=== PATIENT | male | born 1960 | race Caucasian/White ===

== ENCOUNTER 2022-01-18 12:34 | Outpatient (REF) | payer MEDICARE, SELFPAY ==
[2022-01-18 14:09] LABS: MANUAL DIFF FLAG NO
[2022-01-18 14:13] LABS: Basophils Percent Auto 0.7 % (0-2); Eosinophils Absolute Auto 0.2 X10*3/uL (0.0-0.4); Eosinophils Percent Auto 3.2 % (0-4); Hematocrit 46.2 % (42.0-52.0); Hemoglobin 15.7 g/dl (14.0-18.0); Imm Gran Abs Auto 0.02 X10*3/uL (0.00-0.03); Imm Gran Pct Auto 0.3 % (0.0-0.4); Lymphocytes Absolute Auto 1.5 X10*3/uL (1.2-4.9); Lymphocytes Percent Auto 25.3 % (20-40); Mean Corpuscular Hemoglobin 30.5 pg (27.0-33.0); Mean Corpuscular Volume 89.7 fL (80.0-98.0); Mean Platelet Volume 11.4 fL (9.4-12.4); Monocytes Absolute Auto 0.6 X10*3/uL (0.1-1.2); Monocytes Percent Auto 9.5 % (2-11); Neutrophils Absolute Auto 3.7 x10*3/uL (2.0-8.3); Platelet Count 189 X10*3/uL (160-400); Red Blood Count 5.15 X10*6/uL (4.60-5.80); Red Cell Distribution Width 12.2 % (11.0-16.0)
[2022-01-18 14:46] LABS: Alanine Aminotransferase 23 U/L (0-40); Albumin Level 4.3 g/dL (3.5-5.0); Alkaline Phosphatase 110 U/L (39-117); Anion Gap 14 (12-20); Aspartate Amino Transferase 19 U/L (5-37); Bilirubin Total 0.8 mg/dL (0.0-1.0); Blood Urea Nitrogen 15 mg/dL (9-16); Calcium 9.3 mg/dL (8.4-10.2); Carbon Dioxide 26 mmol/L (22-29); Chloride 103 mmol/L (96-108); Cholesterol 183 mg/dL; Estimated Glomerular Filt Rate > 60; Glucose Fasting 87 mg/dL (60-99); HDL Cholesterol 40 mg/dL; LDL Cholesterol Calculated 115 mg/dl; Potassium 3.9 mmol/L (3.3-5.1); Sodium 139 mmol/L (135-145); Total Protein 6.6 g/dL (6.5-8.0); Triglycerides 143 mg/dL
[2022-01-18 15:08] LABS: Prostate Specific Antigen Scr 1.89 ng/mL (<0.05-4.0); TSH reflex Free T4 0.88 uIU/mL (0.32-4.0)
[2022-01-22 18:23] LABS: Testosterone, Free 63.3 pg/mL (35.0-155.0); Testosterone, Total 386 ng/dL (250-1100)
== END 2022-01-18 12:35 | disposition home or self-care (01) ==
LOC: HO.WFDLDS 12:34
PROVIDERS: Visit Provider Family Medicine
DX: Z00.00 Encounter for general adult medical examination without abnormal findings (principal); Z12.5 Encounter for screening for malignant neoplasm of prostate; M54.9 Dorsalgia, unspecified; G89.29 Other chronic pain
CPT/HCPCS: 36415; 80053; 80061; 84153; 84402; 84403; 84443; 85025

== ENCOUNTER 2022-02-15 11:00 | Outpatient (RCR) | payer MEDICARE, SELFPAY ==
[2022-01-28 10:13] VITALS: BP 120/78; PULSE 60; O2SAT 97
== END 2022-03-22 12:37 | disposition home or self-care (01) ==
LOC: HO.PTWFD 11:00
PROVIDERS: Visit Provider Family Medicine
DX: M54.9 Dorsalgia, unspecified (principal)
CPT/HCPCS: 97110; 97162; 97530

== ENCOUNTER → 2022-09-15 09:39 | Outpatient (BNVA) | payer MEDICARE, SELFPAY | PROVIDERS: PCP Family Medicine; Visit Provider Urology | DX: N53.19 Other ejaculatory dysfunction (principal) | CPT/HCPCS: 99202 ==

== ENCOUNTER 2022-12-14 07:49 | Outpatient (REF) | payer MEDICARE, SELFPAY ==
[2022-12-18 18:04] LABS: Testosterone, Free 71.6 pg/mL (35.0-155.0); Testosterone, Total 296 ng/dL (250-1100)
== END 2022-12-14 07:50 | disposition home or self-care (01) ==
LOC: HO.WFDLDS 07:49
PROVIDERS: Visit Provider Urology
DX: N53.19 Other ejaculatory dysfunction (principal)
CPT/HCPCS: 36415; 84402; 84403

== ENCOUNTER 2022-12-21 11:08 | Outpatient (AMB) | payer MEDICARE, SELFPAY ==
--- NOTE | 2022-12-21 11:10 | A.OFFVIS_ITS ---
Intake Intake Visit Reasons: 3M Testosterone(Pending) Intake Note: Patient is present for Telephone Testosterone Urology Med:Tadalafil Antibiotic Allergy: none Blood Thinner: none [facility] Allergies meperidine [Demerol] Allergy (Unknown, Verified 12/21/22 11:11) hives bandages Allergy (Mild, Uncoded 12/21/22 11:11) itchy rash Medication List - Last Reconciled 12/21/22 by Tevin Murray MD albuterol sulfate 90 mcg/actuation 2 puffs PO Q4-6H PRN gabapentin 300 mg PO QID PRN lisinopril-hydrochlorothiazide 10-12.5 mg 1 tab PO DAILY 30 days montelukast 10 mg PO BEDTIME 90 days multivitamin (One Daily Multivitamin tablet) 1 tab PO DAILY HPI HPI Comments History of Present Illness Details Aaron is a pleasant male. He is a patient of Dr. Davis. He seen for the following urologic conditions - erectile disorder Telemedicine Evaluation 15 min Consultation [facility] Te[employer] Video attempted Had to stop medications due to heartburn - both daily low dose and on demand Will trial 100 mg sildenafil Erectile disorder Cannot maintain erection Has trouble reaching climax Minimal ejaculatory volume Subsequent secondary depression Baseline labs 01/11 T 386, 12/12 T 300 Fr 72 Failed daily tadalafil with heartburn Understands therapy directed towards obtaining and maintaining erection Further treatment may be required for climax PFSH Social History Housing: House Alcohol intake: current Alcohol intake frequency: holidays/special occasions only Alcohol type: wine Patient Tobacco Use Status: Former Tobacco user e-Cigarette/Vaping Use: Never Used Second Hand Smoke Exposure: No Substance Use Type: Marijuana service: No Current occupational status: retired and disabled Current occupational exposures/hazards: No Cognitive needs: Yes (cane, walker, wheelchair) Hearing needs: No Vision needs: Yes (glasses) Review of Systems Const All systems reviewed & are unremarkable except as noted in HPI and below Reports no additional complaints Resp Reports no additional complaints GI Reports no additional complaints Reports as per HPI Musc Reports no additional complaints Physical Exam Telemedicine evaluation Appropriate responses Regular breathing rate and rhythm HEENT Head: Yes normal to inspection Ears: hearing grossly normal bilaterally Eyes General: appearance normal, both eyes and all related structures Neck Neck: Yes normal visual inspection Chest Chest palpation & inspection: normal inspection of the chest Resp Effort & Inspection: normal respiratory effort and able to speak in complete sentences Assessment & Plan Assessment & Plan (1) Erectile dysfunction: Code(s): N52.9 - Male erectile dysfunction, unspecified Plan Trial sildenafil Medications: New sildenafil administer 60 minutes before intended activity 100 mg PO ONCE 30 days PRN 30 tabs 1RF sexual activity N52.9 - Male erectile dysfunction, unspecified Discontinued tadalafil Discontinued Reason: Patient Completed Course 5 mg PO DAILY 90 days 90 tabs 0RF sexual activity N53.19 - Other ejaculatory dysfunction tadalafil Discontinued Reason: Patient Completed Course 20 mg PO DAILY 30 days PRN 30 tabs 0RF sexual activity N53.19 - Other ejaculatory dysfunction Patient Instructions: Imaging studies, laboratory and physical exam results were discussed and reviewed in detail. No major barriers to patient understanding were identified. An opportunity to ask questions regarding the treatment plan was provided. All questions were answered. The patient expressed understanding and agreement with the above treatment plan. The patient is aware they should contact our office by phone for worsening of their current condition or the appearance of new urologic symptoms. Compliance is encouraged with any medications and followup testing that is ordered. It is a privilege to participate in the urologic care of your patient. If you have any questions or concerns regarding treatment for the above conditions, or other urologic issues, please do not hesitate to contact me. The office telephone contact is [phone]. This note is constructed using voice recognition software. While every effort has been made to ensure accuracy welding lead burner errors may have been included. Yours sincerely, Dr Tevin Murray MD, [facility] - Urology Providers of Expert, Compassionate Care for the Genitourinary System Telehealth Telehealth Location of provider rendering services: practice address Location of patient: address on file Patient Identification confirmed using: Name, : Yes Telehealth method: video Patient verbally consented to treatment: Yes Patient verbally consented to billing insurance company: Yes Patient informed of any privacy concerns related to visit: Yes Coding Level of Care Code Tele Est Pt Level 4 (89054) Diagnoses Erectile dysfunction N52.9
== END 2022-12-21 11:41 | disposition home or self-care (01) ==
LOC: HO.HUSH 11:08
PROVIDERS: PCP Family Medicine; Visit Provider Urology
DX: N52.9 Male erectile dysfunction, unspecified (principal)
CPT/HCPCS: 99214

== ENCOUNTER → 2022-12-21 11:08 | Outpatient (BNVA) | payer MEDICARE, SELFPAY | PROVIDERS: PCP Family Medicine; Visit Provider Urology ==

== ENCOUNTER 2023-02-03 13:15 | Outpatient (REF) | payer MEDICARE, SELFPAY ==
--- NOTE | ~2023-02-03 | MR_ITS ---
EXAMINATION: MR BRAIN WITHOUT AND WITH CONTRAST CLINICAL INFORMATION: Pituitary adenoma. Acoustic neuroma. COMPARISON: Brain MRI 12/04/2021. TECHNIQUE: Multiplanar, multisequence imaging of the brain was performed before and after the intravenous administration of 5 mL of Gadavist. FINDINGS: There is nodular enhancement within the right internal auditory canal measuring up to 6 x 3 mm which appears stable compared with 12/18/2020 and is compatible with patient's known vestibular schwannoma. The inner ear structures are otherwise unremarkable. There is a hypoenhancing lesion within the left aspect of the pituitary gland extending into the cavernous sinus measuring up to 1.3 x 1.2 cm compatible with pituitary adenoma. This lesion appears stable in size compared with 12/18/2020. The normal left cavernous carotid flow void appears maintained. There is no compression of the optic apparatus. There is no acute infarction, hemorrhage, or extra-axial fluid collection. The cerebellar tonsils terminate at the foramen magnum. Mild nonspecific foci of T2/FLAIR hyperintensity are seen within the cerebral white matter. There is a stable right middle cranial fossa arachnoid cyst with mild mass effect on the temporal lobe parenchyma. No hydrocephalus is seen. No abnormal parenchymal enhancement is seen. The arterial flow voids are preserved at the skull base. There is mild paranasal sinus mucosal thickening. MR/MR head/brain wo/w con IMPRESSION: 1. Stable appearance of the right-sided vestibular schwannoma measuring up to 6 x 3 mm. 2. Stable appearance of the left-sided pituitary adenoma measuring up to 1.3 x 1.2 cm. 3. Stable right middle cranial fossa arachnoid cyst.
[2023-02-03] MEDS: gadobutroL 7.5 ML VIAL IVPUSH (14:33)
== END 2023-02-03 13:16 | disposition home or self-care (01) ==
LOC: HO.MRI 13:15
PROVIDERS: PCP Family Medicine; Visit Provider Neurological Surgery
DX: D49.7 Neoplasm of unspecified behavior of endocrine glands and other parts of nervous system (principal); D33.3 Benign neoplasm of cranial nerves
CPT/HCPCS: 70553; A9585

== ENCOUNTER 2023-02-14 11:29 | Outpatient (AMB) | payer MEDICARE, SELFPAY ==
--- NOTE | 2023-02-14 11:35 | A.OFFPC_ITS ---
Vital Signs 02/14/23 11:37 Height 5 ft 9 in Weight 260 lb BMI 38.4 BP 142/78 H Blood Pressure Location Lt brachial Position Sitting Pulse 76 Pulse Source Pulse Oximeter Pulse Oximetry (%) 96 Oxygen Delivery Method Room Air Intake Visit Reasons: f/u hypertension Intake Note: Patient is here to follow up on hypertension today. Allergies meperidine [Demerol] Allergy (Unknown, Verified 02/14/23 11:39) hives bandages Allergy (Mild, Uncoded 02/14/23 11:39) itchy rash Tobacco use date assessed: 02/14/23 Dental Screening Dental Screen Date: 02/14/23 Did you have a dental visit in the last 12 months?: Yes Did you have a dental problem in the last 6 months where you did not have access to dental care?: No Was dental information given to patient?: Patient has dentist HPI f/u hypertension HPI Details 62 y/o male presents to f/u hypertension and chronic conditions. Blood pressure today 142/78. He is on lisinopril-HCTZ 10-12.5mg daily. Pt reports ongoing chronic back pain. [facility] Social History Housing: House Alcohol intake: current Alcohol intake frequency: holidays/special occasions only Alcohol type: wine Patient Tobacco Use Status: Former Tobacco user e-Cigarette/Vaping Use: Never Used Second Hand Smoke Exposure: No Substance Use Type: Marijuana service: No Current occupational status: retired and disabled Current occupational exposures/hazards: No Cognitive needs: Yes (cane, walker, wheelchair) Hearing needs: No Vision needs: Yes (glasses) Questionnaire Thrive Questionnaire Date Thrive assessed: 01/11/22 SHWETA-7 AMB Questionnaire SHWETA-7 Date SHWETA - 7 assessed: 04/05/22 Source: Developed by Drs. Federico Kwan, Raven Anderson, Arnulfo Cooley and colleagues, with an educational jacob from [employer]. Review of Systems Const Denies chills, Denies fatigue, Denies fever(s), Denies headache(s) and Denies weakness ENT Denies dizziness and Denies headache(s) Card Denies chest pain, Denies lightheadedness, Denies dyspnea and Denies other (Palpitations) Resp Denies cough, Denies dyspnea, Denies wheezing and Denies other ( shortness of breath) Musc Denies numbness and Denies tingling Neuro Denies dizziness, Denies headache(s), Denies numbness, Denies tingling, Denies paresthesias and Denies weakness Psych Denies anxiety and Denies depression Endo Denies fatigue Aller/Immun Denies wheezing Physical exam (Primary Care) Vital Signs: Last Vital Signs Pulse 76 02/14/23 11:37 BP 142/78 H 02/14/23 11:37 Pulse Ox 96 02/14/23 11:37 Oxygen Delivery Method Room Air 02/14/23 11:37 BMI result Body Mass Index 38.4 Tobacco/Smoking Status: Tobacco use Status Tobacco use date assessed 02/14/23 02/14/23 11:40 Patient Tobacco Use Status Former Tobacco user 02/14/23 11:37 e-Cigarette/Vaping Use Never Used 02/14/23 11:37 Thrive Assessment: Date of Thrive Assessment Date Thrive assessed 01/11/22 02/14/23 11:37 Const General: no acute distress and well developed Nutritional Appearance: well nourished Orientation/consciousness: patient oriented x3 HENMT Head: Yes normocephalic and Yes atraumatic Eyes General: appearance normal, both eyes and all related structures Pupils: Equal, round and reactive pupils present EOM: EOMs intact bilaterally Resp Effort & Inspection: normal respiratory effort Auscultation: clear to auscultation bilaterally Cardio Rate: regular rate Rhythm: regular rhythm Heart sounds: S1 normal heart sound present, S2 normal heart sound present, no gallops, no murmurs and no rubs Neuro General: patient oriented x3 and gait normal Cranial nerves: Yes Equal, round and reactive pupils present Psych Affect: normal affect Assessment and Plan Assessment & Plan (1) Hypertension: Code(s): I10 - Essential (primary) hypertension Plan: Blood pressure is above goal of less than 140/90 Increase lisinopril an lisinopril-hydrochlorothiazide combo pill (2) Chronic back pain: Code(s): M54.9 - Dorsalgia, unspecified; G89.29 - Other chronic pain Plan: Chronic back pain with neuropathic pain in legs bilaterally He uses gabapentin at night which is not fully control his pain Trial switching to pregabalin (3) Neuropathic pain: Code(s): M79.2 - Neuralgia and neuritis, unspecified Plan: As above Medications: New pregabalin (Lyrica) 100 mg PO BID 60 caps 1RF 30 days lisinopril-hydrochlorothiazide 20-12.5 mg 1 tab PO DAILY 90 tabs 2RF 90 days Discontinued lisinopril-hydrochlorothiazide 10-12.5 mg Discontinued Reason: Doctor's Order 1 tab PO DAILY 30 tabs 2RF 30 days gabapentin Discontinued Reason: Doctor's Order 300 mg PO QID PRN 120 caps 11RF for pain Coding Level of Care Code Est Pt Level 3 (01683) Diagnoses Hypertension I10 Chronic back pain M54.9; G89.29 Neuropathic pain M79.2
[2023-02-14 11:37] VITALS: BP 142/78; PULSE 76; O2SAT 96; BMI 38.4
== END 2023-02-14 12:25 | disposition home or self-care (01) ==
PROVIDERS: PCP Family Medicine; Visit Provider Family Medicine
DX: I10 Essential (primary) hypertension (principal); M54.9 Dorsalgia, unspecified; G89.29 Other chronic pain; M79.2 Neuralgia and neuritis, unspecified
CPT/HCPCS: 99213

== ENCOUNTER 2023-03-14 09:13 | Outpatient (AMB) | payer MEDICARE, SELFPAY ==
--- NOTE | 2023-03-14 09:15 | A.OFFPC_ITS ---
Vital Signs 03/14/23 09:16 Height 5 ft 9 in Weight 262 lb BMI 38.7 BP 138/80 Blood Pressure Location Lt brachial Position Sitting Pulse 73 Pulse Source Pulse Oximeter Pulse Oximetry (%) 95 Oxygen Delivery Method Room Air Intake Visit Reasons: f/u hypertension and chronic neuropathic pain Intake Note: Patient is here for follow up on hypertension and chronic neuropathic pain. Allergies meperidine [Demerol] Allergy (Unknown, Verified 03/14/23 09:19) hives bandages Allergy (Mild, Uncoded 03/14/23 09:19) itchy rash Medication List - Last Reconciled 03/14/23 by Santy Davis MD albuterol sulfate 90 mcg/actuation 2 puffs PO Q4-6H PRN lisinopril-hydrochlorothiazide 20-12.5 mg 1 tab PO DAILY 90 days montelukast 10 mg PO BEDTIME 90 days multivitamin (One Daily Multivitamin tablet) 1 tab PO DAILY pregabalin (Lyrica) 100 mg PO BID 30 days sildenafil 100 mg PO ONCE PRN 30 days Tobacco use date assessed: 03/14/23 Dental Screening Dental Screen Date: 03/14/23 Did you have a dental visit in the last 12 months?: Yes Did you have a dental problem in the last 6 months where you did not have access to dental care?: No Was dental information given to patient?: Patient has dentist HPI f/u hypertension and chronic neuropathic pain HPI Details 62 y/o male presents to f/u hypertension and chronic neuropathic pain. Blood pressure today 138/80. He is on lisinopril-HCTZ 20-12.5mg daily. Had switched gabapentin to Lyrica last office visit. He notes lyrica has been making him tired and has a difficult time getting used to it. [facility] Social History Housing: House Alcohol intake: current Alcohol intake frequency: holidays/special occasions only Alcohol type: wine Patient Tobacco Use Status: Former Tobacco user e-Cigarette/Vaping Use: Never Used Second Hand Smoke Exposure: No Substance Use Type: Marijuana service: No Current occupational status: retired and disabled Current occupational exposures/hazards: No Cognitive needs: Yes (cane, walker, wheelchair) Hearing needs: No Vision needs: Yes (glasses) Questionnaire Thrive Questionnaire Date Thrive assessed: 01/11/22 SHWETA-7 AMB Questionnaire SHWETA-7 Date SHWETA - 7 assessed: 04/05/22 Source: Developed by Drs. Federico Kwan, Raven Anderson, Arnulfo Cooley and colleagues, with an educational jacob from [employer] Review of Systems Const Denies chills, Denies fatigue, Denies fever(s), Denies headache(s) and Denies weakness ENT Denies dizziness and Denies headache(s) Card Denies dyspnea Resp Denies cough, Denies dyspnea, Denies wheezing and Denies other (shortness of breath) Musc Denies numbness and Denies tingling Neuro Denies dizziness, Denies headache(s), Denies numbness, Denies tingling and Denies weakness Psych Denies anxiety and Denies depression Endo Denies fatigue Aller/Immun Denies wheezing Physical exam (Primary Care) Vital Signs: Last Vital Signs Pulse 73 03/14/23 09:16 BP 138/80 03/14/23 09:16 Pulse Ox 95 03/14/23 09:16 Oxygen Delivery Method Room Air 03/14/23 09:16 BMI result Body Mass Index 38.7 Tobacco/Smoking Status: Tobacco use Status Tobacco use date assessed 03/14/23 03/14/23 09:22 Patient Tobacco Use Status Former Tobacco user 03/14/23 09:22 e-Cigarette/Vaping Use Never Used 03/14/23 09:22 Thrive Assessment: Date of Thrive Assessment Date Thrive assessed 01/11/22 03/14/23 09:22 Const General: well developed; No acute distress Nutritional Appearance: well nourished Orientation/consciousness: patient oriented x3 HENMT Head: Yes normocephalic and Yes atraumatic Eyes General: appearance normal, both eyes and all related structures Pupils: Equal, round and reactive pupils present EOM: EOMs intact bilaterally Resp Effort & Inspection: normal respiratory effort Auscultation: clear to auscultation bilaterally Cardio Rate: regular rate Rhythm: regular rhythm Heart sounds: S1 normal heart sound present, S2 normal heart sound present, no gallops, no murmurs and no rubs Neuro General: patient oriented x3 and gait normal Cranial nerves: Yes Equal, round and reactive pupils present Psych Affect: normal affect Assessment and Plan Assessment & Plan (1) Hypertension: Code(s): I10 - Essential (primary) hypertension Plan: Blood?pressure?is?controlled.??Goal?is?less?than?140/90 No?change?to?current?medication?regimen Encouraged?low-sodium?diet,?weight?loss?and?exercise?as?tolerated. (2) Neuropathic pain: Code(s): M79.2 - Neuralgia and neuritis, unspecified Plan: Ongoing?lower?extremity?pain?and?weakness Tolerating?Lyrica?except?for?having?some?sleepiness?from?this. Take?Lyrica?earlier?in?the?evening. Will?increase?dose?of?Lyrica?from?100?mg?q.h.s.?to?200?mg?q.h.s. (3) Chronic back pain: Code(s): M54.9 - Dorsalgia, unspecified; G89.29 - Other chronic pain Plan: Significant?low?back?pain Started?Lyrica?and?he?is?tolerating?it?fairly?well?but?still?has?pain?and?neurop athic?pain?in?lower?extremities. Adjusting?Lyrica?as?above Patient?has?difficulty?adjusting?bed?an d?pillows?as?well?as?pill?is?under?his?legs?to?get?comfortable?while?sleeping. This?is?likely?affecting?his?ability?to?improve?and?recover. He?will?benefit?from?an electric?adjustable?bed.??Ordered. Orders: Orders Prostate Specific Antigen Scr Today Z12.5 - Encounter for screening for malign ant neoplasm of prostate Lipid Panel Today Z00.00 - Encounter for general adult medical examination without abnormal findings TSH reflex Free T4 Today Z00.00 - Encounter for general adult medical examination without abnormal findings Comprehensive [place]. Panel Fast Today Z00.00 - Encounter for general adult medical examination without abnormal findings Microalbumin, Random (w Creat) Today I10 - Essential (primary) hypertension UA and rflx microscopic Today Z00.00 - Encounter for general adult medical examination without abnormal findings Medications: New hospital bed (bed,hospital) Electric adjustable bed, Daily As directed, 999 days 1 ea 0RF G89.29 - Other chronic pain, M54.9 - Dorsalgia, unspecified, M79.2 - Neuralgia and neuritis, unspecified, R26.81 - Unsteadiness on feet, R53.1 - Weakness Changed From pregabalin (Lyrica) 100 mg PO BID 30 days 60 caps 1RF To pregabalin (Lyrica) 200 mg (2 x 100 mg) PO BEDTIME 30 days 60 caps 1RF Coding Level of Care Code Est Pt Level 4 (97705) Diagnoses Hypertension I10 Neuropathic pain M79.2 Chronic back pain M54.9; G89.29
[2023-03-14 09:16] VITALS: BP 138/80; PULSE 73; O2SAT 95; BMI 38.7
== END 2023-03-14 10:10 | disposition home or self-care (01) ==
PROVIDERS: PCP Family Medicine; Visit Provider Family Medicine
DX: I10 Essential (primary) hypertension (principal); M79.2 Neuralgia and neuritis, unspecified; M54.9 Dorsalgia, unspecified; G89.29 Other chronic pain
CPT/HCPCS: 99214

== ENCOUNTER 2023-03-24 12:09 | Outpatient (AMB) | payer MEDICARE, SELFPAY ==
--- NOTE | 2023-03-24 12:10 | MHC.OFFVIS ---
Intake Intake Visit Reasons: 3m follow up Intake Note: Patient is present for Telephone Testosterone Urology Med:Tadalafil Blood Thinner: none Service Station Helper Required: No Allergies latex Allergy (Mild, Verified 04/25/23 11:08) rash meperidine [Demerol] Allergy (Unknown, Verified 04/25/23 11:08) hives bandages Allergy (Mild, Uncoded 04/25/23 11:08) itchy rash HPI HPI Comments History of Present Illness Details Aaron is a pleasant male. He is a patient of Dr. Davis. He seen for the following urologic conditions - erectile disorder - lower urinary tract symptoms Telemedicine Evaluation 15 min Consultation [employer] Tereso Video attempted Had to stop tadalafil medications due to heartburn - both daily low dose and on demand Will trial 100 mg sildenafil Also notes weakness of stream - trial alpha liv Erectile disorder Cannot maintain erection Has trouble reaching climax Minimal ejaculatory volume Subsequent secondary depression Baseline labs 01/11 T 386, 12/12 T 300 Fr 72 Failed daily tadalafil with heartburn Understands therapy directed towards obtaining and maintaining erection Further treatment may be required for climax PFSH Surgical History (Updated 04/25/23 @ 11:12 by Kaye Garcia [facility]) History of spinal fusion History of eye surgery Social History Housing: House Alcohol intake: current Alcohol intake frequency: holidays/special occasions only Alcohol type: wine Patient Tobacco Use Status: Former Tobacco user e-Cigarette/Vaping Use: Never Used Second Hand Smoke Exposure: No Substance Use Type: Marijuana service: No Current occupational status: retired and disabled Current occupational exposures/hazards: No Cognitive needs: Yes (cane, walker, wheelchair) Hearing needs: No Vision needs: Yes (glasses) Review of Systems Const All systems reviewed & are unremarkable except as noted in HPI and below Reports no additional complaints Resp Reports no additional complaints GI Reports no additional complaints Reports as per HPI Musc Reports no additional complaints Physical Exam Telemedicine evaluation Appropriate responses Regular breathing rate and rhythm HEENT Head: Yes normal to inspection Ears: hearing grossly normal bilaterally Eyes General: appearance normal, both eyes and all related structures Neck Neck: Yes normal visual inspection Chest Chest palpation & inspection: normal inspection of the chest Resp Effort & Inspection: normal respiratory effort and able to speak in complete sentences Assessment & Plan Assessment & Plan (1) Bladder outlet obstruction: Code(s): N32.0 - Bladder-neck obstruction Plan Two month follow-up PVR Orders: Orders US bladder 03/24/23 R39.12 - Poor urinary stream, N32.0 - Bladder-neck obstruction Medications: New tamsulosin 0.4 mg PO BEDTIME 30 caps 1RF 30 days N32.0 - Bladder-neck obstruction, R35.1 - Nocturia, N40.1 - Benign prostatic hyperplasia with lower urinary tract symptoms Patient Instructions: Imaging studies, laboratory and physical exam results were discussed and reviewed in detail. No major barriers to patient understanding were identified. An opportunity to ask questions regarding the treatment plan was provided. All questions were answered. The patient expressed understanding and agreement with the above treatment plan. The patient is aware they should contact our office by phone for worsening of their current condition or the appearance of new urologic symptoms. Compliance is encouraged with any medications and followup testing that is ordered. It is a privilege to participate in the urologic care of your patient. If you have any questions or concerns regarding treatment for the above conditions, or other urologic issues, please do not hesitate to contact me. The office telephone contact is [phone]. This note is constructed using voice recognition software. While every effort has been made to ensure accuracy client service coordinator errors may have been included. Yours sincerely, Dr Tevin Murray MD, [facility] - Urology Providers of Expert, Compassionate Care for the Genitourinary System Telehealth Telehealth Location of provider rendering services: practice address Location of patient: address on file Patient Identification confirmed using: Name, : Yes Telehealth method: video Patient verbally consented to treatment: Yes Patient verbally consented to billing insurance company: Yes Patient informed of any privacy concerns related to visit: Yes Coding Level of Care Code Tele Est Pt Level 4 (43994) Diagnoses Bladder outlet obstruction N32.0
== END 2023-03-24 12:31 | disposition home or self-care (01) ==
LOC: HO.HUSH 12:10
PROVIDERS: PCP Family Medicine; Visit Provider Urology
DX: N32.0 Bladder-neck obstruction (principal)
CPT/HCPCS: 99214

== ENCOUNTER → 2023-03-24 12:09 | Outpatient (BNVA) | payer MEDICARE, SELFPAY | PROVIDERS: PCP Family Medicine; Visit Provider Urology ==

== ENCOUNTER 2023-04-25 10:52 | Outpatient (AMB) | payer MEDICARE, SELFPAY ==
--- NOTE | 2023-04-25 10:56 | MHC.PC.OV ---
Vital Signs 04/25/23 10:57 Height 5 ft 9 in Weight 280 lb BMI 41.3 BP 138/64 Blood Pressure Location Lt brachial Position Sitting Respiration 14 Pulse 82 Pulse Source Pulse Oximeter Pulse Oximetry (%) 97 Oxygen Delivery Method Room Air Intake Visit Reasons: Annual Physical Intake Note: Patient is here for a physical and he reports he would like a dermatology referral for a skin check. 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 No recent labs to review. Pt is requesting dermatology referral for a skin check. Pt reports he has not been able to exercise much due to his back pain. Has seen pain management. Followed by urology. He reports he thinks he is due for a colonoscopy. [facility] Surgical History (Updated 04/25/23 @ 11:12 by Kaye Garcia [facility]) History of spinal fusion History of eye surgery Social History Housing: House Alcohol intake: current Alcohol intake frequency: holidays/special occasions only Alcohol type: wine Patient Tobacco Use Status: Former Tobacco user e-Cigarette/Vaping Use: Never Used Second Hand Smoke Exposure: No Substance Use Type: Marijuana service: No Current occupational status: retired and disabled Current occupational exposures/hazards: No Cognitive needs: Yes (cane, walker, wheelchair) Hearing needs: No Vision needs: Yes (glasses) Questionnaire PHQ-9 Over the last 2 weeks, how often have you been bothered by any of the following problems? 1. Little interest or pleasure in doing things: not at all 2. Feeling down, depressed, or hopeless: not at all 3. Trouble falling or staying asleep, or sleeping too much: not at all 4. Feeling tired or having little energy: not at all 5. Poor appetite or overeating: not at all 6. Feeling bad about yourself - or that you are a failure or have let yourself or your family down: not at all 7. Trouble concentrating on things, such as reading the newspaper or watching television: not at all 8. Moving or speaking so slowly that other people could have noticed. Or the opposite - being so fidgety or restless that you have been moving around a lot more than usual: not at all 9. Thoughts that you would be better off or of hurting yourself in some way: not at all Total score: 0 Depression Screening Interpretation: Negative Depression Screening Done: Yes [id number] - PHQ-9 Billing: Yes Source: Developed by Drs. Federico Kwan, Raven Anderson, Arnulfo Cooley and colleagues, with an educational jacob from [employer]. Thrive Questionnaire Date Thrive assessed: 04/25/23 I am a: Patient What is your living situation today?: I have a steady place to live Within the past 12 months, did the food you bought not last and you didn't have the money to get more?: Never true Within the past 12 months, did you worry whether your food would run out before you got money to buy more?: Never true Do you have trouble paying for medicines?: No Do you have trouble getting transportation to medical appointments?: No Do you have trouble paying your heating and electricity bill?: No Do you have trouble taking care of your child, family member or friend?: No Do you have trouble with day-to-day activities such as bathing, preparing meals, shopping, managing finances, etc.?: No Are you currently unemployed and looking for a job?: No Are you interested in more education?: No Please select the resources that you would like help with: None Currently or been in a relationship where the following occur: no concerns reported AUDIT C Alcohol Use Questionnaire (AUDIT-C) 1. How often do you have a drink containing alcohol?: Never 3. How often do you have six or more drinks on one occasion?: Never Total Score: 0 SHWETA-7 AMB Questionnaire SHWETA-7 Date SHWETA - 7 assessed: 04/25/23 Feeling nervous, anxious, or on edge: 0 = Not at all Not being able to stop or control worryin = Not at all Worrying too much about different things: 0 = Not at all Trouble relaxin = Not at all Being so restless that it is hard to sit still: 0 = Not at all Becoming easily annoyed or irritable: 0 = Not at all Feeling afraid as if something awful might happen: 0 = Not at all Total SHWETA-7 score (0-4 normal; 5-9 mild; 10-14 moderate; 15-21 severe): 0 Source: Developed by Drs. Federico Kwan, Raven Anderson, Arnulfo Cooley and colleagues, with an educational jacob from [employer]. SHWETA-7 Assessment Billing SHWETA-7 Assessment Tool: SHWETA-7 Assessment 16103 ACT Questionnaire In the past 4 weeks, how much of the time did your asthma keep you from getting as much done at work, school or at home?: None of the time During the past 4 weeks, how often have you had shortness of breath?: 1-2 times a week During the past 4 weeks, how often did your asthma symptoms wake you up at night or earlier than usual in the morning?: Not at all During the past 4 weeks, how often have you had to use your rescue inhaler or nebulizer medication?: Once a week or less How would you rate your asthma control during the past 4 weeks?: Completely controlled ACT Interpretation: Negative Score: 23 Review of Systems Const Denies chills, Denies fatigue, Denies fever(s), Denies headache(s) and Denies weakness Eyes Denies change in vision ENT Denies dizziness, Denies headache(s), Denies hearing loss, Denies nasal congestion, Denies sinus pain, Denies sinus pressure and Denies sore throat Card Denies chest pain, Denies lightheadedness, Denies dyspnea and Denies other (palpitations) Resp Denies cough, Denies dyspnea and Denies wheezing GI Denies abdominal pain, Denies melena, Denies hematochezia, Denies change in bowel habits, Denies dyspepsia and Denies nausea Denies hematuria and Denies dysuria Musc Denies abnormal gait, Denies myalgias, Denies arthralgias, Denies numbness and Denies tingling Skin/Breast Denies rash, Denies unusual bruising and Denies wounds Neuro Denies abnormal gait, Denies dizziness, Denies headache(s), Denies memory loss, Denies numbness, Denies Sensory deficit (Neuro), Denies tingling and Denies weakness Psych Denies anxiety, Denies depression and Denies memory loss Endo Denies cold intolerance, Denies fatigue, Denies heat intolerance, Denies polydipsia and Denies polyuria Rudy/Lymph Denies easy bleeding and Denies easy bruising Aller/Immun Denies wheezing Physical exam (Primary Care) Vital Signs: Last Vital Signs Pulse 82 04/25/23 10:57 Resp 14 04/25/23 10:57 BP 138/64 04/25/23 10:57 Pulse Ox 97 04/25/23 10:57 Oxygen Delivery Method Room Air 04/25/23 10:57 BMI result Body Mass Index 41.3 Tobacco/Smoking Status: Tobacco use Status Tobacco use date assessed 03/14/23 04/25/23 10:56 Patient Tobacco Use Status Former Tobacco user 04/25/23 10:56 e-Cigarette/Vaping Use Never Used 04/25/23 10:56 PHQ-9: PHQ-9 Score PHQ-9: Total score 0 04/25/23 11:46 Depression Screening Interpretation: Negative Thrive Assessment: Date of Thrive Assessment Date Thrive assessed 04/25/23 04/25/23 11:15 Currently or been in a relationship where the following occur: no concerns reported Const General: no acute distress, well developed, alert and awake Nutritional Appearance: well nourished Orientation/consciousness: patient oriented x3 HENMT Head: Yes normocephalic and Yes atraumatic Ears: hearing grossly normal bilaterally and TM's normal bilaterally General nose exam: Normal external nose present and Normal nares present Mouth: Normal oral and palatal mucosa present and moist mucous membranes Teeth and gingiva: dentition normal Throat: Yes posterior oropharynx normal Eyes General: appearance normal, both eyes and all related structures Pupils: Equal, round and reactive pupils present and Pupil accommodation reflex normal EOM: EOMs intact bilaterally Neck Neck: Yes normal visual inspection, Yes no lymphadenopathy and Yes trachea midline Thyroid: Thyroid normal Carotids: no bruits Lymphatic: no lymphadenopathy noted Chest Chest palpation & inspection: normal inspection of the chest Resp Effort & Inspection: normal respiratory effort Auscultation: clear to auscultation bilaterally Cardio Rate: regular rate Rhythm: regular rhythm Heart sounds: S1 normal heart sound present, S2 normal heart sound present, no gallops, no murmurs and no rubs Bruits: no abdominal aortic bruits and no carotid bruits GI Palpation (GI): No Abdominal aortic bruit present, Soft to palpation, nontender, No hepatosplenomegaly present and No Rebound tenderness present Auscultation: normal bowel sounds General: Yes no CVA tenderness Back/Spine/Pelvis Back: no CVA tenderness Cervical Spine: cervical ROM normal and No Cervical spine tenderness Thoracic/Lumbar Spine: thoraco-lumbar ROM normal, No pain with thoraco-lumbar ROM, No thoracic spinal tenderness and No lumbar spinal tenderness Skin Lesions: no lesions Rashes: no rashes Trauma: no lacerations or abrasions Wounds: no wounds Nails: normal Neuro General: patient oriented x3 Cranial nerves: Yes Equal, round and reactive pupils present Cognition (Neuro): normal cognition Gait exam (Neuro): Normal gait present Motor exam (neuro): 5/5 motor strength present throughout Sensory Exam: No Sensory deficit (Neuro) Deep tendon reflexes (DTR's): Right patellar reflex intensity grade: 2+ and Left patellar reflex intensity grade: 2+ Extrem General: Yes normal to inspection and No edema Psych Appearance: grossly normal Affect: normal affect Attitude: cooperative Thought process: Normal thought process present Office Procedures Flu Questionnaire Does the patient have a severe egg allergy?: No Does the patient have severe life threatening allergies?: No Does the patient have a fever or illness today?: No Has the patient ever had Guillain-Hammond Syndrome?: No Has the patient ever had any past reaction to a flu shot?: No Pulmonary Testing Pulmonary Testing Details: [phone] Personal best is 440 All charges added?: Additional procedure code (CPT) needed Immunizations flu vacc [id number] 6mos up(PF) 60 mcg(15 mcgx4)/0.5 mL IM syringe Performing Provider: Santy Davis MD Performing Location: [facility] Administered by: Kaye Garcia CMA on 04/25/23 12:17 Dose Route Admin Location Dispensed Lot Number Expiration Date NDC Per Diem Physical Therapist Assistant 0.5 mL IM Left Deltoid 0.5 mL [id number] 11/20/23 50628-013-11 Relead VIS Given Date VIS Provided VIS Publication Date 04/25/23 Single Vaccine 20 Eligibility Eligibility Date Funding Source Not [facility] Eligible 04/25/23 Private Assessment and Plan Assessment & Plan (1) Adult general medical exam: Code(s): Z00.00 - Encounter for general adult medical examination without abnormal findings Plan: 63-year-old?male?presents?for?complete?physical?exam (2) Asthma: Code(s): J45.909 - Unspecified asthma, uncomplicated Plan: Appears?well?controlled Continue?current?medication?regimen (3) GERD (gastroesophageal reflux disease): Code(s): K21.9 - Gastro-esophageal reflux disease without esophagitis Plan: Stable?and?controlled (4) Chronic back pain: Code(s): M54.9 - Dorsalgia, unspecified; G89.29 - Other chronic pain Plan: Ongoing?back?pain. Continue?pregabalin Trial?meloxicam Patient?has?tried?numerous?therapies?including?physical?therapy?and?pain?management?with?ablation?therapy. (5) Hypertension: Code(s): I10 - Essential (primary) hypertension Plan: Blood?pressure?is?controlled.??Goal?is?less?than?140/90 Continue?current?medication?regimen (6) Screening for colon cancer: Code(s): Z12.11 - Encounter for screening for malignant neoplasm of colon Plan: Due?for?colon?cancer?screening?follow-up. He?would?like?a?new?referral.??Will?refer?to?[facility] (7) Screening for prostate cancer: Code(s): Z12.5 - Encounter for screening for malignant neoplasm of prostate Plan: Followed?by?urology (8) Immunization counseling: Code(s): Z71.85 - Encounter for immunization safety counseling Plan: Gait?patient?flu?shot?today. Advised?next?COVID?shot?and?also?shingles?shot. Orders: Orders Pulmonary Test/Procedure Today R06.00 - Dyspnea, unspecified Influenza [id number] Immunization Today Z23 - Encounter for immunization Referrals Gastroenterology Referral Z12.11 - Encounter for screening for malignant neoplasm of colon Dermatology Referral Z12.83 - Encounter for screening for malignant neoplasm of skin, Z80.8 - Family history of malignant neoplasm of other organs or systems Medications: New meloxicam 15 mg PO DAILY 30 tabs 2RF 30 days Coding Level of Care Code Est Pt Level 3 (31814) Est Pt Prev Care 40-64y(79952) Diagnoses Adult general medical exam Z00.00 Asthma J45.909 GERD (gastroesophageal reflux disease) K21.9 Chronic back pain M54.9; G89.29 Hypertension I10 Screening for colon cancer Z12.11 Screening for prostate cancer Z12.5 Immunization counseling Z71.85 Additional Codes SHWETA-7 Assessment Billing - SHWETA-7 Assessment Tool: SHWETA-7 Assessment [id number] ([id number])
[2023-04-25 10:57] VITALS: BP 138/64; PULSE 82; RESP 14; O2SAT 97; BMI 41.3
== END 2023-04-25 12:10 | disposition home or self-care (01) ==
PROVIDERS: PCP Family Medicine; Visit Provider Family Medicine
DX: Z00.00 Encounter for general adult medical examination without abnormal findings (principal); J45.909 Unspecified asthma, uncomplicated; K21.9 Gastro-esophageal reflux disease without esophagitis; Z23 Encounter for immunization; M54.9 Dorsalgia, unspecified; G89.29 Other chronic pain; I10 Essential (primary) hypertension; Z12.11 Encounter for screening for malignant neoplasm of colon; Z12.5 Encounter for screening for malignant neoplasm of prostate; Z71.85 Encounter for immunization safety counseling
CPT/HCPCS: 90471; 90686; 99396

== ENCOUNTER 2023-04-29 09:49 | Outpatient (REF) | payer MEDICARE, SELFPAY ==
[2023-04-29 12:14] LABS: Appearance Urine Clear; Color Urine Yellow; Glucose Urine UA Negative (Negative); Leukocyte Esterase Urine Negative (Negative); Nitrite Urine Negative (Negative); PH 6.5 (5.0-9.0); Urine Blood Negative (Negative); Urine Ketones Negative (Negative); Urine Protein Negative (Neg-Trace)
[2023-04-29 12:46] LABS: Creatinine Urine 156.63 mg/dL; Microalbum/Creatinine Ratio Ur 30.6 ug/mg cr (<30)
[2023-04-29 13:12] LABS: Prostate Specific Antigen Scr 2.12 ng/mL (<0.05-4.0)
[2023-04-29 13:15] LABS: Alanine Aminotransferase 42 U/L (0-40); Albumin Level 4.3 g/dL (3.5-5.0); Alkaline Phosphatase 95 U/L (39-117); Anion Gap 12 (12-20); Aspartate Amino Transferase 26 U/L (5-37); Bilirubin Total 0.7 mg/dL (0.0-1.0); Blood Urea Nitrogen 19 mg/dL (9-16); Calcium 9.7 mg/dL (8.4-10.2); Carbon Dioxide 29 mmol/L (22-29); Chloride 104 mmol/L (96-108); Cholesterol 169 mg/dL (<200); Estimated Glomerular Filt Rate > 60; Glucose Fasting 94 mg/dL (60-99); HDL Cholesterol 39 mg/dL (>40); LDL Cholesterol Calculated 99 mg/dL (<100); Potassium 3.8 mmol/L (3.3-5.1); Sodium 141 mmol/L (135-145); Triglycerides 158 mg/dL (<150)
[2023-04-29 13:49] LABS: TSH reflex Free T4 1.28 uIU/mL (0.32-4.0)
== END 2023-04-29 09:50 | disposition home or self-care (01) ==
LOC: HO.WFDLDS 09:49
PROVIDERS: Visit Provider Family Medicine
DX: Z00.00 Encounter for general adult medical examination without abnormal findings (principal); Z12.5 Encounter for screening for malignant neoplasm of prostate; I10 Essential (primary) hypertension
CPT/HCPCS: 36415; 80053; 80061; 81003; 82043; 82570; 84153; 84443

== ENCOUNTER 2023-06-03 15:35 | Outpatient (REF) | payer MEDICARE, SELFPAY ==
--- NOTE | ~2023-06-03 | US_ITS ---
EXAMINATION: US PELVIS LIMITED (BLADDER) CLINICAL INFORMATION: Poor urinary stream. COMPARISON: None available. TECHNIQUE: Real-time imaging of the bladder. FINDINGS: BLADDER: Well distended and normal. Bilateral ureteral jets are demonstrated. Prevoid bladder volume is 632 mL. Postvoid bladder volume is 170 mL. ADDITIONAL FINDINGS: Prostate dimensions are 5.5 x 6.1 x 6.1 cm (volume 107.8 mL). US/US bladder IMPRESSION: 1. There is marked prostatomegaly. 2. There is an increased post-void residual volume.
== END 2023-06-03 15:36 | disposition home or self-care (01) ==
LOC: HO.US 15:35
PROVIDERS: PCP Family Medicine; Visit Provider Urology
DX: R39.12 Poor urinary stream (principal); N32.0 Bladder-neck obstruction
CPT/HCPCS: 76857

== ENCOUNTER 2023-06-09 15:16 | Outpatient (AMB) | payer MEDICARE, SELFPAY ==
--- NOTE | 2023-06-09 15:08 | MHC.PC.OV ---
Intake Visit Reasons: f/u CPE-labs Intake Note: Patient states that he stopped taking meloxicam due to him having a headache that lasted for days and was told he was unable to take aspirin or aleve while taking meloxicam. 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 Labs were drawn 04/29/23. Reviewed labs with pt. Mildly elevated ALT of 42. Triglycerides 158. TC 169. LDL 99. HDL low at 39. Pt notes he has not been able to exercise due to the pain. Had given him meloxicam but he states this did not do anything. Has been using Lyrica 200mg. Pt states he had been to pain management. [facility] Surgical History (Updated 04/25/23 @ 11:12 by Kaye Garcia [facility]) History of spinal fusion History of eye surgery Social History Housing: House Alcohol intake: current Alcohol intake frequency: holidays/special occasions only Alcohol type: wine Patient Tobacco Use Status: Former Tobacco user e-Cigarette/Vaping Use: Never Used Second Hand Smoke Exposure: No Substance Use Type: Marijuana service: No Current occupational status: retired and disabled Current occupational exposures/hazards: No Cognitive needs: Yes (cane, walker, wheelchair) Hearing needs: No Vision needs: Yes (glasses) Questionnaire Thrive Questionnaire Date Thrive assessed: 04/25/23 SHWETA-7 AMB Questionnaire SHWETA-7 Date SHWETA - 7 assessed: 04/25/23 Source: Developed by Drs. Federico Kwan, Raven Anderson, Arnulfo Cooley and colleagues, with an educational jacob from [employer]. Review of Systems Const Denies chills, Denies fatigue, Denies fever(s), Denies headache(s) and Denies weakness ENT Denies dizziness and Denies headache(s) Card Denies dyspnea Resp Denies cough, Denies dyspnea, Denies wheezing and Denies other (shortness of breath) Musc Denies numbness and Denies tingling Neuro Denies dizziness, Denies headache(s), Denies numbness, Denies tingling and Denies weakness Psych Denies anxiety and Denies depression Endo Denies fatigue Aller/Immun Denies wheezing Physical exam (Primary Care) Tobacco/Smoking Status: Tobacco use Status Tobacco use date assessed 03/14/23 06/09/23 15:15 Patient Tobacco Use Status Former Tobacco user 06/09/23 15:15 e-Cigarette/Vaping Use Never Used 06/09/23 15:15 Thrive Assessment: Date of Thrive Assessment Date Thrive assessed 04/25/23 06/09/23 15:15 Telehealth Telehealth Location of provider rendering services: practice address Location of patient: address on file Patient Identification confirmed using: Name, : Yes Telehealth method: voice only Patient verbally consented to treatment: Yes Patient verbally consented to billing insurance company: Yes Patient informed of any privacy concerns related to visit: Yes Minutes spent on Phone/Video with Pt.: 20 Assessment and Plan Assessment & Plan (1) Elevated liver enzymes: Code(s): R74.8 - Abnormal levels of other serum enzymes Plan: Encouraged?weight?loss.??Patient?is?having?difficulty?with?this?due?to?significant?pain. Will?try?to?help?him?with?weight?loss Continue?to?work?at?diet (2) Chronic back pain: Code(s): M54.9 - Dorsalgia, unspecified; G89.29 - Other chronic pain Plan: Will?increase?his?pregabalin?tto?100?mg?in?the?morning?and?200?mg?at?night (3) Low HDL (under 40): Code(s): E78.6 - Lipoprotein deficiency Plan: Increase?flaxseed?oil Work?at?exercise?when?able (4) Microalbuminuria: Code(s): R80.9 - Proteinuria, unspecified Plan: Elevated?microalbumin?creatinine?ratio We?discussed?that?we?may?want?to?tighten?control?of?his?blood?pressure?if?this?remains?elevated. Will?recheck?prior?to?his?next?visit Medications: New semaglutide (weight loss) (Kavita) administer weeks 1 through 4 of therapy 0.25 mg (0.5 mL) subcut QWEEK 2 mL 2RF 28 days E66.9 - Obesity, unspecified, G89.29 - Other chronic pain, M54.9 - Dorsalgia, unspecified Changed From pregabalin (Lyrica) 200 mg (2 x 100 mg) PO BEDTIME 30 days 60 caps 1RF To pregabalin (Lyrica) 1 cap (100mg) AM and 2 caps (200mg) PM orally 2 times a day; 90 caps 1RF 30 days Coding Level of Care Code Tele Est Pt Level 3 (20449) Diagnoses Elevated liver enzymes R74.8 Chronic back pain M54.9; G89.29 Low HDL (under 40) E78.6 Microalbuminuria R80.9
== END 2023-06-09 16:00 ==
LOC: HO.HMGFM 15:16
PROVIDERS: PCP Family Medicine; Visit Provider Family Medicine
DX: R74.8 Abnormal levels of other serum enzymes (principal); M54.9 Dorsalgia, unspecified; G89.29 Other chronic pain; E78.6 Lipoprotein deficiency; R80.9 Proteinuria, unspecified
CPT/HCPCS: 99442

== ENCOUNTER 2023-06-27 08:52 | Outpatient (AMB) | payer MEDICARE, SELFPAY ==
--- NOTE | 2023-06-27 08:54 | A.OFFVIS_ITS ---
Intake Vital Signs 06/27/23 08:55 Height 5 ft 9 in Weight 279 lb 8.738 oz BMI 41.3 BP 144/65 H Blood Pressure Location Rt brachial Position Sitting Pulse 82 Pulse Source Pulse Oximeter Intake Visit Reasons: Colonoscopy Screening Intake Note: Pt presents to the office today for a colonoscopy screening. Pt states he is feeling well but states he has had issues with constipation since he was a child. Pt states he sometimes can go 2-3 weeks without having a bowel movement. Pt denies any other GI concerns at this. Allergies latex Allergy (Mild, Verified 06/27/23 08:55) rash meperidine [Demerol] Allergy (Unknown, Verified 06/27/23 08:55) hives meloxicam Adverse Reaction (Intermediate, Verified 06/27/23 08:55) Migraine bandages Allergy (Mild, Uncoded 06/27/23 08:55) itchy rash HPI Colonoscopy Screening HPI Details 63-year-old male with past medical histo ry of hypertension, asthma, anxiety, depression, GERD is here today for initial consultation. Patient was sent to us for colonoscopy screening. Last colonoscopy in February of 2019, no polyps, previously patient was found to have polyps on colonoscopies. Patient has a family history of CRC. Both of patient's brothers had CRC. Patient reports that he has been constipated, sometimes no BM for 1-2 weeks. Patient is taking Metamucil. In the past use MiraLax without any success. Patient reports that he has had constipation since childhood. Patient denies any melena, hematochezia, unintentional weight loss or ribbon like stools. Patient denies any dyspepsia, dysphagia or odynophagia. Patient denies any other GI concerning symptoms. Will be due to go for colonoscopy in February. [facility] Surgical History (Updated 06/27/23 @ 08:58 by Pallavi Gonsalez MA) H/O colonoscopy (~02/2019) History of spinal fusion History of eye surgery Family History (Updated 06/27/23 @ 08:59 by Pallavi Gonsalez MA) Brother Colon cancer Social History Housing: House Alcohol intake: current Alcohol intake frequency: holidays/special occasions only Alcohol type: wine Patient Tobacco Use Status: Former Tobacco user e-Cigarette/Vaping Use: Never Used Second Hand Smoke Exposure: No Substance Use Type: Marijuana service: No Current occupational status: retired and disabled Current occupational exposures/hazards: No Cognitive needs: Yes (cane, walker, wheelchair) Hearing needs: No Vision needs: Yes (glasses) Review of Systems Const Denies weight gain and Denies weight loss ENT Reports no additional complaints, Denies dysphagia and Denies odynophagia Card Reports no additional complaints Resp Reports no additional complaints GI Denies abdominal pain, Denies belching, Denies melena, Denies bloating, Reports constipation, Denies dysphagia, Denies excessive flatus, Denies dyspepsia, Denies heartburn, Denies diarrhea, Denies loose stools, Denies nausea, Denies odynophagia and Denies vomiting Reports no additional complaints Musc Reports no additional complaints Neuro Reports no additional complaints Psych Reports no additional complaints Endo Reports no additional complaints Physical Exam Vital Signs: Last Vital Signs Pulse 82 06/27/23 08:55 BP 144/65 H 06/27/23 08:55 BMI result Body Mass Index 41.3 Const General: healthy appearing, no acute distress and well developed Nutritional Appearance: well nourished Orientation/consciousness: patient oriented x3 Resp Effort & Inspection: normal respiratory effort, able to speak in complete sentences, no tracheal deviation and symmetric chest movement Auscultation: clear to auscultation bilaterally Cardio Rate: regular rate GI Inspection: Yes normal to inspection and No distended Palpation (GI): Soft to palpation, not firm, nontender and No hepatosplenomegaly present Auscultation: normal bowel sounds General: Yes no CVA tenderness Back/Spine/Pelvis Back: no CVA tenderness Skin General skin exam: elasticity normal, turgor normal and dry skin Neuro General: patient oriented x3 Psych Appearance: grossly normal Mental Status: mental status grossly normal Assessment & Plan Assessment & Plan (1) GERD (gastroesophageal reflux disease): Code(s): K21.9 - Gastro-esophageal reflux disease without esophagitis Qualifiers: Esophagitis presence: esophagitis presence not specified Qualified Code(s): K21.9 - Gastro-esophageal reflux disease without esophagitis (2) Screening for colon cancer: Code(s): Z12.11 - Encounter for screening for malignant neoplasm of colon (3) Chronic idiopathic constipation: Code(s): K59.04 - Chronic idiopathic constipation Plan Patient will return in January to discuss colonoscopy. In the meantime patient will try to take Dulcolax tablets every evening to help him move his bowels. Patient will call the office if he will have any issues with the medication or if he will continue to be constipated. Patient was encouraged to increase fluid intake and activity to promote better bowel motility. He is agreeable to this plan and verbalizes understanding of instructions. He was given the opportunity to ask questions all questions answered. Thank you for allowing me to participate in his care Medications: New bisacodyl (Dulcolax (bisacodyl)) 10 mg (2 x 5 mg) PO BEDTIME 180 tabs 4RF Coding Level of Care Code New Pt Level 3 (31980) Diagnoses Gastroesophageal reflux disease, unspecified whether esophagitis present K21.9 Esophagitis presence: esophagitis presence not specified Screening for colon cancer Z12.11 Chronic idiopathic constipation K59.04 Time Spent (min) 40 Comment 30 minutes spent with patient and additional 10 minutes spent reviewing his records
[2023-06-27 08:55] VITALS: BP 144/65; PULSE 82; BMI 41.3
== END 2023-06-27 09:30 | disposition home or self-care (01) ==
PROVIDERS: PCP Family Medicine; Visit Provider Nurse Practitioner Family
DX: K21.9 Gastro-esophageal reflux disease without esophagitis (principal); Z12.11 Encounter for screening for malignant neoplasm of colon; K59.04 Chronic idiopathic constipation
CPT/HCPCS: 99203

== ENCOUNTER → 2023-06-27 08:52 | Outpatient (BNVA) | payer MEDICARE, SELFPAY | PROVIDERS: PCP Family Medicine; Visit Provider Nurse Practitioner Family | DX: K21.9 Gastro-esophageal reflux disease without esophagitis (principal); K59.04 Chronic idiopathic constipation | CPT/HCPCS: 99202 ==

== ENCOUNTER 2023-08-08 08:39 | Outpatient (AMB) | payer MEDICARE, SELFPAY ==
--- NOTE | 2023-08-08 08:57 | MHC.PC.OV ---
Vital Signs 08/08/23 08:59 Height 5 ft 9 in Weight 280 lb 8 oz BMI 41.4 BP 146/86 H Blood Pressure Location Rt brachial Position Sitting Respiration 14 Pulse 77 Pulse Source Pulse Oximeter Pulse Oximetry (%) 94 Oxygen Delivery Method Room Air Intake Visit Reasons: F/U HTN and microalbumin Intake Note: Patient is here to follow up on hypertension and microalbumin. Patient reports no concerns at this time. 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 Blood pressure today 146/86. He is on lisinopril-HCTZ 20-12.5mg daily. Had some microalbuminuria from labs drawn in April. No recent labs to review. He reports he has not gotten Wegovy yet. Weight unchanged since last checked in June. [facility] Medical History (Updated 08/08/23 @ 09:15 by Roberto Coulter) No pertinent past medical history Surgical History H/O colonoscopy (~02/2019) History of spinal fusion History of eye surgery Family History Brother Colon cancer Social History (Updated 08/08/23 @ 09:06 by Kaye Garcia CMA) Household Members: Other Housing: House Are you a primary health care manager to a significant other at home: No Do you presently have visiting nurse or other home services: No 75 years or older and lives alone: No Alcohol intake: current Alcohol intake frequency: holidays/special occasions only Alcohol type: wine Patient Tobacco Use Status: Former Tobacco user e-Cigarette/Vaping Use: Never Used Second Hand Smoke Exposure: No Substance Use Type: Marijuana Have you been hit, kicked, punched, or otherwise hurt by someone within the past year? If so, by whom?: No Do you feel safe in your current relationship?: No Current Relationship Is there a partner from a previous relationship who is making you feel unsafe now?: No Are you made to feel afraid or neglected: No service: No Current occupational status: retired and disabled Current occupational exposures/hazards: No Sexual orientation: Unable to collect Gender identity: Unable to collect Cognitive needs: Yes (cane, walker, wheelchair) Hearing needs: No Vision needs: Yes (glasses) Questionnaire Thrive Questionnaire Date Thrive assessed: 04/25/23 SHWETA-7 AMB Questionnaire SHWETA-7 Date SHWETA - 7 assessed: 04/25/23 Source: Developed by Drs. Federico Kwan, Raven Anderson, Arnulfo Cooley and colleagues, with an educational jacob from [employer]. Review of Systems Const Denies chills, Denies fatigue, Denies fever(s), Denies headache(s) and Denies weakness ENT Denies dizziness and Denies headache(s) Card Denies chest pain, Denies lightheadedness, Denies dyspnea and Denies other (Palpitations) Resp Denies cough, Denies dyspnea, Denies wheezing and Denies other ( shortness of breath) Musc Denies numbness and Denies tingling Neuro Denies dizziness, Denies headache(s), Denies numbness, Denies tingling, Denies paresthesias and Denies weakness Psych Denies anxiety and Denies depression Endo Denies fatigue Aller/Immun Denies wheezing Physical exam (Primary Care) Vital Signs: Last Vital Signs Pulse 77 08/08/23 08:59 Resp 14 08/08/23 08:59 BP 146/86 H 08/08/23 08:59 Pulse Ox 94 08/08/23 08:59 Oxygen Delivery Method Room Air 08/08/23 08:59 BMI result Body Mass Index 41.4 Tobacco/Smoking Status: Tobacco use Status Tobacco use date assessed 08/08/23 08/08/23 09:02 Patient Tobacco Use Status Former Tobacco user 08/08/23 09:06 e-Cigarette/Vaping Use Never Used 08/08/23 09:06 Thrive Assessment: Date of Thrive Assessment Date Thrive assessed 04/25/23 08/08/23 09:02 Const General: no acute distress and well developed Nutritional Appearance: well nourished Orientation/consciousness: patient oriented x3 HENMA Head: Yes normocephalic and Yes atraumatic Eyes General: appearance normal, both eyes and all related structures Pupils: Equal, round and reactive pupils present EOM: EOMs intact bilaterally Resp Effort & Inspection: normal respiratory effort Auscultation: clear to auscultation bilaterally Cardio Rate: regular rate Rhythm: regular rhythm Heart sounds: S1 normal heart sound present, S2 normal heart sound present, no gallops, no murmurs and no rubs Neuro General: patient oriented x3 and gait normal Cranial nerves: Yes Equal, round and reactive pupils present Psych Affect: normal affect Assessment and Plan Assessment & Plan (1) Hypertension: Code(s): I10 - Essential (primary) hypertension Plan: Blood?pressure?is?high.??Will?increase?hydrochlorothiazide?in?his?combo?pill. Goal?is?less?than?140/90 New?dose: ?Lisinopril-hydrochlorothiazide?20-25. (2) Microalbuminuria: Code(s): R80.9 - Proteinuria, unspecified Plan: Microalbumin?was?slightly?elevated?at?last?visit We?discussed?this?is?another?reason?to?work?at?better?blood?pressure?control. Will?follow (3) Morbid obesity with BMI of 40.0-44.9, adult: Code(s): E66.01 - Morbid (severe) obesity due to excess calories; Z68.41 - Body mass index [BMI] 40.0-44.9, adult Plan: Had?tried?prescribing?Wegovy. He?has?not?received?this?medication.??Asking?nurse?to?look?in?to?results?on?this. Coding Level of Care Code Est Pt Level 3 (63294) Diagnoses Hypertension I10 Microalbuminuria R80.9 Morbid obesity with BMI of 40.0-44.9, adult E66.01; Z68.41
[2023-08-08 08:59] VITALS: BP 146/86; PULSE 77; RESP 14; O2SAT 94; BMI 41.4
== END 2023-08-08 09:21 | disposition home or self-care (01) ==
PROVIDERS: PCP Family Medicine; Visit Provider Family Medicine
DX: I10 Essential (primary) hypertension (principal); R80.9 Proteinuria, unspecified; E66.01 Morbid (severe) obesity due to excess calories; Z68.41 Body mass index [BMI] 40.0-44.9, adult
CPT/HCPCS: 99213

== ENCOUNTER 2023-08-12 11:06 | Outpatient (AMB) | payer MEDICARE, SELFPAY ==
--- NOTE | 2023-08-12 11:11 | A.OFFVIS_ITS ---
Intake Intake Visit Reasons: PVR/US(set) Intake Note: Patient is Present for Follow Up Urology Medication: Sildenafil, Tamsulosin Antibiotic Allergies: None Blood Thinners: None PVR: 0 Allergies latex Allergy (Mild, Verified 08/08/23 09:02) rash meperidine [Demerol] Allergy (Unknown, Verified 08/08/23 09:02) hives meloxicam Adverse Reaction (Intermediate, Verified 08/08/23 09:02) Migraine bandages Allergy (Mild, Uncoded 08/08/23 09:02) itchy rash HPI HPI Comments History of Present Illness Details Aaron is a pleasant male. He is a patient of Dr. Davis. He seen for the following urologic conditions - erectile disorder - lower urinary tract symptoms PVR 100 cc Sildenafil 100 mg follow-up - good response - may go as high as 200 - regular limiting factor is headache Tamsulosin trial follow-up - good response - would like to continue Had to stop tadalafil medications due to heartburn - both daily low dose and on demand Erectile disorder Cannot maintain erection Has trouble reaching climax Minimal ejaculatory volume Subsequent secondary depression Baseline labs 01/11 T 386, 12/12 T 300 Fr 72 Failed daily tadalafil with heartburn Understands therapy directed towards obtaining and maintaining erection Further treatment may be required for climax PFSH Medical History (Updated 08/08/23 @ 09:15 by Roberto Coulter) No pertinent past medical history Surgical History H/O colonoscopy (~02/2019) History of spinal fusion History of eye surgery Family History Brother Colon cancer Social History (Updated 08/08/23 @ 09:06 by Kaye Garcia CMA) Household Members: Other Housing: House Are you a primary behavioral health care coordinator to a significant other at home: No Do you presently have visiting nurse or other home services: No 75 years or older and lives alone: No Alcohol intake: current Alcohol intake frequency: holidays/special occasions only Alcohol type: wine Patient Tobacco Use Status: Former Tobacco user e-Cigarette/Vaping Use: Never Used Second Hand Smoke Exposure: No Substance Use Type: Marijuana service: No Current occupational status: retired and disabled Current occupational exposures/hazards: No Sexual orientation: Unable to collect Gender identity: Unable to collect Cognitive needs: Yes (cane, walker, wheelchair) Hearing needs: No Vision needs: Yes (glasses) Review of Systems Const Denies chills and Denies fever(s) Card Reports no additional complaints and Denies syncope Resp Denies cough GI Denies abdominal pain and Denies heartburn Reports as per HPI and Denies change in libido Neuro Denies syncope Psych Denies change in libido Endo Denies change in libido Physical Exam Const General: cooperative, healthy appearing, comfortable and no acute distress Orientation/consciousness: patient oriented x3 HEENT Face and sinus: Yes normal facial exam Mouth: moist mucous membranes Neck Neck: Yes normal visual inspection, Yes full ROM and Yes trachea midline Chest Chest palpation & inspection: normal inspection of the chest Resp Effort & Inspection: normal respiratory effort, able to speak in complete sentences and no respiratory distress GI Inspection: Yes normal to inspection Back/Spine/Pelvis Cervical Spine: normal cervical lordosis Thoracic/Lumbar Spine: thoracic and lumbar spine normal to inspection Skin General skin exam: no rashes or lesions noted Neuro General: patient oriented x3, gait normal, tone normal and moves all extremities Extrem General: Yes normal to inspection and Yes capillary refill normal Office Procedures Post Void Residual Post Residual Void Post Void Residual (PVR): 0 [id number] Void Residual by ultrasound Assessment & Plan Assessment & Plan (1) Bladder outlet obstruction: Code(s): N32.0 - Bladder-neck obstruction (2) Erectile dysfunction: Code(s): N52.9 - Male erectile dysfunction, unspecified Plan Six-month follow-up tele Orders: Orders AMB Post Void Residual by ultrasound Today N32.0 - Bladder-neck obstruction Medications: Changed From tamsulosin 0.4 mg PO BEDTIME 30 caps 1RF N32.0 - Bladder-neck obstruction, N40.1 - Benign prostatic hyperplasia with lower urinary tract symptoms, R35.1 - Nocturia To tamsulosin 0.4 mg PO BEDTIME 90 days 90 caps 1RF N32.0 - Bladder-neck obstruction, N40.1 - Benign prostatic hyperplasia with lower urinary tract symptoms, R35.1 - Nocturia Refilled sildenafil administer 60 minutes before intended activity 100 mg PO ONCE 30 days PRN 30 tabs 3RF sexual activity N52.9 - Male erectile dysfunction, unspecified Patient Instructions: Imaging studies, laboratory and physical exam results were discussed and reviewed in detail. No major barriers to patient understanding were identified. An opportunity to ask questions regarding the treatment plan was provided. All questions were answered. The patient expressed understanding and agreement with the above treatment plan. The patient is aware they should contact our office by phone for worsening of their current condition or the appearance of new urologic symptoms. Compliance is encouraged with any medications and followup testing that is ordered. It is a privilege to participate in the urologic care of your patient. If you have any questions or concerns regarding treatment for the above conditions, or other urologic issues, please do not hesitate to contact me. The office telephone contact is [phone]. This note is constructed using voice recognition software. While every effort has been made to ensure accuracy hourly caregiver errors may have been included. Yours sincerely, Dr Tevin Murray MD, [facility] - Urology Providers of Expert, Compassionate Care for the Genitourinary System Coding Level of Care Code Est Pt Level 3 (73624) Diagnoses Bladder outlet obstruction N32.0 Erectile dysfunction N52.9 CPT Codes Post Residual Void - PVR CPT Code: 50092-[id number] Void Residual by ultrasound ([id number])
== END 2023-08-12 11:28 | disposition home or self-care (01) ==
PROVIDERS: PCP Family Medicine; Visit Provider Urology
DX: N32.0 Bladder-neck obstruction (principal); N52.9 Male erectile dysfunction, unspecified
CPT/HCPCS: 99213

== ENCOUNTER → 2023-08-12 11:06 | Outpatient (BNVA) | payer MEDICARE, SELFPAY | PROVIDERS: PCP Family Medicine; Visit Provider Urology | DX: N52.9 Male erectile dysfunction, unspecified (principal); N32.0 Bladder-neck obstruction; N40.1 Benign prostatic hyperplasia with lower urinary tract symptoms; R35.1 Nocturia | CPT/HCPCS: 51798; 99212 ==

== ENCOUNTER 2023-11-07 08:23 | Outpatient (AMB) | payer MEDICARE, SELFPAY ==
[2023-11-07 08:34] VITALS: BP 134/76; PULSE 79; O2SAT 97; BMI 40.2
--- NOTE | 2023-11-07 08:34 | MHC.PC.OV ---
Vital Signs 11/07/23 08:34 Height 5 ft 9 in Weight 272 lb BMI 40.2 BP 134/76 Blood Pressure Location Lt brachial Position Sitting Pulse 79 Pulse Source Pulse Oximeter Pulse Oximetry (%) 97 Oxygen Delivery Method Room Air Intake Visit Reasons: 3 month f/u Intake Note: Patient is here for follow up on hypertension and weight. Allergies latex Allergy (Mild, Verified 11/07/23 08:47) rash meperidine [Demerol] Allergy (Unknown, Verified 11/07/23 08:47) hives meloxicam Adverse Reaction (Intermediate, Verified 11/07/23 08:47) Migraine bandages Allergy (Mild, Uncoded 11/07/23 08:47) itchy rash Tobacco use date assessed: 11/07/23 Dental Screening Dental Screen Date: 11/07/23 Did you have a dental visit in the last 12 months?: Yes Did you have a dental problem in the last 6 months where you did not have access to dental care?: No Was dental information given to patient?: Patient has dentist HPI 3 month f/u HPI Details 63 y/o male presents to f/u hypertension and weight. Blood pressure today 134/76. He is on lisinopril-hydrochlorothiazide 20-25mg daily. Had lost about 8 lbs since last office visit. He notes he had been fasting as much as he can to lose weight. [facility] Medical History No pertinent past medical history Surgical History H/O colonoscopy (~02/2019) History of spinal fusion History of eye surgery Family History Brother Colon cancer Social History Household Members: Other Housing: House Are you a primary day care provider to a significant other at home: No Do you presently have visiting nurse or other home services: No Alcohol intake: current Alcohol intake frequency: holidays/special occasions only Alcohol type: wine Patient Tobacco Use Status: Former Tobacco user e-Cigarette/Vaping Use: Never Used Second Hand Smoke Exposure: No Substance Use Type: Marijuana service: No Current occupational status: retired and disabled Current occupational exposures/hazards: No Sexual orientation: Unable to collect Gender identity: Unable to collect Cognitive needs: Yes (cane, walker, wheelchair) Hearing needs: No Vision needs: Yes (glasses) Questionnaire Thrive Questionnaire Date Thrive assessed: 04/25/23 SHWETA-7 AMB Questionnaire SHWETA-7 Date SHWETA - 7 assessed: 04/25/23 Source: Developed by Drs. Federico Kwan, Raven Anderson, Arnulfo Cooley and colleagues, with an educational jacob from [employer]. Review of Systems Const Denies chills, Denies fatigue, Denies fever(s), Denies headache(s) and Denies weakness ENT Denies dizziness and Denies headache(s) Card Denies chest pain, Denies lightheadedness, Denies dyspnea and Denies other (Palpitations) Resp Denies cough, Denies dyspnea, Denies wheezing and Denies other ( shortness of breath) Musc Denies numbness and Denies tingling Neuro Denies dizziness, Denies headache(s), Denies numbness, Denies tingling, Denies paresthesias and Denies weakness Psych Denies anxiety and Denies depression Endo Denies fatigue Aller/Immun Denies wheezing Physical exam (Primary Care) Vital Signs: Last Vital Signs Pulse 79 11/07/23 08:34 BP 134/76 11/07/23 08:34 Pulse Ox 97 11/07/23 08:34 Oxygen Delivery Method Room Air 11/07/23 08:34 BMI result Body Mass Index 40.2 Tobacco/Smoking Status: Tobacco use Status Tobacco use date assessed 11/07/23 11/07/23 08:48 Patient Tobacco Use Status Former Tobacco user 11/07/23 08:43 e-Cigarette/Vaping Use Never Used 11/07/23 08:43 Thrive Assessment: Date of Thrive Assessment Date Thrive assessed 04/25/23 11/07/23 08:43 Const General: no acute distress and well developed Nutritional Appearance: well nourished and obese morbidly obese Orientation/consciousness: patient oriented x3 HENMT Head: Yes normocephalic and Yes atraumatic Eyes General: appearance normal, both eyes and all related structures Pupils: Equal, round and reactive pupils present EOM: EOMs intact bilaterally Resp Effort & Inspection: normal respiratory effort Auscultation: clear to auscultation bilaterally Cardio Rate: regular rate Rhythm: regular rhythm Heart sounds: S1 normal heart sound present, S2 normal heart sound present, no gallops, no murmurs and no rubs Neuro General: patient oriented x3 and gait normal Cranial nerves: Yes Equal, round and reactive pupils present Psych Affect: normal affect Assessment and Plan Assessment & Plan (1) Hypertension: Code(s): I10 - Essential (primary) hypertension Plan: Blood?pressure?is?improved?after?adjusting?his?lisinopril-hydrochlorothiazide He?is?also?lost?about?8?lb Continue?current?medication?regimen (2) Morbid obesity with BMI of 40.0-44.9, adult: Code(s): E66.01 - Morbid (severe) obesity due to excess calories; Z68.41 - Body mass index [BMI] 40.0-44.9, adult Plan: Patient?continues?to?work?at?weight?loss He?is?doing?some?intermittent?fasting?and?has?lost?about?8?lb Encouraged?healthy?nutrition Continue?weight?loss Coding Level of Care Code Est Pt Level 3 (48496) Diagnoses Hypertension I10 Morbid obesity with BMI of 40.0-44.9, adult E66.01; Z68.41
== END 2023-11-07 09:02 | disposition home or self-care (01) ==
PROVIDERS: PCP Family Medicine; Visit Provider Family Medicine
DX: I10 Essential (primary) hypertension (principal); E66.01 Morbid (severe) obesity due to excess calories; Z68.41 Body mass index [BMI] 40.0-44.9, adult
CPT/HCPCS: 99213

== ENCOUNTER 2023-11-07 08:34 | Outpatient (REF) | payer MEDICARE, SELFPAY ==
[2023-11-07 11:45] LABS: Alanine Aminotransferase 35 U/L (0-40); Albumin Level 4.3 g/dL (3.5-5.0); Alkaline Phosphatase 135 U/L (39-117); Anion Gap 12 (12-20); Aspartate Amino Transferase 39 U/L (5-37); Bilirubin Total 0.3 mg/dL (0.0-1.0); Blood Urea Nitrogen 22 mg/dL (9-16); Calcium 9.3 mg/dL (8.4-10.2); Carbon Dioxide 28 mmol/L (22-29); Chloride 102 mmol/L (96-108); Cholesterol 156 mg/dL (<200); Estimated Glomerular Filt Rate > 60; Glucose Fasting 119 mg/dL (60-99); HDL Cholesterol 36 mg/dL (>40); LDL Cholesterol Calculated 80 mg/dL (<100); Potassium 3.4 mmol/L (3.3-5.1); Sodium 139 mmol/L (135-145); Triglycerides 203 mg/dL (<150)
[2023-11-07 12:12] LABS: Creatinine Urine 132.66 mg/dL; Microalbum/Creatinine Ratio Ur 48.9 ug/mg cr (<30)
== END 2023-11-07 08:35 | disposition home or self-care (01) ==
LOC: HO.WFDLDS 08:34
PROVIDERS: Visit Provider Family Medicine
DX: Z00.00 Encounter for general adult medical examination without abnormal findings (principal); R80.9 Proteinuria, unspecified; I10 Essential (primary) hypertension; R74.8 Abnormal levels of other serum enzymes; E78.6 Lipoprotein deficiency
CPT/HCPCS: 36415; 80053; 80061; 82043; 82570

== ENCOUNTER 2024-02-06 08:55 | Outpatient (AMB) | payer MEDICARE, SELFPAY ==
--- NOTE | 2024-02-06 09:08 | A.OFFVIS_ITS ---
Vital Signs 02/06/24 09:09 Height 5 ft 9 in Weight 273 lb 5.971 oz BMI 40.4 BP 136/82 Blood Pressure Location Lt brachial Position Sitting Pulse 82 Pulse Source Pulse Oximeter Pulse Oximetry (%) 93 Oxygen Delivery Method Room Air Intake Visit Reasons: discuss prep per cher Intake Note: Aaron presents in office today for a scheduled FUV to discuss procedure prep. CC: Pt reports that they are still experiencing constipation. Pt had been taking the prescribed medication for constipation which works but is slightly too effective. Pt has been taking the medication PRN which seems to work OK. Pt would like to discuss other alternatives if possible. Access Specialist Required: No Allergies latex Allergy (Mild, Verified 02/06/24 09:09) rash meperidine [Demerol] Allergy (Unknown, Verified 02/06/24 09:09) hives meloxicam Adverse Reaction (Intermediate, Verified 02/06/24 09:09) Migraine bandages Allergy (Mild, Uncoded 11/07/23 08:47) itchy rash HPI HPI discuss prep per cher: Details: LAST VISIT: GERD (gastroesophageal reflux disease) Screening for colon cancer Chronic idiopathic constipation Plan Patient will return in January to discuss colonoscopy. In the meantime patient will try to take Dulcolax tablets every evening to help him move his bowels. Patient will call the office if he will have any issues with the medication or if he will continue to be constipated. Patient was encouraged to increase fluid intake and activity to promote better bowel motility. He is agreeable to this plan and verbalizes understanding of instructions. He was given the opportunity to ask questions all questions answered. ? Thank you for allowing me to participate in his care Medications New bisacodyl (Dulcolax (bisacodyl)) 10 mg (2 x 5 mg) PO BEDTIME 180 tabs 4RF TODAY'S VISIT: Patient is here today for follow-up and to discuss going for colonoscopy. Patient reports that he is taking Dulcolax 2 tablets every other day as it makes him have diarrhea if he takes it daily. Patient states that he tried taking 1 Dulcolax tablets and it was not helpful. Patient denies melena, hematochezia, unintentional weight loss or ribbon like stools. Patient denies any dyspepsia, reports dysphagia. Patient states that he has been having trouble swallowing mainly small things like medications. Patient feels like he has to eat something in the order for that pill to go down. Patient denies choking episodes. Denies any issues with anesthesia. Colonoscopy scheduled for March. Unable to add upper endoscopy as schedule is full. Patient will be sent for barium swallow. No trouble swallowing liquids and no trouble swallowing large solid pieces. [facility] Medical History No pertinent past medical history Surgical History H/O colonoscopy (~02/2019) History of spinal fusion History of eye surgery Family History Brother Colon cancer Social History Household Members: Other Housing: House Are you a primary neonatal intensive care unit nurse to a significant other at home: No Do you presently have visiting nurse or other home services: No Alcohol intake: current Alcohol intake frequency: holidays/special occasions only Alcohol type: wine Patient Tobacco Use Status: Former Tobacco user e-Cigarette/Vaping Use: Never Used Second Hand Smoke Exposure: No Substance Use Type: Marijuana service: No Current occupational status: retired and disabled Current occupational exposures/hazards: No Sexual orientation: Unable to collect Gender identity: Unable to collect Cognitive needs: Yes (cane, walker, wheelchair) Hearing needs: No Vision needs: Yes (glasses) Review of Systems Const Denies weight gain and Denies weight loss Card Reports no additional complaints Resp Reports no additional complaints GI Denies abdominal pain, Denies belching, Denies melena, Denies bloating, Reports constipation, Denies excessive flatus, Denies dyspepsia, Denies heartburn, Denies diarrhea, Denies loose stools, Denies nausea and Denies vomiting Reports no additional complaints Musc Reports no additional complaints Neuro Reports no additional complaints Psych Reports no additional complaints Endo Reports no additional complaints Physical Exam Vital Signs: Last Vital Signs Pulse 82 02/06/24 09:09 BP 136/82 02/06/24 09:09 Pulse Ox 93 02/06/24 09:09 Oxygen Delivery Method Room Air 02/06/24 09:09 BMI result Body Mass Index 40.4 Const Other: Ambulating with cane General: healthy appearing and no acute distress Nutritional Appearance: obese Orientation/consciousness: patient oriented x3 Resp Effort & Inspection: normal respiratory effort, able to speak in complete sentences, no tracheal deviation and symmetric chest movement Auscultation: clear to auscultation bilaterally Cardio Rate: regular rate GI Inspection: Yes normal to inspection, No distended and Yes obesity Palpation (GI): Soft to palpation, not firm, nontender and No hepatosplenomegaly present Auscultation: normal bowel sounds General: Yes no CVA tenderness Back/Spine/Pelvis Back: no CVA tenderness Skin General skin exam: elasticity normal, turgor normal and dry skin Neuro General: patient oriented x3 Psych Appearance: grossly normal Mental Status: mental status grossly normal Assessment & Plan Assessment & Plan (1) GERD (gastroesophageal reflux disease): Code(s): K21.9 - Gastro-esophageal reflux disease without esophagitis Category: Medical Qualifiers: Esophagitis presence: esophagitis presence not specified Qualified Code(s): K21.9 - Gastro-esophageal reflux disease without esophagitis (2) Screening for colon cancer: Code(s): Z12.11 - Encounter for screening for malignant neoplasm of colon Category: Medical (3) Dysphagia: Code(s): R13.10 - Dysphagia, unspecified Qualifiers: Dysphagia type: oropharyngeal phase Qualified Code(s): R13.12 - Dysphagia, oropharyngeal phase (4) Constipation: Code(s): K59.00 - Constipation, unspecified Qualifiers: Constipation type: slow transit constipation Qualified Code(s): K59.01 - Slow transit constipation Plan Patient will continue taking Dulcolax on as needed basis. Patient was instruct ed to try to take Dulcolax few days before procedure to help him empty better. MiraLax prep prep discussed with patient. What to expect before during and after procedure discussed with him as well. Patient will be sent for barium swallow. Patient reports that he has had trach when he was a child. Symptoms on and off of dysphagia in the past few years. Patient denies pain or any reflux at this time. Patient will follow-up in the office after the procedure, sooner on as needed basis. He is agreeable to this plan and verbalizes understanding of instructions. He was given the opportunity to ask questions and all questions answered. Thank you for allowing me to participate in his care Orders: Orders FL barium swallow Today R13.10 - Dysphagia, unspecified Medications: New polyethylene glycol 3350 (Miralax) As directed by gastro[facility]ology department at [facility] 238 grams PO ONCE 238 grams 0RF Z12.11 - Encounter for screening for malignant neoplasm of colon Refilled bisacodyl (Dulcolax (bisacodyl)) 10 mg (2 x 5 mg) PO BEDTIME 180 tabs 4RF Discontinued semaglutide (weight loss) (Wegovy) administer weeks 1 through 4 of therapy Discontinued Reason: Insurance Denied 0.25 mg (0.5 mL) subcut QWEEK 28 days 2 mL 2RF E66.9 - Obesity, unspecified, G89.29 - Other chronic pain, M54.9 - Dorsalgia, unspecified Coding Level of Care Code Est Pt Level 3 (21206) Diagnoses Gastroesophageal reflux disease, unspecified whether esophagitis present K21.9 Esophagitis presence: esophagitis presence not specified Screening for colon cancer Z12.11 Oropharyngeal dysphagia R13.12 Dysphagia type: oropharyngeal phase Slow transit constipation K59.01 Constipation type: slow transit constipation Time Spent (min) 30 Comment 20 minutes spent with patient and additional 10 minutes spent reviewing his records
[2024-02-06 09:09] VITALS: BP 136/82; PULSE 82; O2SAT 93; BMI 40.4
== END 2024-02-06 10:22 | disposition home or self-care (01) ==
PROVIDERS: PCP Family Medicine; Visit Provider Nurse Practitioner Family
DX: K21.9 Gastro-esophageal reflux disease without esophagitis (principal); Z12.11 Encounter for screening for malignant neoplasm of colon; R13.12 Dysphagia, oropharyngeal phase; K59.01 Slow transit constipation
CPT/HCPCS: 99213

== ENCOUNTER → 2024-02-06 08:55 | Outpatient (BNVA) | payer MEDICARE, SELFPAY | PROVIDERS: PCP Family Medicine; Visit Provider Nurse Practitioner Family | DX: Z01.818 Encounter for other preprocedural examination (principal); K21.9 Gastro-esophageal reflux disease without esophagitis; R13.12 Dysphagia, oropharyngeal phase; K59.01 Slow transit constipation; E66.9 Obesity, unspecified; M54.9 Dorsalgia, unspecified; G89.29 Other chronic pain; Z68.41 Body mass index [BMI] 40.0-44.9, adult | CPT/HCPCS: 99212 ==

== ENCOUNTER 2024-02-10 08:25 | Outpatient (AMB) | payer MEDICARE, SELFPAY ==
--- NOTE | 2024-02-10 08:34 | A.OFFPC_ITS ---
Vital Signs 02/10/24 08:37 02/10/24 08:42 Height 5 ft 9 in Weight 272 lb 8 oz BMI 40.2 BP 96/60 118/61 Blood Pressure Location Rt brachial Lt brachial Position Sitting Sitting Respiration 12 Pulse 79 Pulse Source Pulse Oximeter Temp 98.0 F Temp Source Tympanic Pulse Oximetry (%) 95 Oxygen Delivery Method Room Air Intake Visit Reasons: f/u hypertension, weight Intake Note: follow up for HTN and weight Allergies latex Allergy (Mild, Verified 02/10/24 08:35) rash meperidine [Demerol] Allergy (Unknown, Verified 02/10/24 08:35) hives meloxicam Adverse Reaction (Intermediate, Verified 02/10/24 08:35) Migraine bandages Allergy (Mild, Uncoded 11/07/23 08:47) itchy rash Medication List - Last Reconciled 02/10/24 by Santy Davis MD albuterol sulfate 90 mcg/actuation 2 puffs PO Q4-6H PRN bisacodyl (Dulcolax (bisacodyl)) 10 mg (2 x 5 mg) PO BEDTIME hospital bed (bed,hospital) Electric adjustable bed, Daily As directed, 999 days lisinopril-hydrochlorothiazide 20-25 mg 1 tab PO DAILY 30 days montelukast 10 mg PO BEDTIME 90 days multivitamin (One Daily Multivitamin tablet) 1 tab PO DAILY polyethylene glycol 3350 (Miralax) 238 grams PO ONCE pregabalin (Lyrica) 1 cap (100mg) AM and 2 caps (200mg) PM orally 2 times a day; 30 days sildenafil 100 mg PO ONCE PRN 30 days tamsulosin 0.4 mg PO BEDTIME 90 days Tobacco use date assessed: 11/07/23 Dental Screening Dental Screen Date: 11/07/23 HPI f/u hypertension, weight HPI Details 63 y/o male presents to f/u hypertension , weight loss. Blood pressure today 118/61, 79p. He is on lisinopril-hydrochlorothiazide 20-25mg daily. Denies any problem his meds. Had been unable to get Wegovy for weight loss. HPI Comments History of Present Illness Details Documentation assistance for Santy Davis MD, was provided by Roberto Coulter,? Fastener Technologist on 02/10/2024 at 8:49 AM ESTDavid Huynh, Dr. Davis, have read, observed, and verified documentation. [facility] Medical History No pertinent past medical history Surgical History H/O colonoscopy (~02/2019) History of spinal fusion History of eye surgery Family History Brother Colon cancer Social History Household Members: Other Housing: House Are you a primary director of healthcare systems to a significant other at home: No Do you presently have visiting nurse or other home services: No 75 years or older and lives alone: No Alcohol intake: current Alcohol intake frequency: holidays/special occasions only Alcohol type: wine Patient Tobacco Use Status: Former Tobacco user e-Cigarette/Vaping Use: Never Used Second Hand Smoke Exposure: No Substance Use Type: Marijuana service: No Current occupational status: retired and disabled Current occupational exposures/hazards: No Sexual orientation: Unable to collect Gender identity: Unable to collect Cognitive needs: Yes (cane, walker, wheelchair) Hearing needs: No Vision needs: Yes (glasses) Questionnaire Thrive Questionnaire Date Thrive assessed: 04/25/23 SHWETA-7 AMB Questionnaire SHWETA-7 Date SHWETA - 7 assessed: 04/25/23 Source: Developed by Drs. Federico Kwan, Raven Anderson, Arnulfo Cooley and colleagues, with an educational jacob from [employer]. Review of Systems Const Denies chills, Denies fatigue, Denies fever(s), Denies headache(s) and Denies weakness ENT Denies dizziness and Denies headache(s) Card Denies dyspnea Resp Denies cough, Denies dyspnea, Denies wheezing and Denies other (shortness of breath) Musc Denies numbness and Denies tingling Neuro Denies dizziness, Denies headache(s), Denies numbness, Denies tingling and Denies weakness Psych Denies anxiety and Denies depression Endo Denies fatigue Aller/Immun Denies wheezing Physical exam (Primary Care) Vital Signs: Last Vital Signs Temp 98.0 F 02/10/24 08:37 Pulse 79 02/10/24 08:37 Resp 12 02/10/24 08:37 BP 118/61 02/10/24 08:42 Pulse Ox 95 02/10/24 08:37 Oxygen Delivery Method Room Air 02/10/24 08:37 BMI result Body Mass Index 40.2 Tobacco/Smoking Status: Tobacco use Status Tobacco use date assessed 11/07/23 02/10/24 08:42 Patient Tobacco Use Status Former Tobacco user 02/10/24 08:42 e-Cigarette/Vaping Use Never Used 02/10/24 08:42 Thrive Assessment: Date of Thrive Assessment Date Thrive assessed 04/25/23 02/10/24 08:42 Const General: well developed; No acute distress Nutritional Appearance: well nourished and obese morbidly obese Orientation/consciousness: patient oriented x3 HENMT Head: Yes normocephalic and Yes atraumatic Eyes General: appearance normal, both eyes and all related structures Pupils: Equal, round and reactive pupils present EOM: EOMs intact bilaterally Resp Effort & Inspection: normal respiratory effort Auscultation: clear to auscultation bilaterally Cardio Rate: regular rate Rhythm: regular rhythm Heart sounds: S1 normal heart sound present, S2 normal heart sound present, no gallops, no murmurs and no rubs Neuro General: patient oriented x3 and gait normal Cranial nerves: Yes Equal, round and reactive pupils present Psych Affect: normal affect Assessment and Plan Assessment & Plan (1) Hypertension: Code(s): I10 - Essential (primary) hypertension Plan: Blood?pressure?is?controlled.??Goal?is?less?than?140/90 Continue?current?medication (2) Morbid obesity with BMI of 40.0-44.9, adult: Code(s): E66.01 - Morbid (severe) obesity due to excess calories; Z68.41 - Body mass index [BMI] 40.0-44.9, adult Plan: Patient?did?not?qualify?for?semaglutide. Encouraged?decreasing?portion?sizes?and?exercise?as?tolerated. Orders: Orders Microalbumin, Random (w Creat) Today I10 - Essential (primary) hypertension Comprehensive [place]. Panel Fast Today Z00.00 - Encounter for general adult medical examination without abnormal findings Complete Blood Count Auto Diff Today Z00.00 - Encounter for general adult medical examination without abnormal findings Lipid Panel Today Z00.00 - Encounter for general adult medical examination with out abnormal findings Prostate Specific Antigen Scr Today Z12.5 - Encounter for screening for malignant neoplasm of prostate TSH reflex Free T4 Today Z00.00 - Encounter for general adult medical examination without abnormal findings UA and rflx microscopic Today Z00.00 - Encounter for general adult medical examination without abnormal findings Coding Level of Care Code Est Pt Level 3 (49475) Diagnoses Hypertension I10 Morbid obesity with BMI of 40.0-44.9, adult E66.01; Z68.41
[2024-02-10 08:37] VITALS: BP 96/60; PULSE 79; RESP 12; TEMP 36.7; O2SAT 95; BMI 40.2
[2024-02-10 08:42] VITALS: BP 118/61
== END 2024-02-10 11:20 | disposition home or self-care (01) ==
PROVIDERS: PCP Family Medicine; Visit Provider Family Medicine
DX: I10 Essential (primary) hypertension (principal); E66.01 Morbid (severe) obesity due to excess calories; Z68.41 Body mass index [BMI] 40.0-44.9, adult

== ENCOUNTER → 2024-02-10 08:25 | Outpatient (BNVA) | payer MEDICARE, SELFPAY | PROVIDERS: PCP Family Medicine; Visit Provider Family Medicine | DX: I10 Essential (primary) hypertension (principal); E66.01 Morbid (severe) obesity due to excess calories; Z68.41 Body mass index [BMI] 40.0-44.9, adult | CPT/HCPCS: 99212 ==

== ENCOUNTER 2024-04-30 08:39 | Outpatient (AMB) | payer MEDICARE, SELFPAY ==
--- NOTE | 2024-04-30 09:02 | A.OFFPC_ITS ---
Vital Signs 04/30/24 09:10 Height 5 ft 9 in Weight 279 lb BMI 41.2 BP 110/70 Blood Pressure Location Lt brachial Respiration 14 Pulse 67 Pulse Source Pulse Oximeter Pulse Oximetry (%) 95 Oxygen Delivery Method Room Air Intake Visit Reasons: Annual Physical - see comments Intake Note: PE Allergies latex Allergy (Mild, Verified 04/30/24 09:05) rash meperidine [Demerol] Allergy (Unknown, Verified 04/30/24 09:05) hives meloxicam Adverse Reaction (Intermediate, Verified 04/30/24 09:05) Migraine bandages Allergy (Mild, Uncoded 11/07/23 08:47) itchy rash Medication List - Last Reconciled 04/30/24 by Santy Davis MD albuterol sulfate 90 mcg/actuation 2 puffs PO Q4-6H PRN bisacodyl (Dulcolax (bisacodyl)) 10 mg (2 x 5 mg) PO BEDTIME hospital bed (bed,hospital) Electric adjustable bed, Daily As directed, 999 days lisinopril-hydrochlorothiazide 20-25 mg 1 tab PO DAILY 30 days montelukast 10 mg PO BEDTIME 90 days multivitamin (One Daily Multivitamin tablet) 1 tab PO DAILY polyethylene glycol 3350 (Miralax) 238 grams PO ONCE pregabalin (Lyrica) 1 cap (100mg) AM and 2 caps (200mg) PM orally 2 times a day; 30 days sildenafil 100 mg PO ONCE PRN 30 days tamsulosin 0.4 mg PO BEDTIME 90 days Tobacco use date assessed: 04/30/24 Fall risk assessment: 2 + Falls in past year Last assessed Fall Risk: 04/30/24 Dental Screening Dental Screen Date: 04/30/24 Did you have a dental visit in the last 12 months?: Yes Did you have a dental problem in the last 6 months where you did not have access to dental care?: No Was dental information given to patient?: Patient has dentist HPI Annual Physical - see comments HPI Details 64 y/o male presents for a CPE with f/u labs and health maintenance. No recent CPE-labs to review. Blood sugar elevated at last check. A1c 5.5%. Notes back pain has increased. Has been taking Lyrica at night. Does not take anything during the day. He notes he has a colonoscopy scheduled. [facility] Medical History No pertinent past medical history Surgical History H/O colonoscopy (~02/2019) History of spinal fusion History of eye surgery Family History Brother Colon cancer Social History Household Members: Other Housing: House Are you a primary manager care management to a significant other at home: No Do you presently have visiting nurse or other home services: No 75 years or older and lives alone: No Alcohol intake: current Alcohol intake frequency: holidays/special occasions only Alcohol type: wine Patient Tobacco Use Status: Former Tobacco user e-Cigarette/Vaping Use: Never Used Second Hand Smoke Exposure: No Substance Use Type: Marijuana service: No Current occupational status: retired and disabled Current occupational exposures/hazards: No Sexual orientation: Unable to collect Gender identity: Unable to collect Cognitive needs: Yes (cane, walker, wheelchair) Hearing needs: No Vision needs: Yes (glasses) Questionnaire PHQ-9 Over the last 2 weeks, how often have you been bothered by any of the following problems? 1. Little interest or pleasure in doing things: several days 2. Feeling down, depressed, or hopeless: not at all 3. Trouble falling or staying asleep, or sleeping too much: several days 4. Feeling tired or having little energy: several days 5. Poor appetite or overeating: several days 6. Feeling bad about yourself - or that you are a failure or have let yourself or your family down: not at all 7. Trouble concentrating on things, such as reading the newspaper or watching television: several days 8. Moving or speaking so slowly that other people could have noticed. Or the opposite - being so fidgety or restless that you have been moving around a lot more than usual: not at all 9. Thoughts that you would be better off or of hurting yourself in some way: not at all Total score: 5 Depression Screening Interpretation: Positive Depression Screening Done: Yes 95172 - PHQ-9 Billing: Yes Source: Developed by Drs. Federico Kwan, Raven Anderson, Arnulfo Cooley and colleagues, with an educational jacob from [employer] Thrive Questionnaire Date Thrive assessed: 04/30/24 I am a: Patient What is your living situation today?: I have a steady place to live Within the past 12 months, did the food you bought not last and you didn't have the money to get more?: Never true Within the past 12 months, did you worry whether your food would run out before you got money to buy more?: Never true Do you have trouble paying for medicines?: No Do you have trouble getting transportation to medical appointments?: No Do you have trouble paying your heating and electricity bill?: No Do you have trouble taking care of your child, family member or friend?: No Do you have trouble with day-to-day activities such as bathing, preparing meals, shopping, managing finances, etc.?: Yes Are you currently unemployed and looking for a job?: No Are you interested in more education?: No Please select the resources that you would like help with: None Currently or been in a relationship where the following occur: No concerns reported THRIVE Score: 0 AUDIT C Alcohol Use Questionnaire (AUDIT-C) 1. How often do you have a drink containing alcohol?: Monthly or less 2. How many drinks containing alcohol do you have on a typical day when you are drinking?: 1 or 2 3. How often do you have six or more drinks on one occasion?: Never Total Score: 1 SHWETA-7 AMB Questionnaire SHWETA-7 Date SHWETA - 7 assessed: 04/30/24 Feeling nervous, anxious, or on edge: 2 = More than half the days Not being able to stop or control worryin = More than half the days Worrying too much about different things: 1 = Several days Trouble relaxin = Several days Being so restless that it is hard to sit still: 1 = Several days Becoming easily annoyed or irritable: 1 = Several days Feeling afraid as if something awful might happen: 0 = Not at all Total SHWETA-7 score (0-4 normal; 5-9 mild; 10-14 moderate; 15-21 severe): 8 Source: Developed by Raven HernandezArnulfo and colleagues, with an educational jacob from [employer] SHWETA-7 Assessment Billing SHWETA-7 Assessment Tool: SHWETA-7 Assessment 53435 ACT Questionnaire In the past 4 weeks, how much of the time did your asthma keep you from getting as much done at work, school or at home?: None of the time During the past 4 weeks, how often have you had shortness of breath?: Not at all During the past 4 weeks, how often did your asthma symptoms wake you up at night or earlier than usual in the morning?: Once or twice per week During the past 4 weeks, how often have you had to use your rescue inhaler or nebulizer medication?: 2-3 times a week How would you rate your asthma control during the past 4 weeks?: Well controlled Score: 21 Review of Systems Const Denies chills, Denies fatigue, Denies fever(s), Denies headache(s) and Denies weakness Eyes Denies change in vision ENT Denies dizziness, Denies headache(s), Denies hearing loss, Denies nasal congestion, Denies sinus pain, Denies sinus pressure and Denies sore throat Card Denies chest pain, Denies lightheadedness, Denies dyspnea and Denies other (palpitations) Resp Denies cough, Denies dyspnea and Denies wheezing GI Denies abdominal pain, Denies melena, Denies hematochezia, Denies change in bowel habits, Denies dyspepsia and Denies nausea Denies hematuria and Denies dysuria Musc Denies abnormal gait, Denies myalgias, Denies arthralgias, Denies numbness and Denies tingling Skin/Breast Denies rash, Denies unusual bruising and Denies wounds Neuro Denies abnormal gait, Denies dizziness, Denies headache(s), Denies memory loss, Denies numbness, Denies Sensory deficit (Neuro), Denies tingling and Denies weakness Psych Denies anxiety, Denies depression and Denies memory loss Endo Denies cold intolerance, Denies fatigue, Denies heat intolerance, Denies polydipsia and Denies polyuria Rudy/Lymph Denies easy bleeding and Denies easy bruising Aller/Immun Denies wheezing Physical exam (Primary Care) Vital Signs: Last Vital Signs Pulse 67 04/30/24 09:10 Resp 14 04/30/24 09:10 BP 110/70 04/30/24 09:10 Pulse Ox 95 04/30/24 09:10 Oxygen Delivery Method Room Air 04/30/24 09:10 BMI result Body Mass Index 41.2 Tobacco/Smoking Status: Tobacco use Status Tobacco use date assessed 04/30/24 04/30/24 09:14 Patient Tobacco Use Status Former Tobacco user 04/30/24 09:04 e-Cigarette/Vaping Use Never Used 04/30/24 09:04 PHQ-9: PHQ-9 Score PHQ-9: Total score 5 04/30/24 09:34 Depression Screening Interpretation: Positive Thrive Assessment: Date of Thrive Assessment Date Thrive assessed 04/30/24 04/30/24 09:14 Currently or been in a relationship where the following occur: No concerns reported Const General: no acute distress, well developed, alert and awake Nutritional Appearance: well nourished Orientation/consciousness: patient oriented x3 HENMT Head: Yes normocephalic and Yes atraumatic Ears: hearing grossly normal bilaterally and TM's normal bilaterally General nose exam: Normal external nose present and Normal nares present Mouth: Normal oral and palatal mucosa present and moist mucous membranes Teeth and gingiva: dentition normal Throat: Yes posterior oropharynx normal Eyes General: appearance normal, both eyes and all related structures Pupils: Equal, round and reactive pupils present and Pupil accommodation reflex normal EOM: EOMs intact bilaterally Neck Neck: Yes normal visual inspection, Yes no lymphadenopathy and Yes trachea midline Thyroid: Thyroid normal Carotids: no bruits Lymphatic: no lymphadenopathy noted Chest Chest palpation & inspection: normal inspection of the chest Resp Effort & Inspection: normal respiratory effort Auscultation: clear to auscultation bilaterally Cardio Rate: regular rate Rhythm: regular rhythm Heart sounds: S1 normal heart sound present, S2 normal heart sound present, no gallops, no murmurs and no rubs Bruits: no abdominal aortic bruits and no carotid bruits GI Palpation (GI): No Abdominal aortic bruit present, Soft to palpation, nontender, No hepatosplenomegaly present and No Rebound tenderness present Auscultation: normal bowel sounds General: Yes no CVA tenderness Back/Spine/Pelvis Back: no CVA tenderness Cervical Spine: cervical ROM normal and No Cervical spine tenderness Thoracic/Lumbar Spine: thoraco-lumbar ROM normal, No pain with thoraco-lumbar ROM, No thoracic spinal tenderness and No lumbar spinal tenderness Skin Lesions: no lesions Rashes: no rashes Trauma: no lacerations or abrasions Wounds: no wounds Nails: normal Neuro General: patient oriented x3 Cranial nerves: Yes Equal, round and reactive pupils present Cognition (Neuro): normal cognition Gait exam (Neuro): Normal gait present Motor exam (neuro): 5/5 motor strength present throughout Sensory Exam: No Sensory deficit (Neuro) Deep tendon reflexes (DTR's): Right patellar reflex intensity grade: 2+ and Left patellar reflex intensity grade: 2+ Extrem General: Yes normal to inspection and No edema Psych Appearance: grossly normal Affect: normal affect Attitude: cooperative Thought process: Normal thought process present Coding Level of Care Code Est Pt Level 3 (21116) Est Pt Prev Care 40-64y(03482) Diagnoses Adult general medical exam Z00.00 Elevated fasting glucose R73.01 Hypertension I10 Asthma J45.909 Seasonal allergies J30.2 Chronic back pain M54.9; G89.29 Morbid obesity with BMI of 40.0-44.9, adult E66.01; Z68.41 Screening for colon cancer Z12.11 Screening for prostate cancer Z12.5 Additional Codes SHWETA-7 Assessment Billing - SHWETA-7 Assessment Tool: SHWETA-7 Assessment 49806 ([id number]) PHQ-9 - 90173 - PHQ-9 Billing: Yes ([id number]) Assessment & Plan Assessment & Plan (1) Adult general medical exam: Code(s): Z00.00 - Encounter for general adult medical examination without abnormal findings Category: Medical Plan: 64-year-old?male?presents?for?complete?physical?exam Encouraged?healthy?diet?with?lifestyle?and?plenty?of?exercise (2) Elevated fasting glucose: Code(s): R73.01 - Impaired fasting glucose Category: Medical Plan: A1c?is?5.5%.??Top?normal?range Will?continue?to?monitor (3) Hypertension: Code(s): I10 - Essential (primary) hypertension Category: Medical Plan: Blood?pressure?is?well?controlled.??Goal?is?less?than?140/90 Continue?current?medications (4) Asthma: Code(s): J45.909 - Unspecified asthma, uncomplicated Category: Medical Plan: Patient?says?he?has?been?using?his?inhaler?more?frequently.??He?is?also?taking Singulair?daily. Will?have?him?try?a?controller?medication.??Sent?a?script?for?Pulmicort Continue?using?albuterol?when?you?have?have?symptoms Continue?Singulair. Consider?daytime?antihistamine (5) Seasonal allergies: Code(s): J30.2 - Other seasonal allergic rhinitis Category: Medical Plan: As?above,?consider?daytime?antihistamine?and?continue?Singulair (6) Chronic back pain: Code(s): M54.9 - Dorsalgia, unspecified; G89.29 - Other chronic pain Category: Medical Plan: Will?give?him?a?script?for?naproxen Continue?pregabalin (7) Morbid obesity with BMI of 40.0-44.9, adult: Code(s): E66.01 - Morbid (severe) obesity due to excess calories; Z68.41 - Body mass index [BMI] 40.0-44.9, adult Category: Medical Plan: Continue?working?at?diet?and?exercise (8) Screening for colon cancer: Code(s): Z12.11 - Encounter for screening for malignant neoplasm of colon Category: Medical Plan: Patient?has?upcoming?colonoscopy?scheduled. He?is?followed?Q? 5?years?due?to?strong?family?history?of?colon?cancer?(brother)?and?history?of?po lyps. (9) Screening for prostate cancer: Code(s): Z12.5 - Encounter for screening for malignant neoplasm of prostate Category: Medical Plan: Check?PSA Medications: New budesonide 180 mcg/actuation (Pulmicort Flexhaler) 2 inhalations inhalation QAM 30 days 1 ea 3RF naproxen 500 mg PO BID 90 days PRN 180 tabs 1RF pain
[2024-04-30 09:10] VITALS: BP 110/70; PULSE 67; RESP 14; O2SAT 95; BMI 41.2
== END 2024-04-30 10:05 | disposition home or self-care (01) ==
PROVIDERS: PCP Family Medicine; Visit Provider Family Medicine
DX: Z00.00 Encounter for general adult medical examination without abnormal findings (principal); R73.01 Impaired fasting glucose; E66.01 Morbid (severe) obesity due to excess calories; Z68.41 Body mass index [BMI] 40.0-44.9, adult; I10 Essential (primary) hypertension; J45.909 Unspecified asthma, uncomplicated; M54.9 Dorsalgia, unspecified; G89.29 Other chronic pain; Z12.11 Encounter for screening for malignant neoplasm of colon; Z12.5 Encounter for screening for malignant neoplasm of prostate

== ENCOUNTER → 2024-04-30 08:39 | Outpatient (BNVA) | payer MEDICARE, SELFPAY | PROVIDERS: PCP Family Medicine; Visit Provider Family Medicine | DX: Z00.00 Encounter for general adult medical examination without abnormal findings (principal); R73.01 Impaired fasting glucose; I10 Essential (primary) hypertension; J45.909 Unspecified asthma, uncomplicated; M54.9 Dorsalgia, unspecified; G89.29 Other chronic pain; E66.01 Morbid (severe) obesity due to excess calories; Z68.41 Body mass index [BMI] 40.0-44.9, adult; Z71.3 Dietary counseling and surveillance | CPT/HCPCS: 83036; 96127; 99212; 99396 ==

== ENCOUNTER 2024-05-28 08:09 | Outpatient (REF) | payer MEDICARE, SELFPAY ==
[2024-05-28 11:25] LABS: Appearance Urine Clear; Color Urine Yellow; Glucose Urine UA Negative (Negative); Leukocyte Esterase Urine Negative (Negative); Nitrite Urine Negative (Negative); PH 7.5 (5.0-9.0); Specific Gravity - Urine 1.015 (1.005-1.025); Urine Blood Negative (Negative); Urine Ketones Negative (Negative); Urine Protein Negative (Neg-Trace)
[2024-05-28 11:42] LABS: MANUAL DIFF FLAG NO
[2024-05-28 11:45] LABS: Basophils Absolute Auto 0.1 X10*3/uL (0.0-0.2); Basophils Percent Auto 0.9 % (0-2); Eosinophils Absolute Auto 0.3 X10*3/uL (0.0-0.4); Eosinophils Percent Auto 4.1 % (0-4); Hemoglobin 16.2 g/dl (14.0-18.0); Imm Gran Abs Auto 0.04 X10*3/uL (0.00-0.03); Imm Gran Pct Auto 0.6 % (0.0-0.4); Lymphocytes Absolute Auto 1.7 X10*3/uL (1.2-4.9); Lymphocytes Percent Auto 26.7 % (20-40); Mean Corpuscular HGB Conc 34.5 g/dl (31.0-36.0); Mean Corpuscular Hemoglobin 31.3 pg (27.0-33.0); Mean Corpuscular Volume 90.7 fL (80.0-98.0); Mean Platelet Volume 11.7 fL (9.4-12.4); Monocytes Absolute Auto 0.6 X10*3/uL (0.1-1.2); Monocytes Percent Auto 9.7 % (2-11); Neutrophils Absolute Auto 3.7 x10*3/uL (2.0-8.3); Platelet Count 178 X10*3/uL (160-400); Red Blood Count 5.18 X10*6/uL (4.60-5.80); Red Cell Distribution Width 12.8 % (11.0-16.0); White Blood Count 6.4 X10*3/uL (4.8-10.8)
[2024-05-28 12:33] LABS: Prostate Specific Antigen Scr 1.76 ng/mL (<0.05-4.0)
[2024-05-28 12:52] LABS: Creatinine Urine 140.26 mg/dL; Microalbum/Creatinine Ratio Ur 46.3 ug/mg cr (<30)
[2024-05-28 13:22] LABS: Alanine Aminotransferase 56 U/L (0-40); Albumin Level 4.1 g/dL (3.5-5.0); Alkaline Phosphatase 88 U/L (39-117); Anion Gap 9 (12-20); Aspartate Amino Transferase 35 U/L (5-37); Bilirubin Total 0.5 mg/dL (0.0-1.0); Blood Urea Nitrogen 15 mg/dL (9-16); Calcium 9.5 mg/dL (8.4-10.2); Carbon Dioxide 29 mmol/L (22-29); Chloride 107 mmol/L (96-108); Cholesterol 176 mg/dL (<200); Estimated Glomerular Filt Rate > 60; Glucose Fasting 92 mg/dL (60-99); HDL Cholesterol 37 mg/dL (>40); LDL Cholesterol Calculated 98 mg/dL (<100); Potassium 3.6 mmol/L (3.3-5.1); Sodium 141 mmol/L (135-145); TSH reflex Free T4 1.09 uIU/mL (0.32-4.0); Total Protein 6.7 g/dL (6.5-8.0); Triglycerides 208 mg/dL (<150)
== END 2024-05-28 08:10 | disposition home or self-care (01) ==
LOC: HO.WFDLDS 08:09
PROVIDERS: Visit Provider Family Medicine
DX: Z00.00 Encounter for general adult medical examination without abnormal findings (principal); Z12.5 Encounter for screening for malignant neoplasm of prostate; I10 Essential (primary) hypertension
CPT/HCPCS: 36415; 80053; 80061; 81003; 82043; 82570; 84153; 84443; 85025

== ENCOUNTER 2024-05-31 14:30 | Outpatient (AMB) | payer BC, SELFPAY ==
--- NOTE | 2024-05-31 14:25 | A.OFFPC_ITS ---
Intake Visit Reasons: f/u CPE-labs via telemedicine Intake Note: patient here for a telehealth visit for lab review Cycle Manager Required: No Allergies latex Allergy (Mild, Verified 05/31/24 14:25) rash meperidine [Demerol] Allergy (Unknown, Verified 05/31/24 14:25) hives meloxicam Adverse Reaction (Intermediate, Verified 05/31/24 14:25) Migraine bandages Allergy (Mild, Uncoded 11/07/23 08:47) itchy rash Tobacco use date assessed: 05/31/24 Fall risk assessment: 2 + Falls in past year Last assessed Fall Risk: 05/31/24 Dental Screening Dental Screen Date: 05/31/24 Did you have a dental visit in the last 12 months?: Yes Did you have a dental problem in the last 6 months where you did not have access to dental care?: No Was dental information given to patient?: Patient has dentist HPI f/u CPE-labs via telemedicine HPI Details 64 y/o male presents to f/u CPE-labs via telemedicine. Labs drawn 05/28/24. Reviewed labs with pt. Triglycerides 208. TC 176. LDL 98. HDL low at 37. Elevated ALT of 56. PFSH Medical History No pertinent past medical history Surgical History H/O colonoscopy (~02/2019) History of spinal fusion History of eye surgery Family History Brother Colon cancer Social History Household Members: Other Housing: House Are you a primary home care specialist to a significant other at home: No Do you presently have visiting nurse or other home services: No 75 years or older and lives alone: No Alcohol intake: current Alcohol intake frequency: holidays/special occasions only Alcohol type: wine Patient Tobacco Use Status: Former Tobacco user e-Cigarette/Vaping Use: Never Used Second Hand Smoke Exposure: No Substance Use Type: Marijuana service: No Current occupational status: retired and disabled Current occupational exposures/hazards: No Sexual orientation: Unable to collect Gender identity: Unable to collect Cognitive needs: Yes (estelita cash wheelchair) Hearing needs: No Vision needs: Yes (glasses) Questionnaire Thrive Questionnaire Date Thrive assessed: 04/30/24 SHWETA-7 AMB Questionnaire SHWETA-7 Date SHWETA - 7 assessed: 04/30/24 Source: Developed by Drs. Federico Kwan, Raven Anderson, Arnulfo Cooley and colleagues, with an educational jacob from [employer]. Physical exam (Primary Care) Tobacco/Smoking Status: Tobacco use Status Tobacco use date assessed 05/31/24 05/31/24 14:28 Patient Tobacco Use Status Former Tobacco user 05/31/24 14:28 e-Cigarette/Vaping Use Never Used 05/31/24 14:28 Thrive Assessment: Date of Thrive Assessment Date Thrive assessed 04/30/24 05/31/24 14:28 Telehealth Telehealth Telehealth Platform: Telephone Location of provider rendering services: practice address Location of patient: address on file Patient Identification confirmed using: Name, : Yes Telehealth method: voice only Patient verbally consented to treatment: Yes Patient verbally consented to billing insurance company: Yes Patient informed of any privacy concerns related to visit: Yes Coding Level of Care Code Tele Est Pt Level 2 (05757) Diagnoses Elevated liver enzymes R74.8 Elevated fasting glucose R73.01 Low HDL (under 40) E78.6 Screening for prostate cancer Z12.5 Chronic back pain M54.9; G89.29 Assessment & Plan Assessment & Plan (1) Elevated liver enzymes: Code(s): R74.8 - Abnormal levels of other serum enzymes Category: Medical Plan: following elevated liver enzymes recheck enzymes prior to next vist Encouraged weight loss (2) Elevated fasting glucose: Code(s): R73.01 - Impaired fasting glucose Category: Medical Plan: Continue diet low in sugars and starches (3) Low HDL (under 40): Code(s): E78.6 - Lipoprotein deficiency Category: Medical Plan: Encouraged exercise (4) Screening for prostate cancer: Code(s): Z12.5 - Encounter for screening for malignant neoplasm of prostate Category: Medical Plan: pSA in normal range continue annual screening (5) Chronic back pain: Code(s): M54.9 - Dorsalgia, unspecified; G89.29 - Other chronic pain Category: Medical Plan: Londstanding back pain and difficulty sitting or standing in one place more than brief periods without needing to change position. Unable to walk more than 50 ft without aid and uses cane and wheelchair
== END 2024-05-31 17:05 | disposition home or self-care (01) ==
LOC: HO.HMCFM 14:30
PROVIDERS: PCP Family Medicine; Visit Provider Family Medicine
DX: R74.8 Abnormal levels of other serum enzymes (principal); R73.01 Impaired fasting glucose; E78.6 Lipoprotein deficiency; Z12.5 Encounter for screening for malignant neoplasm of prostate; M54.9 Dorsalgia, unspecified; G89.29 Other chronic pain

== ENCOUNTER → 2024-05-31 14:30 | Outpatient (BNVA) | payer BC, SELFPAY | PROVIDERS: PCP Family Medicine; Visit Provider Family Medicine ==

== ENCOUNTER 2024-08-16 08:31 | Day surgery (SDC) | payer MEDICARE, SELFPAY ==
[2024-08-14 12:09] VITALS: BMI 40.4
--- NOTE | 2024-08-15 09:15 | P.CONAN_ITS ---
Documented by User: Dominique Howell NP 08/15/24 09:17 HPI - Anesthesia Eval Consult details Narrative: 64yo M for Colonoscopy PMFSH Active Problems Active Problems: All Active Problems Elevated fasting glucose (Acute) Microalbuminuria (Acute) Low HDL (under 40) (Acute) Elevated liver enzymes (Acute) Immunization counseling (Acute) Bladder outlet obstruction (Acute) Neuropathic pain (Acute) Erectile dysfunction (Acute) Depression (Acute) Unsteady gait (Acute) Screening for prostate cancer (Acute) Screening for colon cancer (Acute) Adult general medical exam (Acute) Seasonal allergies (Acute) Disorder of ejaculation (Acute) Chronic back pain (Acute) Laboratory exam ordered as part of routine general medical examination (Acute) GERD (gastroesophageal reflux disease) (Acute) Past Medical History Medical History (Updated 08/14/24 @ 12:23 by Porsha Clinton, ANDREI) Use of cane as ambulatory aid Failed back surgical syndrome Morbid obesity with BMI of 40.0-44.9, adult GERD (gastroesophageal reflux disease) Left-sided weakness Asthma Anxiety with depression Mass, brain Hypertension Family History Family History Brother Colon cancer Surgical History Surgical History H/O colonoscopy (~02/2019) History of spinal fusion History of eye surgery Social History Social History Household Members: Other Housing: House Are you a primary child care specialist to a significant other at home: No Do you presently have visiting nurse or other home services: No Alcohol intake: current Alcohol intake frequency: holidays/special occasions only Alcohol type: wine Patient Tobacco Use Status: Former Tobacco user e-Cigarette/Vaping Use: Never Used Second Hand Smoke Exposure: No Substance Use Type: Marijuana Have you been hit, kicked, punched, or otherwise hurt by someone within the past year? If so, by whom?: No Are you DNR?: No Advance Directives: No Advance Directives Information Provided: Yes service: No Current occupational status: retired and disabled Current occupational exposures/hazards: No Sexual orientation: Unable to collect Gender identity: Unable to collect Cognitive needs: Yes (cane, walker, wheelchair) Hearing needs: No Vision needs: Yes (glasses) Meds Allergies Allergy/AdvReac Type Severity Reaction Status Date / Time latex Allergy Mild rash Verified 05/31/24 14:25 meperidine [Demerol] Allergy Unknown hives Verified 05/31/24 14:25 meloxicam AdvReac Intermediate Migraine Verified 05/31/24 14:25 bandages Allergy Mild itchy rash Uncoded 11/07/23 08:47 Home Medications ?Medication ?Instructions ?Recorded ?Confirmed ?Last Taken ?Type multivitamin (One Daily 1 tab PO DAILY 01/11/22 08/16/24 Unknown History Multivitamin tablet) Exam Height,Weight and Vital Signs: Height 5 ft 9 in Weight 123.998 kg Assessment and Plan Assessment Anesthesia Assessment: Chart Reviewed Documented by User: Sharona Baig MD 08/16/24 09:32 [facility] Past Medical History Medical History (Updated 08/14/24 @ 12:23 by Porsha Clinton, RN) Use of cane as ambulatory aid Failed back surgical syndrome Morbid obesity with BMI of 40.0-44.9, adult GERD (gastroesophageal reflux disease) Left-sided weakness Asthma Anxiety with depression Mass, brain Hypertension Family History Family History Brother Colon cancer Family history of problems with anesthesia: No Surgical History Surgical History H/O colonoscopy (~02/2019) History of spinal fusion History of eye surgery History of Problems with Anesthesia: No Social History Social History Household Members: Other Housing: House Are you a primary child care specialist to a significant other at home: No Do you presently have visiting nurse or other home services: No Alcohol intake: current Alcohol intake frequency: holidays/special occasions only Alcohol type: wine Patient Tobacco Use Status: Former Tobacco user e-Cigarette/Vaping Use: Never Used Second Hand Smoke Exposure: No Substance Use Type: Marijuana Have you been hit, kicked, punched, or otherwise hurt by someone within the past year? If so, by whom?: No Are you DNR?: No Advance Directives: No Advance Directives Information Provided: Yes service: No Current occupational status: retired and disabled Current occupational exposures/hazards: No Sexual orientation: Unable to collect Gender identity: Unable to collect Cognitive needs: Yes (cane, walker, wheelchair) Hearing needs: No Vision needs: Yes (glasses) Meds Allergies Allergy/AdvReac Type Severity Reaction Status Date / Time latex Allergy Mild rash Verified 05/31/24 14:25 meperidine [Demerol] Allergy Unknown hives Verified 05/31/24 14:25 meloxicam AdvReac Intermediate Migraine Verified 05/31/24 14:25 bandages Allergy Mild itchy rash Uncoded 11/07/23 08:47 Home Medications ?Medication ?Instructions ?Recorded ?Confirmed ?Last Taken ?Type multivitamin (One Daily 1 tab PO DAILY 01/11/22 08/16/24 Unknown History Multivitamin tablet) Exam Airway Mallampati Class: IV TM Dist: >3cm Neck ROM: Full Assessment and Plan Assessment Anesthesia Assessment: Anesthesia Plan Discussed Final Anesthetic Review Family History of Problems with Anesthesia: No History of Problems with Anesthesia: No ASA Class: III Final Preanesthetic Review: No Changes in Pt Med Stat, Meds/Allgs Chart Reviewed, Consent Obtained/Reviewed and Anes Risks/Benef Reviewed Patient Risk: Intermediate Procedure Risk: Low Anesthetic Plan Anesthetic Plan: TIVA Disposition: Standard PACU
[2024-08-16 08:38] VITALS: BP 134/87; PULSE 87; RESP 20; TEMP 36.4; O2SAT 96; BMI 40.7
[2024-08-16] MEDS: Lactated Ringers 1,000 ML 100 ML IVCONT (08:59)
--- NOTE | 2024-08-16 11:29 | MHC.SHP ---
Pre-Procedural Eval Section A - 24 Hr Update-Section A only Date of Service: 08/16/24 Section B - Complete if H&P > 30 days Chief Complaint: Screening Present Medications: see Short Stay Collaborative assessment Medical History: No relevant PMH History of Previous Operations: No relevant previous surgery Allergies: Allergies Allergy/AdvReac Type Severity Reaction Status Date / Time latex Allergy Mild rash Verified 05/31/24 14:25 meperidine [Demerol] Allergy Unknown hives Verified 05/31/24 14:25 meloxicam AdvReac Intermediate Migraine Verified 05/31/24 14:25 bandages Allergy Mild itchy rash Uncoded 11/07/23 08:47 Review of Systems Review of Systems Comment: Ten point ROS negative Exam Exam Comment: Gen appear: No acute distress HEENT: no icterus Chest: No overt resp distress Abd: soft, nontender, nondistended Psych: Stable affect, answering questions appropriately Neuro: A/Ox3 noted to move all extremities spontaneously Ext: no peripheral edema Plan Diagnosis/Plan: Unchanged I have reviewed the history and physical and performed a pertinent physical examination on my patient. No changes have occurred unless specified. Time Spent With Patient Time: Total time managing care of this patient today ____ minutes.
--- NOTE | 2024-08-16 13:40 | P.OPN-COLO_ITS ---
Colonoscopy Operative Note Operative Note Date of Service: 08/16/24 Narrative: Procedure: Colonoscopy Indication: Fam hx of CRC, personal hx of polyps Endoscopist: Ele Hoover MD Anesthesia Provider: Dr Sharona Baig Anesthesia type: MAC Instrument: Olympus [id number]-[id number] Consent: Indication, risks vs benefits, and alternatives were discussed with the patient who gave written informed consent to proceed. EKG, pulse, pulse oximetry and blood pressure were monitored throughout the procedure. Please see anesthesia flowsheet. Procedure: The patient was brought to the procedure room and a regular abdominal binder was affixed to the lower abdomen. The patient was then placed in the left lateral decubitus position. IV medications were administered by the anesthesia provider in attendance. A digital rectal exam was performed which was normal. A distal attachment cap was affixed to the tip of the colonoscope which was then inserted through the anus and advanced through the colon to the cecum at 90 cm. Appendiceal orifice and ileocecal valve were identified. Mucosa was carefully examined under high definition white light as the instrument was slowly withdrawn in a retrograde panoramic fashion. Retroflexion was performed in rectum. The procedure was not difficult. There were no immediate obvious complications. The quality of the prep was BBPS: 3+2+3 = adequate Withdrawal time 14 minutes. Limitations: No limitations. Findings: Mucosa: Normal to cecum. Protruding lesions: * 1 sessile polyp of size 4 mm in cecum. Cold snare polypectomy was performed. The polyp was completely removed and retrieved. * 1 sessile polyp of size 3 mm in transverse colon. Cold snare polypectomy was performed. The polyp was completely removed and retrieved. * Medium internal hemorrhoids without stigmata of recent bleeding. Excavated lesions: * Small diverticulosis of left sided colon. Impression: 1. Normal colon mucosa 2. Total of 2 polyps removed 3. Diverticulosis 4. Internal hemorrhoids Recommendations: - Follow path results. - Repeat colonoscopy in 5 years due to fam hx of CRC in brother in his 50s.
[2024-08-16 13:44] VITALS: BP 120/65; PULSE 93; RESP 14; TEMP 37.1; O2SAT 98
[2024-08-16 13:59] VITALS: BP 111/71; PULSE 80; RESP 16; O2SAT 93
[2024-08-16 14:14] VITALS: BP 103/65; PULSE 83; RESP 16; TEMP 37.1; O2SAT 95
== END 2024-08-16 14:37 | disposition home or self-care (01) ==
PROVIDERS: PCP Family Medicine; Visit Provider Internal Medicine
PROC: 0DJD8ZZ Inspection of Lower Intestinal Tract, Via Natural or Artificial Opening Endoscopic (ICD-10-PCS; CPT 45378; principal; 2024-08-16 12:20)
DX: Z12.11 Encounter for screening for malignant neoplasm of colon (principal); Z80.0 Family history of malignant neoplasm of digestive organs; Z86.0101 Personal history of adenomatous and serrated colon polyps; D12.3 Benign neoplasm of transverse colon; D12.0 Benign neoplasm of cecum; K57.30 Diverticulosis of large intestine without perforation or abscess without bleeding; K64.8 Other hemorrhoids; K59.01 Slow transit constipation; K21.9 Gastro-esophageal reflux disease without esophagitis; R13.12 Dysphagia, oropharyngeal phase; G89.29 Other chronic pain; M54.9 Dorsalgia, unspecified; E66.9 Obesity, unspecified; Z68.41 Body mass index [BMI] 40.0-44.9, adult; Z98.1 Arthrodesis status; Z79.899 Other long term (current) drug therapy; Z99.89 Dependence on other enabling machines and devices; Z91.040 Latex allergy status; Z88.8 Allergy status to other drugs, medicaments and biological substances; L23.1 Allergic contact dermatitis due to adhesives; Z87.891 Personal history of nicotine dependence
CPT/HCPCS: 45385; 88305; J2003; J2704

== ENCOUNTER → 2024-08-16 08:31 | Outpatient (BNV) | payer MEDICARE, SELFPAY | PROVIDERS: PCP Family Medicine; Visit Provider Internal Medicine | DX: Z12.11 Encounter for screening for malignant neoplasm of colon (principal); Z86.0100 Personal history of colon polyps, unspecified; D12.0 Benign neoplasm of cecum; K57.30 Diverticulosis of large intestine without perforation or abscess without bleeding | CPT/HCPCS: 45385 ==

== ENCOUNTER 2024-09-06 13:22 | Outpatient (AMB) | payer MEDICARE, SELFPAY ==
--- NOTE | 2024-09-06 13:16 | A.OFFPC_ITS ---
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 Required: No Allergies latex Allergy (Mild, Verified 09/06/24 13:17) rash meperidine [Demerol] Allergy (Unknown, Verified 09/06/24 13:17) hives meloxicam Adverse Reaction (Intermediate, Verified 09/06/24 13:17) Migraine bandages Allergy (Mild, Uncoded 11/07/23 08:47) itchy rash Medication List - Last Reconciled 09/06/24 by Santy Davis MD albuterol sulfate 90 mcg/actuation 2 puffs PO Q4-6H PRN hospital bed (bed,hospital) Electric adjustable bed, Daily As directed, 999 days lisinopril-hydrochlorothiazide 20-25 mg 1 tab PO DAILY 90 days montelukast 10 mg PO BEDTIME 90 days multivitamin (One Daily Multivitamin tablet) 1 tab PO DAILY pregabalin (Lyrica) 1 cap (100mg) AM and 2 caps (200mg) PM orally 2 times a day; 30 days Tobacco use date assessed: 09/06/24 Fall risk assessment: 2 + Falls in past year Last assessed Fall Risk: 09/06/24 Dental Screening Dental Screen Date: 09/06/24 Did you have a dental visit in the last 12 months?: Yes Did you have a dental problem in the last 6 months where you did not have access to dental care?: No Was dental information given to patient?: Patient has dentist HPI F/u hypertension, weight HPI Details 64 y/o male presents to f/u hypertension , weight via telemedicine. He notes checks his blood pressure at home. 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 He is on lisinopril-HCTZ 20-25mg daily. Pt notes he had been trying to exercise. [facility] Medical History (Updated 09/06/24 @ 17:22 by Roberto Coulter) Hypertension Use of cane as ambulatory aid Failed back surgical syndrome Morbid obesity with BMI of 40.0-44.9, adult GERD (gastroesophageal reflux disease) Left-sided weakness Asthma Anxiety with depression Mass, brain Surgical History H/O colonoscopy (~02/2019) History of spinal fusion History of eye surgery Family History Brother Colon cancer Social History Household Members: Other Housing: House Are you a primary career and guidance counselor to a significant other at home: No Do you presently have visiting nurse or other home services: No 75 years or older and lives alone: No Alcohol intake: current Alcohol intake frequency: holidays/special occasions only Alcohol type: wine Patient Tobacco Use Status: Former Tobacco user e-Cigarette/Vaping Use: Never Used Second Hand Smoke Exposure: No Substance Use Type: Marijuana service: No Current occupational status: retired and disabled Current occupational exposures/hazards: No Sexual orientation: Unable to collect Gender identity: Unable to collect Cognitive needs: Yes (cane, walker, wheelchair) Hearing needs: No Vision needs: Yes (glasses) Questionnaire Thrive Questionnaire Date Thrive assessed: 04/30/24 SHWETA-7 AMB Questionnaire SHWETA-7 Date SHWETA - 7 assessed: 04/30/24 Source: Developed by Drs. Federico Kwan, Raven Anderson, Arnulfo Cooley and colleagues, with an educational jacob from [employer]. Physical exam (Primary Care) Tobacco/Smoking Status: Tobacco use Status Tobacco use date assessed 09/06/24 09/06/24 13:20 Patient Tobacco Use Status Former Tobacco user 09/06/24 13:20 e-Cigarette/Vaping Use Never Used 09/06/24 13:20 Thrive Assessment: Date of Thrive Assessment Date Thrive assessed 04/30/24 09/06/24 13:20 Telehealth Telehealth Telehealth Platform: Telephone Location of provider rendering services: practice address Location of patient: address on file Patient Identification confirmed using: Name, : Yes Telehealth method: voice only Patient verbally consented to treatment: Yes Patient verbally consented to billing insurance company: Yes Patient informed of any privacy concerns related to visit: Yes Minutes spent on Phone/Video with Pt.: 9 Coding Level of Care Code Tele Est Pt Level 2 (05708) Diagnoses Hypertension I10 Morbid obesity E66.01 Assessment & Plan Assessment & Plan (1) Hypertension: Code(s): I10 - Essential (primary) hypertension Category: Medical Plan: 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 Goal?is?less?than?140/90 Continue?current?medication (2) Morbid obesity: Code(s): E66.01 - Morbid (severe) obesity due to excess calories Category: Medical Plan: Had?tried?sending?GLP1?medication?but?this?was?declined?by?his?insurance He?will?check?with?his?insurance?to?see?if?there?are?any?others?they?will?cover Orders: Orders Microalbumin, Random (w Creat) Today I10 - Essential (primary) hypertension Hemoglobin A1c Today R73.01 - Impaired fasting glucose UA CC w/rflx Micro + Cult Today I10 - Essential (primary) hypertension, Z00.00 - Encounter for general adult medical examination without abnormal findings Comprehensive Met. Panel Today R74.8 - Abnormal levels of other serum enzymes Medications: Changed From lisinopril-hydrochlorothiazide 20-25 mg 1 tab PO DAILY 30 days 100 tabs 2RF To lisinopril-hydrochlorothiazide 20-25 mg 1 tab PO DAILY 90 days 90 tabs 2RF
--- OUTSIDE RECORDS SUMMARY | 2024-09-06 16:20 | XMS_ITS | Clinical Summary ---
Author Organization [facility] Address [address] [place] [address] Care Team Providers Care Director Of Instructional Technology Name Role Phone Unavailable Primary Care Provider Unavailabl e Surgical History Surgery Date Site/Laterality Comments LUMBAR LAMINECTOMY 2001 PROCEDURE: HISTORICAL LUMB LAMINECTOMY COLONOSCOPY 2009, 11/06/13 PROCEDURE: HISTORICAL COLONOSCOPY; COMMENT: repeat 5 years UPPER GASTROINTESTINAL ENDOSCOPY 11/06/2013 PROCEDURE: [place] UPPER GI ENDOSCOPY PERFORMED Medical History Medical History Date Comments Allergic rhinitis 01/31/2018 DX:Allergic rh initis Anxiety 01/31/2018 DX:Anxiety Asthma 01/31/2018 DX:Asthma Chronic constipation 01/31/2018 DX:Chronic constipation Chronic left lumbar radiculopathy 01/31/2018 DX:Chronic left lumbar radiculopathy; COMMENT: LLE weakness, foot drop, diminished vibratory and light touch sensation distal to hip, has AFO brace Colon polyp 01/31/2018 DX:Colon polyp Depression 01/31/2018 DX:Depression Failed back syndrome of lumbar spine 01/31/2018 DX:Failed back syndrome of lumbar spine; COMMENT: S/p fusion, can ambulate with cane for short distances, wheelchair Fatty liver 01/31/2018 DX:Fatty liver GERD (gastroesophageal reflux disease) 01/31/2018 DX:GERD (gastroesophageal reflux disease) Hiatal hernia 01/31/2018 DX:Hiatal hernia Hyperlipidemia 01/31/2018 DX:Hyperlipidemi a Hypertension 01/31/2018 DX:Hypertension Insomnia 01/31/2018 DX:Insomnia Low testosterone level in male 01/31/2018 D X:Low testosterone level in male Medical marijuana use 01/31/2018 DX:Medical marijuana use Proteinuria 01/31/2018 DX:Proteinuria Vitamin D deficiency 01/31/2018 DX:Vitamin D deficiency Family history of pancreatic cancer 07/02/2019 DX:Family history of pancreatic cancer; COMMENT: Genetic testing negative Family History Medical History Relation Name Comments Colon cancer Brother 1 Other: brain tumor Brother 2 Melanoma Brother 3 Other: liver cancer Father Pancreatic cancer Father Other: bone cancer Maternal Grandfather Pancreatic cancer Mother Leukemia Sister Other: pancreatic cancer Uncle 1 mat ernal uncle 1 Other: pancreatic cancer Uncle 2 mat ernal uncle 2 Relation Name Status Comments Brother 1 Brother 2 Brother 3 Alive Father Maternal Grandfather Maternal Grandmother Mother Sister Uncle 1 Uncle 2 Social History Tobacco Use Types Packs/Day Years Used Date Smoking Tobacco: Former Cigarettes 1 16 0 05/23/1974 - 05/23/1990 Smokeless Tobacco: Never Alcohol Use Standard Drinks/Week Comments Yes 0 (1 standard drink = 0.6 oz pur e alcohol) Sex and Gender Information Value Date Recorded Sex Assigned at Not on file Legal Sex Male 7:23 PM EST Gender Identity Not on file Sexual Orientation Not on file Obstetrics History Last Filed Vital Signs Vital Sign Reading Time Taken Comments Blood Pressure 116/71 12/10/2021 9:50 AM EDT Sitting L Arm Pulse 76 12/10/2021 9:50 AM EDT Temperature - - Respiratory Rate - - Oxygen Saturation - - Inhaled Oxygen Concentration - - Weight 109 kg (239 lb 12.8 oz) 12/10/2021 9:50 AM EDT Height 177.8 cm (5' 10 ) 12/10/2021 9:5 0 AM EDT Body Mass Index 34.41 12/10/2021 9:50 AM EDT Plan of Treatment Health Maintenance Due Date Last Done Comments Hepatitis A Vaccines (1 of 2 - Risk 2-dose series) 1979 Zoster Vaccines (1 of 2) 2010 Pneumococcal Vaccine: 50+ Years (2 of 2 - PCV) 02/02/2019 02/02/2018 Pneumococcal Vaccine: Pediatrics (0 to 5 Years) and At-Risk Patients (6 to 64 Years) (2 of 2 - PCV) 02/02/2019 02/02/2018 Hepatitis B Vaccines (1 of 3 - Risk 3-dose series) 2020 RSV Immunization Adult Patients (1 - Risk 60-74 years 1-dose series) 2020 Cholesterol Screening (Lipid Panel) 05/01/2022 Colorectal Cancer Screening: Colonoscopy 05/01/2022 Depression Screening 05/01/2022 HIV Screening 05/01/2022 Hepatitis C Screening 05/01/2022 Social Influencers of Health Screening 05/01/2022 Hypertension/CHF/CAD Annual BMP Blood Test 07/06/2023 COVID-19 Vaccine ( season) 2024 07/10/2021, 09/21/2020, 08/31/2020 Influenza Vaccine (Season Ended) 2025 07/10/2021, 05/19/2020, 01/26/2019, Additional history exists DTaP,Tdap,and Td Vaccines (2 - Td or Tdap) 03/16/2028 03/16/2018 HIB Vaccines Aged Out No longer eligi ble based on patient's age to complete this topic HPV Vaccines Aged Out No longer eligi ble based on patient's age to complete this topic IPV Vaccines Aged Out No longer eligi ble based on patient's age to complete this topic MMR Vaccines Aged Out No longer eligi ble based on patient's age to complete this topic Meningococcal ACWY Vaccine Aged Out N o longer eligible based on patient's age to complete this topic Meningococcal B Vaccine Aged Out No l onger eligible based on patient's age to complete this topic RSV Immunization Patients Under 20 months Aged Out No longer eligible based on patient's age to complete this topic Varicella Vaccines Aged Out No longer eligible based on patient's age to complete this topic
--- OUTSIDE RECORDS SUMMARY | 2024-09-06 16:20 | XMS_ITS | Clinical Summary ---
Author Organization [facility] Address [address] [place] [address] Care Team Providers Care Storage Battery Tester Name Role Phone Unavailable Primary Care Provider Unavailabl e Social History Tobacco Use Types Packs/Day Years Used Date Smoking Tobacco: Never Assessed Sex and Gender Information Value Date Recorded Sex Assigned at Not on file Gender Identity Not on file Sexual Orientation Not on file Plan of Treatment Health Maintenance Due Date Last Done Comments Hepatitis C Screening 1960 COVID-19 Vaccine (#1) 1960 Depression Screening 1972 Preventative Health Evaluation 1978 DTap / Tdap / Td (1 - Tdap) 1979 Colon Cancer Screening (Colonoscopy) 2005 Shingrix-Zoster Vaccine (1 of 2) 2010 Influenza Vaccine (#1) 2024 Pneumococcal Vaccine (1 of 1 - PCV) 2025 RSV Adult > 60+ Yrs or Pregn ant (1 - 1-dose 75+ series) 2035 Hepatitis B Vaccines Aged Out No long er eligible based on patient's age to complete this topic Pneumococcal Vaccine Aged Out No long er eligible based on patient's age to complete this topic RSV Ped < 20 months Aged Out No longe r eligible based on patient's age to complete this topic
== END 2024-09-06 17:05 | disposition home or self-care (01) ==
LOC: HO.HMCFM 13:22
PROVIDERS: PCP Family Medicine; Visit Provider Family Medicine
DX: I10 Essential (primary) hypertension (principal); E66.01 Morbid (severe) obesity due to excess calories

== ENCOUNTER → 2024-09-06 13:22 | Outpatient (BNVA) | payer MEDICARE, SELFPAY | PROVIDERS: PCP Family Medicine; Visit Provider Family Medicine ==

== ENCOUNTER 2024-12-06 07:30 | Outpatient (REF) | payer MEDICARE, SELFPAY ==
--- OUTSIDE RECORDS SUMMARY | 2024-12-06 07:31 | XMS_ITS | Clinical Summary ---
Author Organization [address] [place] [address] Address [address] [place] [address] Phone Care Team Providers Care Medical Claims Manager Name Role Phone Santy Davis MD Primary Care Provider [phone] Encounters Date Type Department Care Team Description 11/27/2024 Telephone Neurosurgery [facility] [address] [address] Mckenzie Samuels MA from Last 3 Months Surgical History Surgery Date Site/Laterality Comments LUMBAR LAMINECTOMY 2001 PROCEDURE: HISTORICAL LUMB LAMINECTOMY COLONOSCOPY 2009, 11/06/13 PROCEDURE: HISTORICAL COLONOSCOPY; COMMENT: repeat 5 years UPPER GASTROINTESTINAL ENDOSCOPY 11/06/2013 PROCEDURE: [place] UPPER GI ENDOSCOPY PERFORMED Medical History Medical [...] HIV Screening 05/01/2022 Hepatitis C Screening 05/01/2022 Medicare Annual Wellness Visit 05/01/2022 Social Influencers of Health Screening 05/01/2022 Hypertension/CHF/CAD Annual BMP Blood Test 07/06/2023 COVID-19 Vaccine ( season) 2024 07/10/2021, 09/21/2020, 08/31/2020 Influenza Vaccine (#1) 2025 , 05/19/2020, 01/26/2019, Additional history exists DTaP,Tdap,and Td [...] on patient's age to complete this topic Insurance BLUE CROSS - [place] MEDICARE ADVANTAGE Care Teams Medical Claims Manager Relationship Specialty Start Date End Date Santy Davis MD [address] [place] [address] Dr Willie MA PCP - General Family Medicine 11/27/24
--- OUTSIDE RECORDS SUMMARY | 2024-12-06 07:31 | XMS_ITS | Clinical Summary ---
Author Organization [facility] Address [address] [place] [address] Care Team Providers Care Biology Manager Name Role Phone Unavailable Primary Care Provider [...] (1 of 2) 2010 Influenza Vaccine (#1) 2025 Pneumococcal Vaccine (1 of 1 - PCV) [...]
[2024-12-06 11:32] LABS: Alanine Aminotransferase 52 U/L (0-40); Albumin Level 4.2 g/dL (3.5-5.0); Alkaline Phosphatase 94 U/L (39-117); Anion Gap 11 (12-20); Aspartate Amino Transferase 34 U/L (5-37); Blood Urea Nitrogen 17 mg/dL (9-16); Calcium 9.1 mg/dL (8.4-10.2); Carbon Dioxide 28 mmol/L (22-29); Chloride 107 mmol/L (96-108); Estimated Glomerular Filt Rate > 60; Potassium 3.8 mmol/L (3.3-5.1); Sodium 142 mmol/L (135-145); Total Protein 6.4 g/dL (6.5-8.0)
[2024-12-06 11:45] LABS: Hemoglobin A1C 149.2508 umol/L; Total Hemoglobin (HGBA1C) 3978.2733 umol/L
[2024-12-06 11:52] LABS: Appearance Urine Clear; Glucose Urine UA Negative (Negative); PH 7.0 (5.0-9.0); Specific Gravity - Urine 1.015 (1.005-1.025)
[2024-12-06 12:02] LABS: Microalbum/Creatinine Ratio Ur 47.3 ug/mg cr (<30)
== END 2024-12-06 07:31 | disposition home or self-care (01) ==
LOC: HO.WFDLDS 07:30
PROVIDERS: Visit Provider Family Medicine
DX: Z00.00 Encounter for general adult medical examination without abnormal findings (principal); I10 Essential (primary) hypertension; R73.01 Impaired fasting glucose; R74.8 Abnormal levels of other serum enzymes
CPT/HCPCS: 36415; 80053; 81003; 82043; 82570; 83036

== ENCOUNTER 2024-12-10 09:38 | Outpatient (AMB) | payer MEDICARE, SELFPAY ==
--- NOTE | 2024-12-10 09:43 | MHC.PC.OV ---
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: No Allergies latex Allergy (Mild, Verified 12/10/24 09:59) rash meperidine (Demerol) Allergy (Unknown, Verified 12/10/24 09:59) hives meloxicam Adverse Reaction (Intermediate, Verified 12/10/24 09:59) Migraine bandages Allergy (Mild, Uncoded 11/07/23 08:47) itchy rash Medication List - Last Reconciled 12/10/24 by Santy Davis MD albuterol sulfate 90 mcg/actuation 2 puffs PO Q4-6H PRN hospital bed (bed,hospital) Electric adjustable bed, Daily As directed, 999 days lisinopril-hydrochlorothiazide 20-25 mg 1 tab PO DAILY 90 days montelukast 10 mg PO BEDTIME 90 days multivitamin (One Daily Multivitamin tablet) 1 tab PO DAILY naproxen 500 mg PO BID pregabalin (Lyrica) 1 cap (100mg) AM and 2 caps (200mg) PM orally 2 times a day; 30 days Tobacco use date assessed: 12/10/24 Fall risk assessment: 2 + Falls in past year Last assessed Fall Risk: 12/10/24 Dental Screening Dental Screen Date: 12/10/24 Did you have a dental visit in the last 12 months?: Yes Did you have a dental problem in the last 6 months where you did not have access to dental care?: No Was dental information given to patient?: Patient has dentist HPI f/u HTN, labs HPI Details 64 y/o male presents to f.u HTN, labs. Blood pressure today 137/76, 78p. He is on lisinopril-HCTZ 20-25mg daily. Pt notes he does not sleep that well. Has not been tested for sleep apnea. Feels fatigue/unrested during the day. Labs drawn 12/06/24. Reviewed labs with pt. Elevated ALT of 52. Microalb/Creat ratio 47.3 ug/mg cr. HPI Comments History of Present Illness Details Documentation assistance for Santy Davis MD, was provided by Roberto Coulter,? Machine Heel Seat Laster on 12/10/2024 at 10:34 AM EST. I, Dr. Davis, have read, observed, and verified documentation. ?? [facility] Medical History (Updated 12/10/24 @ 10:34 by Roberto Coulter) Hypertension Use of cane as ambulatory aid Failed back surgical syndrome Morbid obesity with BMI of 40.0-44.9, adult GERD (gastroesophageal reflux disease) Left-sided weakness Asthma Anxiety with depression Mass, brain Surgical History H/O colonoscopy (~02/2019) History of spinal fusion History of eye surgery Family History Brother Colon cancer Social History Household Members: Other Housing: House Are you a primary pediatric critical care nurse to a significant other at home: No Do you presently have visiting nurse or other home services: No 75 years or older and lives alone: No Alcohol intake: current Alcohol intake frequency: holidays/special occasions only Alcohol type: wine Patient Tobacco Use Status: Former Tobacco user e-Cigarette/Vaping Use: Never Used Second Hand Smoke Exposure: No Substance Use Type: Marijuana service: No Current occupational status: retired and disabled Current occupational exposures/hazards: No Sexual orientation: Unable to collect Gender identity: Unable to collect Cognitive needs: Yes (cane, walker, wheelchair) Hearing needs: No Vision needs: Yes (glasses) Questionnaire PHQ-9 Over the last 2 weeks, how often have you been bothered by any of the following problems? 1. Little interest or pleasure in doing things: more than half the days 2. Feeling down, depressed, or hopeless: several days 3. Trouble falling or staying asleep, or sleeping too much: more than half the days 4. Feeling tired or having little energy: several days 5. Poor appetite or overeating: more than half the days 6. Feeling bad about yourself - or that you are a failure or have let yourself or your family down: several days 7. Trouble concentrating on things, such as reading the newspaper or watching television: several days 8. Moving or speaking so slowly that other people could have noticed. Or the opposite - being so fidgety or restless that you have been moving around a lot more than usual: not at all 9. Thoughts that you would be better off or of hurting yourself in some way: not at all Total score: 10 Source: Developed by Drs. Federico Kwan, Raven Anderson, Arnulfo Cooley and colleagues, with an educational jacob from [employer]. Thrive Questionnaire Date Thrive assessed: 04/30/24 I am a: Patient What is your living situation today?: I have a steady place to live Within the past 12 months, did the food you bought not last and you didn't have the money to get more?: Never true Within the past 12 months, did you worry whether your food would run out before you got money to buy more?: Never true Do you have trouble paying for medicines?: Yes Do you have trouble getting transportation to medical appointments?: No Do you have trouble paying your heating and electricity bill?: No Do you have trouble taking care of your child, family member or friend?: No Do you have trouble with day-to-day activities such as bathing, preparing meals, shopping, managing finances, etc.?: Yes Are you currently unemployed and looking for a job?: I choose not to answer this question Are you interested in more education?: No Please select the resources that you would like help with: None Currently or been in a relationship where the following occur: No concerns reported THRIVE Score: 0 AUDIT C Alcohol Use Questionnaire (AUDIT-C) 1. How often do you have a drink containing alcohol?: 2-4 times a month 2. How many drinks containing alcohol do you have on a typical day when you are drinking?: 1 or 2 3. How often do you have six or more drinks on one occasion?: Never Total Score: 2 SHWETA-7 AMB Questionnaire SHWETA-7 Date SHWETA - 7 assessed: 04/30/24 Feeling nervous, anxious, or on edge: 3 = Nearly every day Not being able to stop or control worryin = Several days Worrying too much about different things: 1 = Several days Trouble relaxin = Several days Being so restless that it is hard to sit still: 1 = Several days Becoming easily annoyed or irritable: 0 = Not at all Feeling afraid as if something awful might happen: 0 = Not at all Total SHWETA-7 score (0-4 normal; 5-9 mild; 10-14 moderate; 15-21 severe): 7 Source: Developed by Drs. Federico Kwan, Raven Anderson, Arnulfo Cooley and colleagues, with an educational jacob from [employer]. Review of Systems Const Denies chills, Denies fatigue, Denies fever(s), Denies headache(s) and Denies weakness ENT Denies dizziness and Denies headache(s) Card Denies dyspnea Resp Denies cough, Denies dyspnea, Denies wheezing and Denies other (shortness of breath) Musc Denies numbness and Denies tingling Neuro Denies dizziness, Denies headache(s), Denies numbness, Denies tingling and Denies weakness Psych Denies anxiety and Denies depression Endo Denies fatigue Aller/Immun Denies wheezing Physical exam (Primary Care) Vital Signs: Last Vital Signs Temp 98.3 F 12/10/24 10:02 Pulse 78 12/10/24 10:02 Resp 16 12/10/24 10:02 BP 137/76 12/10/24 10:02 Pulse Ox 95 12/10/24 10:02 Oxygen Delivery Method Room Air 12/10/24 10:02 BMI result Body Mass Index 42.7 Tobacco/Smoking Status: Tobacco use Status Tobacco use date assessed 12/10/24 12/10/24 10:05 Patient Tobacco Use Status Former Tobacco user 12/10/24 09:43 e-Cigarette/Vaping Use Never Used 12/10/24 09:43 PHQ-9: PHQ-9 Score PHQ-9: Total score 10 12/10/24 09:43 Thrive Assessment: Date of Thrive Assessment Date Thrive assessed 04/30/24 12/10/24 09:43 Currently or been in a relationship where the following occur: No concerns reported Const General: well developed; No acute distress Nutritional Appearance: well nourished and obese morbidly obese Orientation/consciousness: patient oriented x3 HENMT Head: Yes normocephalic and Yes atraumatic Eyes General: appearance normal, both eyes and all related structures Pupils: Equal, round and reactive pupils present EOM: EOMs intact bilaterally Resp Effort & Inspection: normal respiratory effort Auscultation: clear to auscultation bilaterally Cardio Rate: regular rate Rhythm: regular rhythm Heart sounds: S1 normal heart sound present, S2 normal heart sound present, no gallops, no murmurs and no rubs Neuro General: patient oriented x3 and gait normal Cranial nerves: Yes Equal, round and reactive pupils present Psych Affect: normal affect Coding Level of Care Code Est Pt Level 4 (98279) Diagnoses Hypertension I10 Elevated liver enzymes R74.8 Hypersomnia G47.10 Microalbuminuria R80.9 Chronic back pain M54.9; G89.29 Assessment & Plan Assessment & Plan (1) Hypertension: Code(s): I10 - Essential (primary) hypertension Category: Medical Plan: Blood pressure fairly well controlled. Goal is less than 140/90 Continue current medication Watch salt/sodium Work at exercise and weight loss as able (2) Elevated liver enzymes: Code(s): R74.8 - Abnormal levels of other serum enzymes Category: Medical Plan: Liver enzymes have decreased slightly He is working on good hydration Encouraged weight loss again (3) Hypersomnia: Code(s): G47.10 - Hypersomnia, unspecified Category: Medical Plan: Hypersomnia and body habitus and neck size consistent with sleep apnea. Patient gets poor sleep and is sleepy throughout his day Referred to Sleep Medicine (4) Microalbuminuria: Code(s): R80.9 - Proteinuria, unspecified Category: Medical Plan: Hydrate well Controlled blood pressure He is on lisinopril Will continue to monitor (5) Chronic back pain: Code(s): M54.9 - Dorsalgia, unspecified; G89.29 - Other chronic pain Category: Medical Plan: Using naproxen and pregabalin Still has ongoing chronic back pain. Has seen pain management but he does not feel that they were helpful Encouraged him to continue the above medications and add some Tylenol Will check x-ray and review at next visit Orders: Orders XR lumbar spine 2-3V Today G89.29 - Other chronic pain, M54.9 - Dorsalgia, unspecified Microalbumin, Random (w Creat) Today I10 - Essential (primary) hypertension Comprehensive Met. Panel Today I10 - Essential (primary) hypertension Referrals Sleep Medicine Referral G47.10 - Hypersomnia, unspecified Medications: New naproxen 500 mg PO BID 180 tabs 2RF 90 days
[2024-12-10 10:02] VITALS: BP 137/76; PULSE 78; RESP 16; TEMP 36.8; O2SAT 95; BMI 42.7
--- OUTSIDE RECORDS SUMMARY | 2024-12-10 10:13 | XMS_ITS | Clinical Summary ---
Author Organization [address] [place] [address] Address [address] [place] [address] Phone Care Team Providers Care Spacecraft Systems Engineer Name Role Phone Santy Dvais MD Primary Care Provider [phone] Encounters Date Type Department Care Team Description 11/27/2024 Telephone Neurosurgery [facility] [address] [id number] Mckenzie Samuels MA from Last [...] Panel) 05/01/2022 Colorectal Cancer Screening: Colonoscopy 05/01/2022 HIV Screening 05/01/2022 Hepatitis C Screening 05/01/2022 Medicare Annual Wellness Visit 05/01/2022 Social Influencers of Health Screening 05/01/2022 Hypertension/CHF/CAD Annual BMP Blood Test 07/06/2023 COVID-19 Vaccine ( season) 2024 07/10/2021, 09/21/2020, 08/31/2020 Depression Screening 05/23/2024 Influenza Vaccine (#1) 2025 2, 05/19/2020, 01/26/2019, Additional history exists DTaP,Tdap,and Td [...] [place] - [place] Care Teams Spacecraft Systems Engineer Relationship Specialty Start Date End Date Santy Davis MD [address] [place] [address] Dr Willie MA PCP - General Family Medicine 11/27/24
--- OUTSIDE RECORDS SUMMARY | 2024-12-10 10:13 | XMS_ITS | Clinical Summary ---
Author Organization [facility] Address [address] [place] [address] Care Team Providers Care Clock Mechanic Name Role Phone Unavailable Primary Care Provider [...]
== END 2024-12-10 10:47 | disposition home or self-care (01) ==
LOC: HO.HMCFM 09:39
PROVIDERS: PCP Family Medicine; Visit Provider Family Medicine
DX: I10 Essential (primary) hypertension (principal); R74.8 Abnormal levels of other serum enzymes; G47.10 Hypersomnia, unspecified; R80.9 Proteinuria, unspecified; M54.9 Dorsalgia, unspecified; G89.29 Other chronic pain

== ENCOUNTER → 2024-12-10 09:38 | Outpatient (BNVA) | payer MEDICARE, SELFPAY | PROVIDERS: PCP Family Medicine; Visit Provider Family Medicine | DX: I10 Essential (primary) hypertension (principal); R74.8 Abnormal levels of other serum enzymes; G47.10 Hypersomnia, unspecified; R80.9 Proteinuria, unspecified; M54.9 Dorsalgia, unspecified; G89.29 Other chronic pain | CPT/HCPCS: 96127; 99212 ==

== ENCOUNTER → 2024-12-20 08:15 | Outpatient (BNV) | payer MEDICARE, SELFPAY | PROVIDERS: PCP Family Medicine; Visit Provider Radiology Diagnostic Radiology | DX: D35.2 Benign neoplasm of pituitary gland (principal) | CPT/HCPCS: 70553 ==

== ENCOUNTER 2024-12-20 08:19 | Outpatient (REF) | payer MEDICARE, SELFPAY ==
--- NOTE | ~2024-12-20 | MR_ITS ---
EXAMINATION: MR BRAIN/SELLA/IACS WITHOUT AND WITH CONTRAST CLINICAL INFORMATION: Follow-up acoustic neuroma. Follow-up pituitary adenoma. COMPARISON: MR brain 02/03/2023. MR brain 12/04/2021 from [facility]. TECHNIQUE: Multiplanar, multisequence MRI of the brain, ICAs, and Sella was obtained before and after the intravenous administration of 5 mL Gadavist. Standard sequences were utilized. Examination performed on a 1.5 Sagrario Siemens high-field unit. FINDINGS: SELLA: There is mild sellar expansion. There is redemonstration of a hypoenhancing oval mass in the right aspect of the sella measuring approximately 1.2 x 1.4 x 1.2 cm (AP, TRV, CC). (This previously measured the same when measured similarly and is stable). There is mild extension into the left cavernous sinus medially, and approximately 40% encasement of the left ICA flow void (series 7, image 7). There is infundibular deviation to the right without infundibular thickening. There is no extension into the suprasellar cistern or compression of suprasellar structures. The optic chiasm is unimpinged. The respective normal pituitary gland is somewhat compressed the right into the right posterior sella. IACS: Within the right distal IAC, there is a stable linear enhancing mass measuring approximately 7 x 2 x 3 mm, unchanged in size and appearance when compared with the prior examination and measured similarly. This is consistent with the patient's known acoustic schwannoma. No additional abnormal enhancement is present within the IACs, petrous temporal bones, or labyrinthine structures. The 7th and 8th cranial nerves on the left are normal in course and caliber. Otherwise normal CSF signal within the prepontine cistern, CP angle cisterns, IACs, and labyrinthine structures. BRAIN: There is no diffusion restriction. There is no intracranial hemorrhage, acute infarction, mass effect, or edema. There is a stable arachnoid cyst in the anterior right middle cranial fossa measuring approximately 1.8 x 3.1 cm in axial plane. Ventricles, sulci, and cisterns are otherwise normal and stable in size and configuration for patient age. No shift of midline. No abnormal hemosiderin deposition is identified. There are a few stable scattered punctate foci of white matter T2 hyperintensity in the periventricular, subcortical, and hemispheric deep white matter. These are nonspecific but statistically most likely relate to small vessel ischemic changes. There is no abnormal intra or extra-axial enhancement. Midline structures appear normally formed. Posterior fossa structures appear normal. Cerebellar tonsils are appropriately located. Major flow voids are preserved within the skull base. The globes and orbital contents demonstrate no abnormalities. Paranasal sinuses demonstrate moderate scattered mucosal thickening throughout the ethmoid sinuses, unchanged. Remainder of the paranasal sinuses are clear. The mastoids and tympanic cavities are normally aerated. Extracranial soft tissues demonstrate no abnormalities. No suspicious bone marrow changes are evident. Atlantoaxial joint is normal. MR/MR head/brain wo/w con IMPRESSION: 1. 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 No significant interval change in size or morphology. 2. Stable enhancing mass in the right IAC measuring up to 6 mm consistent with the patient's known right acoustic schwannoma. No significant interval change in the size or morphology. 3. Stable right middle temporal fossa arachnoid cyst. 4. No intracranial hemorrhage, acute infarction, mass effect, or edema. No abnormal intra or extra-axial enhancement otherwise. 5. Minimal changes of small vessel ischemia. 6. Mild ethmoid paranasal sinus disease, similar. Electronically signed by: Santiago Do MD 12/20/2024 10:00 AM EDT
--- OUTSIDE RECORDS SUMMARY | 2024-12-20 08:29 | XMS_ITS ---
Author Name [facility] Organization Unknown Care Team Organization Name Specialty Phone Email Start Date End Da te [facility] Termed, PROVIDER Primary Care 03/30/202212/21
--- OUTSIDE RECORDS SUMMARY | 2024-12-20 08:29 | XMS_ITS | Clinical Summary ---
Author Organization [address] [place] [address] Address [address] [place] [address] Phone Care Team Providers Care Fish Hatchery Supervisor Name Role Phone Santy Davis MD Primary Care Provider Encounters Date Type Department Care Team Description 11/27/2024 Telephone Neurosurgery [facility] [address] [phone] Mckenzie Samuels MA from Last 3 Months Surgical History Surgery Date Site/Laterality Comments LUMBAR LAMINECTOMY 2001 PROCEDURE: HISTORICAL LUMB LAMINECTOMY COLONOSCOPY 2009, 11/06/13 PROCEDURE: HISTORICAL COLONOSCOPY; COMMENT: repeat 5 years UPPER GASTROINTESTINAL ENDOSCOPY 11/06/2013 PROCEDURE: [place] UPPER GI ENDOSCOPY PERFORMED Medical History Medical [...] [place] Care Teams Fish Hatchery Supervisor Relationship Specialty Start Date End Date Santy Davis MD [address] [place] [address] Dr Willie MA PCP - General Family Medicine 11/27/24
--- OUTSIDE RECORDS SUMMARY | 2024-12-20 08:29 | XMS_ITS | Clinical Summary ---
Author Organization [facility] Address [address] [place] [address] Care Team Providers Care Welding Machine Operator Helper Arc Name Role Phone Unavailable Primary Care Provider [...]
== END 2024-12-20 08:20 | disposition home or self-care (01) ==
LOC: HO.MRI 08:19
PROVIDERS: PCP Family Medicine; Visit Provider Neurological Surgery
DX: D33.3 Benign neoplasm of cranial nerves (principal); D35.2 Benign neoplasm of pituitary gland
CPT/HCPCS: 70553; A9585

== ENCOUNTER 2025-03-18 09:09 | Outpatient (REF) | payer MEDICARE, SELFPAY ==
[2025-03-18 12:15] LABS: Alanine Aminotransferase 50 U/L (0-40); Albumin Level 4.6 g/dL (3.5-5.0); Alkaline Phosphatase 92 U/L (39-117); Anion Gap 11 (12-20); Aspartate Amino Transferase 32 U/L (5-37); Blood Urea Nitrogen 15 mg/dL (9-16); Calcium 9.2 mg/dL (8.4-10.2); Carbon Dioxide 28 mmol/L (22-29); Chloride 105 mmol/L (96-108); Estimated Glomerular Filt Rate > 60; Potassium 3.8 mmol/L (3.3-5.1); Sodium 140 mmol/L (135-145); Total Protein 7.1 g/dL (6.5-8.0)
[2025-03-18 18:43] LABS: Microalbum/Creatinine Ratio Ur 84.5 ug/mg cr (<30)
== END 2025-03-18 09:10 | disposition home or self-care (01) ==
LOC: HO.WFDLDS 09:09
PROVIDERS: PCP Family Medicine; Visit Provider Family Medicine
DX: Z00.00 Encounter for general adult medical examination without abnormal findings (principal); I10 Essential (primary) hypertension; R73.01 Impaired fasting glucose; E66.01 Morbid (severe) obesity due to excess calories; G47.10 Hypersomnia, unspecified; M54.9 Dorsalgia, unspecified; G89.29 Other chronic pain; D48.5 Neoplasm of uncertain behavior of skin; Z68.41 Body mass index [BMI] 40.0-44.9, adult; Z79.1 Long term (current) use of non-steroidal anti-inflammatories (NSAID); Z79.899 Other long term (current) drug therapy
CPT/HCPCS: 36415; 80053; 82043; 82570; 83036; 96160; 99212

== ENCOUNTER 2025-03-18 09:09 | Outpatient (AMB) | payer MEDICARE, SELFPAY ==
--- NOTE | 2025-03-18 09:16 | MHC.PC.OV ---
Vital Signs 03/18/25 09:20 Height 5 ft 11 in Weight 288 lb 6 oz BMI 40.2 BP 134/78 Blood Pressure Location Rt brachial Position Sitting Respiration 16 Pulse 94 Pulse Source Pulse Oximeter Temp 98.4 F Temp Source Oral Pulse Oximetry (%) 95 Oxygen Delivery Method Room Air Intake Visit Reasons: f/u HTN, chronic conditions - see comments Intake Note: Follow up Director Of Student Financial Services Required: No Allergies pregabalin Allergy (Severe, Verified 03/18/25 09:18) Nightmare latex Allergy (Mild, Verified 12/10/24 09:59) rash meperidine (Demerol) Allergy (Unknown, Verified 12/10/24 09:59) hives meloxicam Adverse Reaction (Intermediate, Verified 12/10/24 09:59) Migraine bandages Allergy (Mild, Uncoded 11/07/23 08:47) itchy rash Medication List - Last Reconciled 03/18/25 by Santy Davis MD albuterol sulfate 90 mcg/actuation 2 puffs PO Q4-6H PRN hospital bed (bed,hospital) Electric adjustable bed, Daily As directed, 999 days lisinopril-hydrochlorothiazide 20-25 mg 1 tab PO DAILY 90 days montelukast 10 mg PO BEDTIME 90 days multivitamin (One Daily Multivitamin tablet) 1 tab PO DAILY naproxen 500 mg PO BID 90 days Tobacco use date assessed: 03/18/25 Fall risk assessment: 2 + Falls in past year Last assessed Fall Risk: 03/18/25 Dental Screening Dental Screen Date: 12/10/24 HPI f/u HTN, chronic conditions - see comments HPI Details 64 y/o male presents to f/u HTN, chronic conditions. Blood pressure today 134/78, 94p. He is on lisinopril-HCTZ 20-25mg daily. Notes he has an appt. with sleep medicine coming up. Ongoing complaints of back pain. HPI Comments History of Present Illness Details Documentation assistance for Santy Davis MD, was provided by Roberto Coulter,? Medical Assisting Program Director on 03/18/2025 at 9:30 AM JOSE JUAN. I, Dr. Davis, have read, observed, and verified documentation. [facility] Medical History (Updated 03/15/25 @ 08:21 by Santy Davis MD) Hypertension Use of cane as ambulatory aid Failed back surgical syndrome Morbid obesity with BMI of 40.0-44.9, adult GERD (gastroesophageal reflux disease) Left-sided weakness Asthma Anxiety with depression Mass, brain Surgical History H/O colonoscopy (~02/2019) History of spinal fusion History of eye surgery Family History Brother Colon cancer Social History (Updated 03/18/25 @ 09:33 by Alisia Che CMA) Household Members: Other Housing: House Are you a primary ambulatory care coordinator to a significant other at home: No Do you presently have visiting nurse or other home services: No 75 years or older and lives alone: No Alcohol intake: current Alcohol intake frequency: holidays/special occasions only Alcohol type: wine Patient Tobacco Use Status: Former Tobacco user e-Cigarette/Vaping Use: Never Used Second Hand Smoke Exposure: No Substance Use Type: Marijuana service: No Current occupational status: retired and disabled Current occupational exposures/hazards: No Sexual orientation: Unable to collect Gender identity: Unable to collect Cognitive needs: Yes (cane, walker, wheelchair) Hearing needs: No Vision needs: Yes (glasses) Questionnaire Thrive Questionnaire Date Thrive assessed: 12/04/24 I am a: Patient What is your living situation today?: I have a steady place to live Within the past 12 months, did the food you bought not last and you didn't have the money to get more?: Never true Within the past 12 months, did you worry whether your food would run out before you got money to buy more?: Never true Do you have trouble paying for medicines?: Yes Do you have trouble getting transportation to medical appointments?: No Do you have trouble paying your heating and electricity bill?: No Do you have trouble taking care of your child, family member or friend?: No Do you have trouble with day-to-day activities such as bathing, preparing meals, shopping, managing finances, etc.?: Yes Are you currently unemployed and looking for a job?: I choose not to answer this question Are you interested in more education?: No Please select the resources that you would like help with: None Currently or been in a relationship where the following occur: No concerns reported THRIVE Score: 0 AUDIT C Alcohol Use Questionnaire (AUDIT-C) 1. How often do you have a drink containing alcohol?: 2-4 times a month 2. How many drinks containing alcohol do you have on a typical day when you are drinking?: 1 or 2 3. How often do you have six or more drinks on one occasion?: Never Total Score: 2 SHWETA-7 AMB Questionnaire SHWETA-7 Date SHWETA - 7 assessed: 04/30/24 Source: Developed by Drs. Federico Kwan, Raven Anderson, Arnulfo Cooley and colleagues, with an educational jacob from [employer]. ACT Questionnaire In the past 4 weeks, how much of the time did your asthma keep you from getting as much done at work, school or at home?: Some of the time During the past 4 weeks, how often did your asthma symptoms wake you up at night or earlier than usual in the morning?: Once a week During the past 4 weeks, how often have you had to use your rescue inhaler or nebulizer medication?: More than 3 times per day How would you rate your asthma control during the past 4 weeks?: Somewhat controlled ACT Interpretation: Positive Score: 10 Review of Systems Const Denies chills, Denies fatigue, Denies fever(s), Denies headache(s) and Denies weakness ENT Denies dizziness and Denies headache(s) Card Denies dyspnea Resp Denies cough, Denies dyspnea, Denies wheezing and Denies other (shortness of breath) Musc Denies numbness and Denies tingling Neuro Denies dizziness, Denies headache(s), Denies numbness, Denies tingling and Denies weakness Psych Denies anxiety and Denies depression Endo Denies fatigue Aller/Immun Denies wheezing Physical exam (Primary Care) Vital Signs: Last Vital Signs Temp 98.4 F 03/18/25 09:20 Pulse 94 03/18/25 09:20 Resp 16 03/18/25 09:20 BP 134/78 03/18/25 09:20 Pulse Ox 95 03/18/25 09:20 Oxygen Delivery Method Room Air 03/18/25 09:20 BMI result Body Mass Index 40.2 Tobacco/Smoking Status: Tobacco use Status Tobacco use date assessed 03/18/25 03/18/25 09:26 Patient Tobacco Use Status Former Tobacco user 03/18/25 09:33 e-Cigarette/Vaping Use Never Used 03/18/25 09:33 Thrive Assessment: Date of Thrive Assessment Date Thrive assessed 12/04/24 03/18/25 09:16 Currently or been in a relationship where the following occur: No concerns reported Const General: well developed; No acute distress Nutritional Appearance: well nourished Orientation/consciousness: patient oriented x3 HENMT Head: Yes normocephalic and Yes atraumatic Eyes General: appearance normal, both eyes and all related structures Pupils: Equal, round and reactive pupils present EOM: EOMs intact bilaterally Resp Effort & Inspection: normal respiratory effort Neuro General: patient oriented x3 and gait normal Cranial nerves: Yes Equal, round and reactive pupils present Psych Affect: normal affect Coding Level of Care Code Est Pt Level 4 (18632) Diagnoses Hypertension I10 Hypersomnia G47.10 Chronic back pain M54.9; G89.29 Neoplasm of uncertain behavior of skin D48.5 Additional Codes Asthma Control Questionnaire - ACT Interpretation: Positive ([id number]) Assessment & Plan Assessment & Plan (1) Hypertension: Code(s): I10 - Essential (primary) hypertension Category: Medical Plan: Blood pressure is controlled. Goal is less than 140/90 Continue current medication (2) Hypersomnia: Code(s): G47.10 - Hypersomnia, unspecified Category: Medical Plan: Ongoing hypersomnia Patient notes that was having vivid dreams and nightmares. Follow-up with sleep medicine. He says he now has an appointment. He has stopped pregabalin and since then dreams have stopped (3) Chronic back pain: Code(s): M54.9 - Dorsalgia, unspecified; G89.29 - Other chronic pain Category: Medical Plan: Patient was taking naproxen and pregabalin but pregabalin was associated with nightmares Patient has stopped this medication. Still taking naproxen Has not had his lumbar spine x-rays done yet and I encouraged him to go to [facility] in get this done. Will follow-up in about a month (4) Neoplasm of uncertain behavior of skin: Code(s): D48.5 - Neoplasm of uncertain behavior of skin Category: Medical Plan: Melanotic scrotal lesions He is referred to Dermatology Orders: Orders Hemoglobin A1c Today E66.01 - Morbid (severe) obesity due to excess calories, R73.01 - Impaired fasting glucose Comprehensive [place]. Panel Fast Today E66.01 - Morbid (severe) obesity due to excess calories, Z00.00 - Encounter for general adult medical examination without abnormal findings
[2025-03-18 09:20] VITALS: BP 134/78; PULSE 94; RESP 16; TEMP 36.9; O2SAT 95; BMI 40.2
--- OUTSIDE RECORDS SUMMARY | 2025-03-18 10:01 | XMS_ITS | Clinical Summary ---
Author Organization [address] [facility] Address [address] [place] [address] Phone Care Team Providers Care Associate Software Engineer Name Role Phone Santy Davis MD Primary Care Provider Encounters Date Type Department Care Team Description 12/27/2024 Telephone Neurosurgery [facility] [address] [id number] Marcela Rocha MD from Last 3 Months Surgical History Surgery Date Site/Laterality Comments LUMBAR LAMINECTOMY 2001 PROCEDURE: HISTORICAL LUMB LAMINECTOMY COLONOSCOPY 2009, 11/06/13 PROCEDURE: HISTORICAL COLONOSCOPY; COMMENT: repeat 5 years UPPER GASTROINTESTINAL ENDOSCOPY 11/06/2013 PROCEDURE: [place] UPPER GI ENDOSCOPY PERFORMED Medical History Medical [...] Health Maintenance Due Date Last Done Comments Colorectal Cancer Screening: Colonoscopy 1960 Hepatitis A Vaccines (1 of 2 - Risk 2-dose series) 1979 RSV Immunization Adult Patients (1 - Risk 50-74 years 1-dose series) 2010 Zoster Vaccines (1 of 2) 2010 Pneumococcal Vaccine: 50+ Years (2 of 2 - PCV) 02/02/2019 02/02/2018 Hepatitis B Vaccines (1 of 3 - Risk 3-dose series) 2020 Cholesterol Screening (Lipid Panel) 05/01/2022 HIV Screening 05/01/2022 Hepatitis C Screening 05/01/2022 Medicare Annual Wellness Visit 05/01/2022 Social Influencers of Health Screening 05/01/2022 Hypertension/CHF/CAD Annual BMP Blood Test 07/06/2023 Depression Screening 05/23/2024 COVID-19 Vaccine ( season) 2025 07/10/2021, 09/21/2020, 08/31/2020 Influenza Vaccine (#1) 2025 2, 05/19/2020, 01/26/2019, [...] [place] - [place] Care Teams Associate Software Engineer Relationship Specialty Start Date End Date Santy Davis MD [address] [place] [address] Dr Willie MA PCP - General Family Medicine 11/27/24
--- OUTSIDE RECORDS SUMMARY | 2025-03-18 10:01 | XMS_ITS | Clinical Summary ---
Author Organization [facility] Address [address] [place] [address] Care Team Providers Care Trampoline Team Coach Name Role Phone Unavailable Primary Care Provider [...]
== END 2025-03-18 09:44 | disposition home or self-care (01) ==
LOC: HO.HMCFM 09:10
PROVIDERS: PCP Family Medicine; Visit Provider Family Medicine
DX: I10 Essential (primary) hypertension (principal); G47.10 Hypersomnia, unspecified; M54.9 Dorsalgia, unspecified; G89.29 Other chronic pain; D48.5 Neoplasm of uncertain behavior of skin

== ENCOUNTER 2025-04-15 13:31 | Outpatient (AMB) | payer MEDICARE, SELFPAY ==
--- NOTE | 2025-04-15 13:35 | A.OFFVIS_ITS ---
Vital Signs 04/15/25 13:36 Height 5 ft 9 in Weight 286 lb 4 oz BMI 42.3 BP 144/92 H Blood Pressure Location Rt brachial Position Sitting Pulse 87 Pulse Source Pulse Oximeter Pulse Oximetry (%) 91 L Oxygen Delivery Method Room Air Intake Visit Reasons: INP-Hypersomnia Intake Note: Patient presents HYGIENE COORDINATOR Hypersomnia. Pt notes he does not sleep that well. Feels fatigue/unrested during the day. Hard time falling/staying asleep. No snoring/apnea/gasping. Goes to bed at 10pm wakes up at 3-6am. Wakes 4-6times a night. No naps/headaches. No history of sleep studies. Accompanied by: Self / Same As Patient Allergies pregabalin Allergy (Severe, Verified 04/15/25 13:40) Nightmare latex Allergy (Mild, Verified 04/15/25 13:40) rash meperidine (Demerol) Allergy (Unknown, Verified 04/15/25 13:40) hives meloxicam Adverse Reaction (Intermediate, Verified 04/15/25 13:40) Migraine bandages Allergy (Mild, Uncoded 11/07/23 08:47) itchy rash HPI Comments Details: 65 year old male is referred to us for an evaluation of JENS per his pcp Dr. Davis. He is here with his Porsha who helps with history taking today. He goes to bed around 10pm and is unable to fall asleep, and stay asleep. He wakes up multiple times with radiating chronic low back pain and h/o L4 / L5 infusion in 2000. He sleeps with pillows in his between his knees. He wakes up at about 3 am to 6am sits in the recliner and naps if he is able to and continues to have fragmented sleep pattern. He snores loudly, has asthma, and allergies to leaves and mold with post nasal drip when laying on his back. He takes montelukast and this helps with allergies. 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 Cold weather and rain make it worse. He used to punch, kick in his dreams when he was taking lyrica so he discontinued use. He has vivid dreams now talks in his sleep when sleeping in recliner. His legs cramp bilaterally from thighs to calves and to feet causing him to jump out of his recliner then uses a percussion tool to loosen the stiff muscles.He has anxiety, managed with meditation, diet and lifestyle. Memory is stable. She denies morning headaches, Gerd, nocturia, witnessed apneas, RLS, abnormal sleep movement, and hallucinations. [facility] Medical History Hypertension Use of cane as ambulatory aid Failed back surgical syndrome Morbid obesity with BMI of 40.0-44.9, adult GERD (gastroesophageal reflux disease) Left-sided weakness Asthma Anxiety with depression Mass, brain Surgical History H/O colonoscopy (~02/2019) History of spinal fusion History of eye surgery Family History Brother Colon cancer Social History Household Members: Other Housing: House Are you a primary care professional to a significant other at home: No Do you presently have visiting nurse or other home services: No 75 years or older and lives alone: No Alcohol intake: current Alcohol intake frequency: holidays/special occasions only Alcohol type: wine Patient Tobacco Use Status: Former Tobacco user e-Cigarette/Vaping Use: Never Used Second Hand Smoke Exposure: No Substance Use Type: Marijuana service: No Current occupational status: retired and disabled Current occupational exposures/hazards: No Sexual orientation: Unable to collect Gender identity: Unable to collect Cognitive needs: Yes (cane, walker, wheelchair) Hearing needs: No Vision needs: Yes (glasses) Physical Exam Vital Signs: Last Vital Signs Pulse 87 04/15/25 13:36 BP 144/92 H 04/15/25 13:36 Pulse Ox 91 L 04/15/25 13:36 Oxygen Delivery Method Room Air 04/15/25 13:36 BMI result Body Mass Index 42.3 Const General: cooperative, comfortable and no acute distress Nutritional Appearance: average body habitus and obese Orientation/consciousness: patient oriented x3 Limitations: ambulation with cane HEENT Face and sinus: Yes face symmetric Teeth and gingiva: other (mallampti score is 4) Eyes Pupils: Equal, round and reactive pupils present Neck Neck: Yes full ROM Resp Effort & Inspection: normal respiratory effort and able to speak in complete sentences Neuro General: patient oriented x3 and moves all extremities Cranial nerves: Yes Equal, round and reactive pupils present, Yes Normal accommodation reflex present, Yes Normal facial strength present, Yes Midline tongue present, Yes Ability to bilaterally rotate head present and Yes Ability to bilaterally elevate shoulders present Cognition (Neuro): normal cognition Gait exam (Neuro): Normal gait present Motor exam (neuro): 5/5 motor strength present throughout and Normal motor muscle tone present throughout Psych Appearance: grossly normal Speech and movement: Normal speech and movement present Thought process: Normal thought process present Thought content: Normal thought content present Assessment & Plan Assessment & Plan (1) Excessive daytime sleepiness: Code(s): G47.19 - Other hypersomnia Category: Medical (2) Loud snoring: Code(s): R06.83 - Snoring Category: Medical Plan HST r/o JENS RLS will monitor cramps in legs/ thighs, calves, foot. Continue Magnesium 400mg, B12 1000mcg and Vit D3 1000unit daily Will f/u in 3 months Orders: Orders RT home sleep study Today G47.19 - Other hypersomnia Patient Instructions: Sleep Hygiene provided: set a scheduled bedtime and wake time to help regulate the circadian rhythm and balance the release of pituitary hormones. Sleep in a dark room, temperatures below 68 degrees, and no devices n bed. Limit caffeinated products 6 hours prior to bed, and limit fluids 2-4 hours prior to bed. Gentle night yoga, diffusing essential oils, and playing soft music can be relaxing. Coding Level of Care Code New Pt Level 4 (64738) Diagnoses Excessive daytime sleepiness G47.19 Loud snoring R06.83 Sleep Questionnaire Difficulty falling asleep: Yes Difficulty staying asleep?: Yes Number of arousals: 2-3 Snoring: Yes Witnessed apneas: No Gasping arousals: No Nocturia: No GERD: No Vivid dreams: Yes Acting out dreams: Yes Abnormal behavior in sleep: No Abnormal movements in sleep: No Morning headaches: No Excessive daytime sleepiness: Yes Daytime naps: Yes Restless legs: No Hallucinations: No Sleep paralysis: No Drop attacks: No Sleep Study: No CPAP: No
[2025-04-15 13:36] VITALS: BP 144/92; PULSE 87; O2SAT 91; BMI 42.3
--- OUTSIDE RECORDS SUMMARY | 2025-04-15 18:18 | XMS_ITS | Clinical Summary ---
Author Organization [facility] Address [address] [place] [address] Care Team Providers Care Sole Layer Name Role Phone Unavailable Primary Care Provider [...] of 2) 2010 Influenza Vaccine (#1) 2025 Fall Risk Assessment 2025 Pneumococcal Vaccine (1 of 1 - [...]
--- OUTSIDE RECORDS SUMMARY | 2025-04-15 18:18 | XMS_ITS | Clinical Summary ---
Author Organization [address] [place] [address] Address [address] [place] [address] Phone Care Team Providers Care Obstetric Assistant Name Role Phone Santy Davis MD Primary Care Provider [phone] Surgical History Surgery Date Site/Laterality Comments LUMBAR LAMINECTOMY 2001 PROCEDURE: HISTORICAL LUMB LAMINECTOMY COLONOSCOPY 2009, 11/06/13 PROCEDURE: HISTORICAL COLONOSCOPY; COMMENT: repeat 5 years UPPER GASTROINTESTINAL ENDOSCOPY 11/06/2013 PROCEDURE: [place] UPPER GI ENDOSCOPY PERFORMED Medical History Medical [...] of 3 - Risk 3-dose series) 2020 Abdominal Aortic Aneurysm (AAA) Screen 05/01/2022 Cholesterol Screening (Lipid Panel) 05/01/2022 Hepatitis C Screening 05/01/2022 Medicare Annual Wellness Visit 05/01/2022 Social Influencers of Health Screening 05/01/2022 Hypertension/CHF/CAD Annual BMP Blood Test 07/06/2023 Depression Screening 05/23/2024 COVID-19 Vaccine ( season) 2025 07/10/2021, 09/21/2020, 08/31/2020 Influenza Vaccine (#1) 2025 2, 05/19/2020, 01/26/2019, Additional history exists Falls Risk Assessment 2025 DTaP,Tdap,and Td Vaccines (2 - Td or [...] [place] Care Teams Obstetric Assistant Relationship Specialty Start Date End Date Santy Davis MD NPI: [id number] [place] [address] Dr Tapia [place] PCP - General Family Medicine 11/27/24
== END 2025-04-15 14:27 | disposition home or self-care (01) ==
LOC: HO.HSMS 13:31
PROVIDERS: PCP Family Medicine; Visit Provider Physician Assistant Medical
DX: G47.19 Other hypersomnia (principal); R06.83 Snoring
CPT/HCPCS: 99204

== ENCOUNTER → 2025-04-15 13:31 | Outpatient (BNVA) | payer MEDICARE, SELFPAY | PROVIDERS: PCP Family Medicine; Visit Provider Physician Assistant Medical | DX: R06.83 Snoring (principal); G47.19 Other hypersomnia | CPT/HCPCS: 99202 ==

== ENCOUNTER 2025-04-25 15:55 | Outpatient (REF) | payer MEDICARE, SELFPAY ==
--- NOTE | ~2025-04-25 | XR_ITS ---
EXAMINATION: XR LUMBOSACRAL SPINE CLINICAL INFORMATION: M54.9 - Dorsalgia, unspecified COMPARISON: None available. TECHNIQUE: Three views of the lumbosacral spine. FINDINGS: On the frontal view, there appear to be 5 nonrib-bearing vertebral bodies. On the lateral projection, the L5 vertebral body, L5-S1 disc space is not well visualized, due to overlapping pelvic structures.. As the disc space is not well visualized, transitional anatomy cannot be excluded. There is mild L4-5 anterolisthesis. Vertebral body heights are maintained. No evidence of acute fracture. Mild-moderate L4-5 disc degeneration. There is multilevel endplate spurring present. Multilevel facet degeneration. SI joints are intact. No suspicious soft tissue calcification. XR/XR lumbar spine 2-3V IMPRESSION: * The presumed L5 vertebral body and the L5-S1 disc space on the lateral projection not clearly visualized. Overlapping pelvic structures limiting evaluation. Transitional anatomy cannot be excluded. Recommend close clinical and radiographic correlation prior to any procedure/intervention.. * No radiographic evidence of acute fracture. * Mild-moderate L4-5 disc degeneration with mild anterolisthesis. Electronically signed by: Regulo Bauer MD 04/26/2025 01:46 PM [facility]
--- OUTSIDE RECORDS SUMMARY | 2025-04-25 22:00 | XMS_ITS | Clinical Summary ---
Author Organization [address] [place] [address] Address [address] [place] [address] Phone Care Team Providers Care Roasterman Name Role Phone Santy Davis MD Primary Care Provider Surgical History Surgery Date Site/Laterality Comments LUMBAR LAMINECTOMY 2001 PROCEDURE: HISTORICAL LUMB LAMINECTOMY COLONOSCOPY 2009, 11/06/13 PROCEDURE: HISTORICAL COLONOSCOPY; COMMENT: repeat 5 years UPPER GASTROINTESTINAL ENDOSCOPY 11/06/2013 PROCEDURE: [place] UPPER GI ENDOSCOPY PERFORMED Medical History Medical [...] [place] Care Teams Roasterman Relationship Specialty Start Date End Date Santy Davis MD NPI: [id number] [place] [address] Dr Tapia [place] PCP - General Family Medicine 11/27/24
--- OUTSIDE RECORDS SUMMARY | 2025-04-25 22:00 | XMS_ITS | Clinical Summary ---
Author Organization [facility] Prior to 10/20/24 Address [address] [place] [address] Care Team Providers Care Pododermatologist Name Role Phone Unavailable Primary Care Provider [...]
== END 2025-04-25 15:56 | disposition home or self-care (01) ==
LOC: HO.HMGCX 15:55
PROVIDERS: PCP Family Medicine; Visit Provider Family Medicine
DX: G89.29 Other chronic pain (principal); M54.9 Dorsalgia, unspecified
CPT/HCPCS: 72100

== ENCOUNTER → 2025-04-25 15:59 | Outpatient (BNV) | payer MEDICARE, SELFPAY | PROVIDERS: PCP Family Medicine; Visit Provider Radiology Diagnostic Ultrasound | DX: M51.360 Other intervertebral disc degeneration, lumbar region with discogenic back pain only (principal); M43.16 Spondylolisthesis, lumbar region | CPT/HCPCS: 72100 ==

== ENCOUNTER 2025-04-29 09:55 | Outpatient (AMB) | payer MEDICARE, SELFPAY ==
--- NOTE | 2025-04-29 10:01 | A.OFFPC_ITS ---
Vital Signs 04/29/25 10:05 Height 5 ft 9 in Weight 287 lb BMI 42.4 BP 128/82 Blood Pressure Location Rt brachial Position Sitting Respiration 16 Pulse 70 Pulse Source Pulse Oximeter Temp 97.3 F Temp Source Temporal Artery Scan Pulse Oximetry (%) 97 Oxygen Delivery Method Room Air Intake Visit Reasons: Annual PE - see comments Intake Note: Aaron presents in the office today for his annual physical. 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 Allergies pregabalin Allergy (Severe, Verified 04/29/25 10:06) Nightmare latex Allergy (Mild, Verified 04/29/25 10:06) rash meperidine (Demerol) Allergy (Unknown, Verified 04/29/25 10:06) hives meloxicam Adverse Reaction (Intermediate, Verified 04/29/25 10:06) Migraine bandages Allergy (Mild, Uncoded 04/29/25 10:06) itchy rash Medication List - Last Reconciled 04/29/25 by Santy Davis MD albuterol sulfate 90 mcg/actuation 2 puffs PO Q4-6H PRN hospital bed (bed,hospital) Electric adjustable bed, Daily As directed, 999 days lisinopril-hydrochlorothiazide 20-25 mg 1 tab PO DAILY 90 days montelukast 10 mg PO BEDTIME 90 days multivitamin (One Daily Multivitamin tablet) 1 tab PO DAILY naproxen 500 mg PO BID 90 days Tobacco use date assessed: 04/29/25 Dental Screening Dental Screen Date: 04/29/25 Did you have a dental visit in the last 12 months?: Yes Did you have a dental problem in the last 6 months where you did not have access to dental care?: No Was dental information given to patient?: Patient has dentist HPI Annual PE - see comments HPI Details 65 y/o male presents for a CPE with f/u labs, health maint. Labs drawn 03/18/25. Reviewed labs with pt. A1c 5.8%. AST 32. ALT 50. No recent lipid panel to review. Blood pressure today 128/82, 70p. He is on lisinopril-HCTZ 20-25mg daily. Chronic back pain. Lumbar spine xray 04/25/25 shows mild-moderate L4-5 disc degeneration with mild anterolisthesis. Notes he has been falling due to leg numbness. Reports episode of heart palpitation last night. Reports difficulty urinating. He notes he follows up with urology. [facility] Medical History Hypertension Use of cane as ambulatory aid Failed back surgical syndrome Morbid obesity with BMI of 40.0-44.9, adult GERD (gastroesophageal reflux disease) Left-sided weakness Asthma Anxiety with depression Mass, brain Surgical History H/O colonoscopy (~02/2019) History of spinal fusion History of eye surgery Family History Brother Colon cancer Social History (Updated 04/29/25 @ 10:06 by Liv Hebert CMA) Household Members: Other Housing: House Are you a primary child care centre manager to a significant other at home: No Do you presently have visiting nurse or other home services: No 75 years or older and lives alone: No Alcohol intake: current Alcohol intake frequency: holidays/special occasions only Alcohol type: wine Patient Tobacco Use Status: Former Tobacco user e-Cigarette/Vaping Use: Never Used Second Hand Smoke Exposure: No Use of substances other than those prescribed or required for medical reasons: No Substance Use Type: Marijuana service: No Current occupational status: retired and disabled Current occupational exposures/hazards: No Sexual orientation: Unable to collect Gender identity: Unable to collect Cognitive needs: Yes (cane, walker, wheelchair) Hearing needs: No Vision needs: Yes (glasses) Questionnaire PHQ-9 Over the last 2 weeks, how often have you been bothered by any of the following problems? 1. Little interest or pleasure in doing things: more than half the days 2. Feeling down, depressed, or hopeless: more than half the days 3. Trouble falling or staying asleep, or sleeping too much: nearly every day 4. Feeling tired or having little energy: more than half the days 5. Poor appetite or overeating: several days 6. Feeling bad about yourself - or that you are a failure or have let yourself or your family down: more than half the days 7. Trouble concentrating on things, such as reading the newspaper or watching television: not at all 8. Moving or speaking so slowly that other people could have noticed. Or the opposite - being so fidgety or restless that you have been moving around a lot more than usual: not at all 9. Thoughts that you would be better off or of hurting yourself in some way: not at all Total score: 12 Depression Screening Interpretation: Positive Depression Screening Follow-up: Community Mental Health Worker F/U Depression Screening Done: Yes 82229 - PHQ-9 Billing: Yes Source: Developed by Drs. Federico Kwan, Raven Anderson, Arnulfo Cooley and colleagues, with an educational jacob from [employer]. Thrive Questionnaire Date Thrive assessed: 12/04/24 I am a: Patient What is your living situation today?: I have a steady place to live Within the past 12 months, did the food you bought not last and you didn't have the money to get more?: Never true Within the past 12 months, did you worry whether your food would run out before you got money to buy more?: Never true Do you have trouble paying for medicines?: Yes Do you have trouble getting transportation to medical appointments?: No Do you have trouble paying your heating and electricity bill?: No Do you have trouble taking care of your child, family member or friend?: No Do you have trouble with day-to-day activities such as bathing, preparing meals, shopping, managing finances, etc.?: Yes Are you currently unemployed and looking for a job?: I choose not to answer this question Are you interested in more education?: No Please select the resources that you would like help with: None Currently or been in a relationship where the following occur: No concerns reported THRIVE Score: 0 SHWETA-7 AMB Questionnaire SHWETA-7 Date SHWETA - 7 assessed: 04/29/25 Feeling nervous, anxious, or on edge: 2 = More than half the days Not being able to stop or control worryin = More than half the days Worrying too much about different things: 0 = Not at all Trouble relaxin = More than half the days Being so restless that it is hard to sit still: 0 = Not at all Becoming easily annoyed or irritable: 0 = Not at all Feeling afraid as if something awful might happen: 1 = Several days Total SHWETA-7 score (0-4 normal; 5-9 mild; 10-14 moderate; 15-21 severe): 7 Source: Developed by Drs. Federico Kwan, Raven Anderson, Arnulfo Cooley and colleagues, with an educational jacob from [employer]. SHWETA-7 Assessment Billing SHWETA-7 Assessment Tool: SHWETA-7 Assessment 98327 Review of Systems Const Denies chills, Denies fatigue, Denies fever(s), Denies headache(s) and Denies weakness Eyes Denies change in vision ENT Denies dizziness, Denies headache(s), Denies hearing loss, Denies nasal congestion, Denies sinus pain, Denies sinus pressure and Denies sore throat Card Denies chest pain, Denies lightheadedness, Denies dyspnea and Denies other (palpitations) Resp Denies cough, Denies dyspnea and Denies wheezing GI Denies abdominal pain, Denies melena, Denies hematochezia, Denies change in bowel habits, Denies dyspepsia and Denies nausea Denies hematuria and Denies dysuria Musc Denies abnormal gait, Reports back pain, Denies numbness and Denies tingling Skin/Breast Denies rash, Denies unusual bruising and Denies wounds Neuro Denies abnormal gait, Denies dizziness, Denies headache(s), Denies memory loss, Denies numbness, Denies Sensory deficit (Neuro), Denies tingling and Denies weakness Psych Denies anxiety, Denies depression and Denies memory loss Endo Denies cold intolerance, Denies fatigue, Denies heat intolerance, Denies polydipsia and Denies polyuria Rudy/Lymph Denies easy bleeding and Denies easy bruising Aller/Immun Denies wheezing Physical exam (Primary Care) Vital Signs: Last Vital Signs Temp 97.3 F 04/29/25 10:05 Pulse 70 04/29/25 10:05 Resp 16 04/29/25 10:05 BP 128/82 04/29/25 10:05 Pulse Ox 97 04/29/25 10:05 Oxygen Delivery Method Room Air 04/29/25 10:05 BMI result Body Mass Index 42.4 Tobacco/Smoking Status: Tobacco use Status Tobacco use date assessed 04/29/25 04/29/25 10:09 Patient Tobacco Use Status Former Tobacco user 04/29/25 10:06 e-Cigarette/Vaping Use Never Used 04/29/25 10:06 PHQ-9: PHQ-9 Score PHQ-9: Total score 12 04/29/25 10:41 Depression Screening Interpretation: Positive Depression Screening Follow-up: Community Mental Health Worker F/U Thrive Assessment: Date of Thrive Assessment Date Thrive assessed 12/04/24 04/29/25 10:03 Currently or been in a relationship where the following occur: No concerns reported Const General: no acute distress, well developed, alert and awake Nutritional Appearance: well nourished and obese morbidly obese Orientation/consciousness: patient oriented x3 HENMT Head: Yes normocephalic and Yes atraumatic Ears: hearing grossly normal bilaterally and TM's normal bilaterally General nose exam: Normal external nose present and Normal nares present Mouth: Normal oral and palatal mucosa present and moist mucous membranes Teeth and gingiva: dentition normal Throat: Yes posterior oropharynx normal Eyes General: appearance normal, both eyes and all related structures Pupils: Equal, round and reactive pupils present and Pupil accommodation reflex normal EOM: EOMs intact bilaterally Neck Neck: Yes normal visual inspection, Yes no lymphadenopathy and Yes trachea midline Thyroid: Thyroid normal Carotids: no bruits Lymphatic: no lymphadenopathy noted Chest Chest palpation & inspection: normal inspection of the chest Resp Effort & Inspection: normal respiratory effort Auscultation: clear to auscultation bilaterally Cardio Rate: regular rate Rhythm: regular rhythm Heart sounds: S1 normal heart sound present, S2 normal heart sound present, no gallops, no murmurs and no rubs Bruits: no abdominal aortic bruits and no carotid bruits GI Palpation (GI): No Abdominal aortic bruit present, Soft to palpation, nontender, No hepatosplenomegaly present and No Rebound tenderness present Auscultation: normal bowel sounds General: Yes no CVA tenderness Back/Spine/Pelvis Back: no CVA tenderness Cervical Spine: cervical ROM normal and No Cervical spine tenderness Thoracic/Lumbar Spine: thoraco-lumbar ROM normal, No pain with thoraco-lumbar ROM, No thoracic spinal tenderness and No lumbar spinal tenderness Skin Lesions: no lesions Rashes: no rashes Trauma: no lacerations or abrasions Wounds: no wounds Nails: normal Neuro General: patient oriented x3 Cranial nerves: Yes Equal, round and reactive pupils present Cognition (Neuro): normal cognition Gait exam (Neuro): Normal gait present Motor exam (neuro): 5/5 motor strength present throughout Sensory Exam: No Sensory deficit (Neuro) Deep tendon reflexes (DTR's): Right patellar reflex intensity grade: 2+ and Left patellar reflex intensity grade: 2+ Extrem General: Yes normal to inspection and No edema Psych Appearance: grossly normal Affect: normal affect Attitude: cooperative Thought process: Normal thought process present Office Procedures Flu Questionnaire Does the patient have a severe egg allergy?: No Does the patient have severe life threatening allergies?: No Does the patient have a fever or illness today?: No Has the patient ever had Guillain-[place] Syndrome?: No Has the patient ever had any past reaction to a flu shot?: No Immunizations Fluarix [id number] (PF) 45 mcg (15 mcg x 3)/0.5 mL IM syringe Performing Provider: Santy Davis MD Performing Location: [facility] Administered by: Alisia Che CMA on 04/29/25 10:15 Dose Route Admin Location Dispensed Lot Number Expiration Date [facility] 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2 Urinary hesitancy R39.11 Additional Codes SHWETA-7 Assessment Billing - SHWETA-7 Assessment Tool: SHWETA-7 Assessment 34127 ([id number]) PHQ-9 - 75158 - PHQ-9 Billing: Yes ([id number]) Assessment & Plan Assessment & Plan (1) Adult general medical exam: Code(s): Z00.00 - Encounter for general adult medical examination without abnormal findings Category: Medical Plan: So 65-year-old male presents for complete physical exam (2) Immunization counseling: Code(s): Z71.85 - Encounter for immunization safety counseling Category: Medical (3) Hypertension: Code(s): I10 - Essential (primary) hypertension Category: Medical Plan: Blood pressure is controlled. Goal is less than 140/90 (4) Chronic back pain: Code(s): M54.9 - Dorsalgia, unspecified; G89.29 - Other chronic pain Category: Medical Plan: Ongoing back pain and mild spondylolisthesis on x-ray Referred to ortho (5) Pre-diabetes: Code(s): R73.03 - Prediabetes Category: Medical Plan: A1c 5.8% Work at a diet low in sugars and starches (6) Elevated liver enzymes: Code(s): R74.8 - Abnormal levels of other serum enzymes Category: Medical Plan: Improving Will continue to monitor Encouraged weight loss and good hydration (7) Screening for prostate cancer: Code(s): Z12.5 - Encounter for screening for malignant neoplasm of prostate Category: Medical Plan: PSA in May was within normal limits However, patient notices hesitancy and decreased urine stream Referred to urology (8) Screening for colon cancer: Code(s): Z12.11 - Encounter for screening for malignant neoplasm of colon Category: Medical Plan: Followed by Gastroenterology at [facility] F/u as recommended (9) Palpitation: Code(s): R00.2 - Palpitations Category: Medical Plan: Patient notes single episode of palpitations. He also had significantly high blood pressure. EKG: Normal sinus rhythm, normal axis, no hypertrophy, no ST-T-wave changes. Normal EKG. Patient is being followed by sleep medicine and has sleep study ordered Paliptation likely 2ndry to sleep apnea f/u sleep med (10) Urinary hesitancy: Code(s): R39.11 - Hesitancy of micturition Category: Medical Plan Immunization counseling: Patient is 65 and should get pneumonia shot Can also get RSV, his shingles #2, flu shot and COVID Not due for Tdap yet Orders: Orders Influenza [id number] Immunization Today Z23 - Encounter for immunization AMB EKG-In Office Today R00.2 - Palpitations Referrals Orthopedics Referral G89.29 - Other chronic pain, M54.9 - Dorsalgia, unspecified Urology Referral R39.11 - Hesitancy of micturition
[2025-04-29 10:05] VITALS: BP 128/82; PULSE 70; RESP 16; TEMP 36.3; O2SAT 97; BMI 42.4
== END 2025-04-29 11:16 | disposition home or self-care (01) ==
LOC: HO.HMCFM 09:56
PROVIDERS: PCP Family Medicine; Visit Provider Family Medicine
DX: Z00.00 Encounter for general adult medical examination without abnormal findings (principal); I10 Essential (primary) hypertension; R00.2 Palpitations; M54.9 Dorsalgia, unspecified; R73.03 Prediabetes; R39.11 Hesitancy of micturition; R74.8 Abnormal levels of other serum enzymes; Z12.5 Encounter for screening for malignant neoplasm of prostate; Z23 Encounter for immunization

== ENCOUNTER → 2025-04-29 09:55 | Outpatient (BNVA) | payer MEDICARE, SELFPAY | PROVIDERS: PCP Family Medicine; Visit Provider Family Medicine | DX: Z00.00 Encounter for general adult medical examination without abnormal findings (principal); Z23 Encounter for immunization; Z71.85 Encounter for immunization safety counseling; Z12.5 Encounter for screening for malignant neoplasm of prostate; Z12.11 Encounter for screening for malignant neoplasm of colon; I10 Essential (primary) hypertension; M54.9 Dorsalgia, unspecified; G89.29 Other chronic pain; R73.03 Prediabetes; R74.8 Abnormal levels of other serum enzymes; R00.2 Palpitations; R39.11 Hesitancy of micturition | CPT/HCPCS: 90471; 90656; 93005; 96127; 99397 ==